=== PATIENT | male | born 1965 | race Caucasian/White ===

== ENCOUNTER 2020-03-08 17:56 | Outpatient (REF) | payer SELFPAY | END 2020-03-08 17:57 | disposition home or self-care (01) | LOC: HO.LAB 17:56 | PROVIDERS: Visit Provider Internal Medicine | DX: Z20.828 Contact with and (suspected) exposure to other viral communicable diseases (principal) | CPT/HCPCS: C9803; U0003 ==

== ENCOUNTER 2022-05-31 10:35 | Emergency (ER) | payer MEDICAID, SELFPAY ==
--- NOTE | ~2022-05-31 | US_ITS ---
EXAMINATION: US SCROTUM CLINICAL INFORMATION: Right testicular pain, urinary symptoms. COMPARISON: None TECHNIQUE: A sonogram of the scrotum was performed assessing hernández-scale appearance and color Doppler flow. Spectral Doppler analysis of the arterial and venous flow were performed in the testes bilaterally. FINDINGS: RIGHT: Right testicle measures 4.5 x 2.3 x 3.1 cm, volume 16.6 mL. No focal testicular parenchymal lesions are visualized. Spectral Doppler analysis of the arterial and venous flow is normal in the right testis. Right epididymal head is normal in size. There are small right hydrocele. Right epididymal Doppler flow is normal. LEFT: Left testicle measures 4.7 x 2.3 x 2.8 cm, volume 15.4 mL. No focal testicular parenchymal lesions are visualized. Spectral Doppler analysis of the arterial and venous flow is normal in the left testis. Left epididymal head is normal in size. No left hydrocele or varicocele is seen. Left epididymal Doppler flow is normal. US/US scrotum IMPRESSION: 1. No intratesticular abnormality bilaterally. 2. Very small right hydrocele.
--- NOTE | ~2022-05-31 | CT_ITS ---
EXAMINATION: CT ABDOMEN AND PELVIS WITHOUT CONTRAST CLINICAL INFORMATION: Right-sided flank pain COMPARISON: None TECHNIQUE: Multidetector volumetric imaging was performed from the superior aspect of the liver through the pubic symphysis. Sagittal and coronal reformatted images were obtained on the technologist's workstation. This CT examination was performed using dose optimization techniques as appropriate, variously including the following: *Automated exposure control *Adjustment of mA and/or kV according to patient size (this includes techniques or standardized protocols for targeted exams where dose is matched to indication/reason for exam; i.e. extremities or head) *Use of iterative reconstruction technique DLP: 273 mGy-cm FINDINGS: LUNG BASES: The visualized lung bases are unremarkable. LIVER, GALLBLADDER, AND BILIARY TREE: The liver is normal in size, shape, and attenuation. No focal hepatic lesion or biliary ductal dilatation is present. The gallbladder is unremarkable with no evidence of radiopaque gallstones, gallbladder wall thickening, or obvious pericholecystic inflammatory changes. PANCREAS: Unremarkable. SPLEEN: Unremarkable. ADRENAL GLANDS: Unremarkable. KIDNEYS AND URETERS: The kidneys are normal in size, shape, and attenuation. There are 2 calcifications seen in the left kidney in the region of the lolly that were not present at the time of the prior study, the largest measuring 3 mm with another tiny punctate 1 to 2 mm calcification. This may represent nonobstructing calculi but also created represent vascular calcifications. There is certainly no hydronephrosis, hydroureter, or left-sided or ureter calculi seen. No perinephric stranding. BLADDER: The bladder is quite distended. No calculi or masses GASTROINTESTINAL TRACT: The small and large bowel are unremarkable. The appendix is unremarkable. ABDOMINAL WALL: No significant hernia is appreciated. LYMPH NODES: No retroperitoneal lymphadenopathy. VASCULAR: Ossific changes are seen in the aorta and iliofemoral vessels without aneurysm. PELVIC VISCERA: Unremarkable. OSSEOUS STRUCTURES: Unremarkable. CT/CT abdomen pelvis wo IV con IMPRESSION: 1. A cause for the patient's right-sided flank pain has not been found. 2. Incidental note made of 2 possible small nonobstructing right renal calculi (versus vascular calcifications). Fleischner guidelines were followed.
--- NOTE | ~2022-05-31 | US_ITS ---
EXAMINATION: US SCROTUM CLINICAL INFORMATION: Right testicular pain, urinary symptoms. COMPARISON: None TECHNIQUE: A sonogram of the scrotum was performed assessing hernández-scale appearance and color Doppler flow. Spectral Doppler analysis of the arterial and venous flow were performed in the testes bilaterally. FINDINGS: RIGHT: Right testicle measures 4.5 x 2.3 x 3.1 cm, volume 16.6 mL. No focal testicular parenchymal lesions are visualized. Spectral Doppler analysis of the arterial and venous flow is normal in the right testis. Right epididymal head is normal in size. There are small right hydrocele. Right epididymal Doppler flow is normal. LEFT: Left testicle measures 4.7 x 2.3 x 2.8 cm, volume 15.4 mL. No focal testicular parenchymal lesions are visualized. Spectral Doppler analysis of the arterial and venous flow is normal in the left testis. Left epididymal head is normal in size. No left hydrocele or varicocele is seen. Left epididymal Doppler flow is normal. US/US scrotum doppler IMPRESSION: 1. No intratesticular abnormality bilaterally. 2. Very small right hydrocele.
[2022-05-31 10:52] VITALS: BP 144/95; PULSE 82; RESP 18; TEMP 36.4; O2SAT 99; BMI 23.4
[2022-05-31 11:09] LABS: MANUAL DIFF FLAG NO
[2022-05-31 11:14] LABS: Basophils Absolute Auto 0.1 X10*3/uL (0.0-0.2); Basophils Percent Auto 0.7 % (0-2); Eosinophils Percent Auto 0.3 % (0-4); Hematocrit 40.6 % (42.0-52.0); Hemoglobin 13.7 g/dl (14.0-18.0); Imm Gran Abs Auto 0.02 X10*3/uL (0.00-0.03); Imm Gran Pct Auto 0.3 % (0.0-0.4); Lymphocytes Absolute Auto 2.2 X10*3/uL (1.2-4.9); Lymphocytes Percent Auto 29.9 % (20-40); Mean Corpuscular HGB Conc 33.7 g/dl (31.0-36.0); Mean Corpuscular Hemoglobin 29.4 pg (27.0-33.0); Mean Corpuscular Volume 87.1 fL (80.0-98.0); Mean Platelet Volume 10.4 fL (9.4-12.4); Monocytes Absolute Auto 0.6 X10*3/uL (0.1-1.2); Monocytes Percent Auto 7.9 % (2-11); Neutrophils Absolute Auto 4.4 x10*3/uL (2.0-8.3); Neutrophils Percent Auto 60.9 % (45-73); Platelet Count 253 X10*3/uL (160-400); Red Blood Count 4.66 X10*6/uL (4.60-5.80); Red Cell Distribution Width 12.3 % (11.0-16.0); White Blood Count 7.3 X10*3/uL (4.8-10.8)
[2022-05-31 11:27] LABS: Alanine Aminotransferase 16 U/L (0-40); Albumin Level 3.9 g/dL (3.5-5.0); Alkaline Phosphatase 59 U/L (39-117); Anion Gap 9 (12-20); Aspartate Amino Transferase 21 U/L (5-37); Bilirubin Direct 0.2 mg/dL (0.0-0.5); Bilirubin Total 0.7 mg/dL (0.0-1.0); Blood Urea Nitrogen 18 mg/dL (9-16); Carbon Dioxide 23 mmol/L (22-29); Chloride 110 mmol/L (96-108); Creatinine Clr Calc Pharmacy 75.1; Estimated Glomerular Filt Rate > 60; Glucose Random 130 mg/dL (60-115); Lipase 41 U/L (8-78); Potassium 4.3 mmol/L (3.3-5.1); Sodium 138 mmol/L (135-145); Total Protein 6.5 g/dL (6.5-8.0)
--- NOTE | 2022-05-31 15:05 | ED.ABDPAIN ---
HPI - Abdominal Pain General Chief Complaint: Abdominal Pain Stated Complaint: LRQ pain rad to groin Time Seen by Provider: 05/31/22 14:40 Source: patient Mode of arrival: ambulatory Limitations: no limitations History of Present Illness HPI narrative: Pt is a 56 y/o male with a history or kidney stones on the right side, cc right side flank pain that started yesterday morning. Pt states he started having pain with urination of about 2 weeks ago. Yesterday morning he started with right lower back pain, as the day progressed it went around to the right lower abdomen and then down into the groin. It is a stabbing pain, 8/10. He is also experiencing nausea. No shortness of breath, fever, chest pain, vomiting, diarrhea, hematuria, swelling of the groin or testicles. NO new sexual partners MD elicited complaint: abdominal pain and flank pain Pertinent past history: kidney stones Onset (ago): day(s) (1) Pain Consistency: constant Location: RLQ, R flank and groin (right side) Severity: moderate Pain scale (0-10): 8 Quality: stabbing Exacerbating factors: nothing Relieving factors: nothing Context: history of similar episodes Associated symptoms: nausea Related Data Previous Rx's Medication Instructions Recorded cyclobenzaprine 10 mg tablet 10 mg PO TID PRN muscle spasm #10 05/31/22 tabs ibuprofen 600 mg tablet 600 mg PO Q8H PRN pain #20 tabs 05/31/22 Allergies Allergy/AdvReac Type Severity Reaction Status Date / Time No Known Allergies Allergy Unverified 12/10/19 15:38 Review of Systems Review of Systems Yes all other systems are reviewed and are negative Constitutional: Reports no additional constitutional complaints, Denies body ache(s), Denies chills, Denies fever(s), Denies headache(s) and Denies weakness Eyes: Reports no additional eye complaints and Denies change in vision Reports system reviewed and no additional complaints, except as documented, Denies dizziness, Denies headache(s), Denies nasal congestion, Denies nasal discharge and Denies neck pain Cardiovascular: Reports no additional cardiovascular complaints, Denies chest pain, Denies leg edema and Denies dyspnea Respiratory: Reports no additional respiratory complaints, Denies cough and Denies dyspnea Gastrointestinal: Reports no additional gastrointestinal complaints, Reports abdominal pain, Denies diarrhea, Reports nausea and Denies vomiting Genitourinary: Reports dysuria (2 weeks), Denies scrotal swelling and Denies urinary incontinence Musculoskeletal: Reports no additional musculoskeletal complaints, Reports back pain, Denies arthralgias, Denies joint swelling, Denies neck pain, Denies numbness and Denies tingling Skin/Breast: Reports system reviewed and no additional complaints, except as docu and Denies rash Reports system reviewed and no additional complaints, except as documented, Denies dizziness, Denies headache(s), Denies numbness, Denies tingling and Denies weakness [facility] Past Medical History Attestation statement: The following information was validated with the patient. Source: old records reviewed and nursing notes reviewed Social History Social History Advance Directives: Yes Advance Directives Information Provided: Yes Advance Directives on File: No Physical Exam ED Vital Signs: Vital Signs - 24 hr 05/31/22 10:52 Temperature 97.6 F Pulse Rate 82 Respiratory Rate 18 Blood Pressure 144/95 H Pulse Oximetry 99 Oxygen Delivery Method Room Air BMI result Body Mass Index 23.4 Const General: cooperative, alert and awake Orientation/consciousness: patient oriented x3 Limitations: no limitations HENSC Head: Yes normal to inspection Ears: hearing grossly normal bilaterally General nose exam: Normal external nose present Face and sinus: Yes normal facial exam Mouth: Normal oral and palatal mucosa present Neck Neck: Yes normal visual inspection and Yes no lymphadenopathy Chest Chest palpation & inspection: normal inspection of the chest Resp Effort & Inspection: normal respiratory effort and able to speak in complete sentences Auscultation: clear to auscultation bilaterally Cardio Rate: regular rate Rhythm: regular rhythm Peripheral pulses: Peripheral pulses 2+ throughout GI Inspection: Yes normal to inspection, No distended and No visible pulsation Palpation (GI): no hepatomegaly and No Rebound tenderness present Auscultation: normal bowel sounds Other: +right testicle tenderness to palp Done with [employer] student General: Yes CVA tenderness on the right Male General Exam: Yes normal external exam Penis: normal penis and uncircumcised Scrotum: scrotum normal Testes: Testes normal Back/Spine/Pelvis Back: CVA tenderness Cervical Spine: normal cervical lordosis Thoracic/Lumbar Spine: thoracic and lumbar spine normal to inspection Skin General skin exam: no rashes or lesions noted Neuro General: patient oriented x3 Extrem General: Yes normal to inspection and Yes full ROM Psych Appearance: grossly normal Mental Status: mental status grossly normal Speech and movement: Normal speech and movement present Affect: normal affect Attitude: cooperative Course Course Course Narrative: Labs, UA, CT are unremarkable. Will obtain testicular ultrasound Reevaluation(s) Reevaluation #1: Testicular ultrasound was very small right-sided hydrocele. No evidence of torsion or epididymitis. Patient pain is well controlled. Patient reports yesterday while pushing a cart at work he did feel some pain in his right lower back. This may be lumbar radiculopathy or strain. Patient will be discharged home with NSAID, muscle relaxants and recommendations follow-up with primary care for any continued symptoms. Reviewed worrisome signs and symptoms of when to return to the emergency room. Comfortable plan for discharge home Medical Decision Making Medical Decision Making [facility] Narrative: Patient presenting with right flank pain w/ radiation to right testicle , dysuria, and is afebrile. Differential included STI, UTI, pyelonephritis, diverticulitis, nephrolithiasis, appendicitis, or epididymitis. Also considered but less likely given history and physical exam included inguinal hernia, femoral hernia, constipation, bowel perforation, gastritis, pancreatitis, mesenteric ischemia, testicular torsion Plan: labs, UA/cx, CT NG, CT A/P, pain control, antiemetics, reassessment Differential Diagnosis Differential Diagnoses: The differential diagnosis associated with the presentation includes see above Lab Data MDM Lab Attestation statement: I reviewed the patient's lab results. 05/31/22 11:04 05/31/22 11:04 Labs: Lab Results 05/31/22 05/31/22 05/31/22 Range/Units 11:04 11:04 15:41 WBC 7.3 (4.8-10.8) X10*3/uL RBC 4.66 (4.60-5.80) X10*6/uL Hgb 13.7 L (14.0-18.0) g/dl Hct 40.6 L (42.0-52.0) % MCV 87.1 (80.0-98.0) fL MCH 29.4 (27.0-33.0) pg MCHC 33.7 (31.0-36.0) g/dl RDW 12.3 (11.0-16.0) % Plt Count 253 (160-400) X10*3/uL MPV 10.4 (9.4-12.4) fL Immature Gran % (Auto) 0.3 (0.0-0.4) % Neut % (Auto) 60.9 (45-73) % Lymph % (Auto) 29.9 (20-40) % [place] % (Auto) 7.9 (2-11) % Eos % (Auto) 0.3 (0-4) % Baso % (Auto) 0.7 (0-2) % Lymph # (Auto) 2.2 (1.2-4.9) X10*3/uL [place] # (Auto) 0.6 (0.1-1.2) X10*3/uL Eos # (Auto) 0.0 (0.0-0.4) X10*3/uL Baso # (Auto) 0.1 (0.0-0.2) X10*3/uL Abs Immat Gran (auto) 0.02 (0.00-0.03) X10*3/uL Absolute Neuts (auto) 4.4 (2.0-8.3) x10*3/uL Absolute Nucleated RBC 0.000 (0.0-0.012) X10*3/uL Nucleated RBC % (auto) 0.0 (0.0-0.2) /100WBC Sodium 138 (135-145) mmol/L Potassium 4.3 (3.3-5.1) mmol/L Chloride 110 H (96-108) mmol/L Carbon Dioxide 23 (22-29) mmol/L Anion Gap 9 L (12-20) BUN 18 H (9-16) mg/dL Creatinine 0.93 (0.5-1.4) mg/dL Estim Creat Clear Calc 75.1 Estimated GFR > 60 Random Glucose 130 H (60-115) mg/dL Calcium 9.0 (8.4-10.2) mg/dL Total Bilirubin 0.7 (0.0-1.0) mg/dL Direct Bilirubin 0.2 (0.0-0.5) mg/dL AST 21 (5-37) U/L ALT 16 (0-40) U/L Alkaline Phosphatase 59 (39-117) U/L Total Protein 6.5 (6.5-8.0) g/dL Albumin 3.9 (3.5-5.0) g/dL Lipase 41 (8-78) U/L Urine Color Yellow Urine Appearance Clear Urine pH 5.5 (5.0-9.0) Ur Specific [place] 1.020 (1.005-1.025) Urine Protein Negative (Neg-Trace) mg/dL Urine Glucose (UA) Negative (Negative) mg/dL Urine Ketones Negative (Negative) mg/dL Urine Blood Negative (Negative) Urine Nitrite Negative (Negative) Ur Leukocyte Esterase Negative (Negative) Independent Interpretation I performed an independent interpretation of an: Ultrasound and CT Scan Interpretation: I independently reviewed the CT scan and agree with radiologist's report I independently reviewed the ultrasound and agree with radiologist repot Radiology Impression Discussion of test interpretation with radiology: I have reviewed the radiologist's reading. Radiologist Impression: FINDINGS: LUNG BASES: The visualized lung bases are unremarkable.? LIVER, GALLBLADDER, AND BILIARY TREE: The liver is normal in size, shape, and attenuation. No focal hepatic lesion or biliary ductal dilatation is present. The gallbladder is unremarkable with no evidence of radiopaque gallstones, gallbladder wall thickening, or obvious pericholecystic inflammatory changes.? PANCREAS: Unremarkable.? SPLEEN: Unremarkable.? ADRENAL GLANDS: Unremarkable.? KIDNEYS AND URETERS: The kidneys are normal in size, shape, and attenuation. There are 2 calcifications seen in the left kidney in the region of the lolly that were not present at the time of the prior study, the largest measuring 3 mm with another tiny punctate 1 to 2 mm calcification. This may represent nonobstructing calculi but also created represent vascular calcifications. There is certainly no hydronephrosis, hydroureter, or left-sided or ureter calculi seen. No perinephric stranding. ? BLADDER: The bladder is quite distended. No calculi or masses? GASTROINTESTINAL TRACT: The small and large bowel are unremarkable. The appendix is unremarkable.? ABDOMINAL WALL: No significant hernia is appreciated.? LYMPH NODES: No retroperitoneal lymphadenopathy. VASCULAR: Ossific changes are seen in the aorta and iliofemoral vessels without aneurysm. PELVIC VISCERA: Unremarkable.? OSSEOUS STRUCTURES: Unremarkable.? CT/CT abdomen pelvis wo IV con IMPRESSION: 1.? A cause for the patient's right-sided flank pain has not been found. 2.? Incidental note made of 2 possible small nonobstructing right renal calculi (versus vascular calcifications). ? Fleischner guidelines were followed. FINDINGS: RIGHT: Right testicle measures 4.5 x 2.3 x 3.1 cm, volume 16.6 mL. No focal testicular parenchymal lesions are visualized. Spectral Doppler analysis of the arterial and venous flow is normal in the right testis. Right epididymal head is normal in size. There are small right hydrocele. Right epididymal Doppler flow is normal. LEFT: Left testicle measures 4.7 x 2.3 x 2.8 cm, volume 15.4 mL. No focal testicular parenchymal lesions are visualized. Spectral Doppler analysis of the arterial and venous flow is normal in the left testis. Left epididymal head is normal in size. No left hydrocele or varicocele is seen. Left epididymal Doppler flow is normal. US/US scrotum IMPRESSION: ? 1. No intratesticular abnormality bilaterally. 2. Very small right hydrocele. Medications Administered Discontinued Medications Generic Name Dose Route Start Last Admin Trade Name Freq PRN Reason Stop Dose Admin Sodium Chloride 1,000 mls @ 999 mls/hr 05/31/22 15:03 05/31/22 15:22 Ns IV 05/31/22 16:03 999 mls/hr .Q1H1M STA Administration Ketorolac Tromethamine 30 mg 05/31/22 15:03 05/31/22 15:21 Ketorolac Tromethamine 30 Mg/Ml Vial IVPUSH 05/31/22 15:04 30 mg ONCE ONE Administration Ondansetron HCl 4 mg 05/31/22 15:03 05/31/22 15:21 Ondansetron Hcl 4 Mg/2 Ml Vial IVPUSH 05/31/22 15:04 4 mg ONCE ONE Administration Discharge Plan Discharge Clinical Impression: Abdominal pain, Hydrocele Patient Disposition: Home, Self-Care Instructions: Hydrocele (ED), Abdominal Pain (ED) Additional Instructions: Your ct scan does not show any kidney stones causing your pain. Your lab work and urine sample are normal. Your ultrasound shows a small right hydrocele which is a nonspecific finding. This pain be muscular. No heavy lifting or bending Prescriptions: New ibuprofen 600 mg tablet 600 mg PO Q8H PRN (Reason: pain) Qty: 20 0RF cyclobenzaprine 10 mg tablet 10 mg PO TID PRN (Reason: muscle spasm) Qty: 10 0RF Referrals: Physician,None [Primary Care Provider] - Stand Alone Forms: Work/School Release
[2022-05-31] MEDS: Ketorolac Tromethamine 30 MG/ML VIAL IVPUSH (15:21)
[2022-05-31] MEDS: ondansetron HCL 4 MG/2 ML VIAL IVPUSH (15:21)
[2022-05-31] MEDS: 0.9 % Sodium Chloride 1,000 ML 999 ML IV (15:22)
[2022-05-31 16:25] LABS: Appearance Urine Clear; Color Urine Yellow; Glucose Urine UA Negative (Negative); Leukocyte Esterase Urine Negative (Negative); Nitrite Urine Negative (Negative); PH 5.5 (5.0-9.0); Urine Blood Negative (Negative); Urine Ketones Negative (Negative); Urine Protein Negative (Neg-Trace)
[2022-06-01 02:25] LABS: CT PCR NOT DETECTED (Not Detect.); NG PCR NOT DETECTED (Not Detect.)
== END 2022-05-31 18:12 | disposition home or self-care (01) ==
PROVIDERS: Nurse Practitioner Family; Emergency Provider Emergency Medicine Emergency Medical Services
DX: N43.3 Hydrocele, unspecified (principal); R10.31 Right lower quadrant pain; N50.82 Scrotal pain; R30.0 Dysuria; Z79.899 Other long term (current) drug therapy
CPT/HCPCS: 0353U; 36415; 74176; 76870; 80053; 81003; 82248; 83690; 85025; 93975; 96361; 96374; 96375; 99284; J1885; J2405

== ENCOUNTER 2023-02-22 14:54 | Emergency (ER) | payer MEDICAID, SELFPAY ==
--- NOTE | ~2023-02-22 | CT_ITS ---
EXAMINATION: CT ABDOMEN AND PELVIS WITH CONTRAST CLINICAL INFORMATION: Left lower quadrant pain. COMPARISON: 05/31/2022 TECHNIQUE: Multidetector volumetric images were obtained from the superior aspect of the liver through the pubic symphysis following administration 85 mL of Omnipaque 350 intravenous contrast. Sagittal and coronal reformatted images were obtained on the technologist's workstation. Oral contrast: No This CT examination was performed using dose optimization techniques as appropriate, variously including the following: *Automated exposure control *Adjustment of mA and/or kV according to patient size (this includes techniques or standardized protocols for targeted exams where dose is matched to indication/reason for exam; i.e. extremities or head) *Use of iterative reconstruction technique DLP: 421 mGy-cm FINDINGS: LUNG BASES: The visualized lung bases are unremarkable. LIVER, GALLBLADDER, AND BILIARY TREE: The liver is normal in size, shape, and attenuation. No focal hepatic lesion or biliary ductal dilatation is present. The gallbladder is unremarkable with no evidence of radiopaque gallstones, gallbladder wall thickening, or obvious pericholecystic inflammatory changes. PANCREAS: Unremarkable. SPLEEN: Unremarkable. ADRENAL GLANDS: Unremarkable. KIDNEYS AND URETERS: The kidneys are normal in size, shape, and attenuation. No hydronephrosis, hydroureter, or calculi seen. No perinephric stranding. BLADDER: Unremarkable. GASTROINTESTINAL TRACT: There is infiltrative change/fluid along the distal left colon with a possible small single diverticula. The appendix is visualized and is within normal limits ABDOMINAL WALL: No significant hernia is appreciated. LYMPH NODES: Normal. VASCULAR: There is atherosclerotic plaque of the abdominal aorta and proximal branches. PELVIC VISCERA: Unremarkable. OSSEOUS STRUCTURES: Unremarkable. CT/CT abdomen pelvis w IV con IMPRESSION: Infiltrative change along the distal descending colon with a possible single adjacent diverticula. Findings possibly diverticulitis versus epiploic appendagitis. No other significant abnormality identified. Fleischner guidelines were followed.
--- NOTE | 2023-02-22 14:59 | ED_ITS ---
HPI - General Adult General Chief complaint: Abdominal Pain Stated complaint: LLQ ABD PAIN Time Seen by Provider: 02/22/23 16:23 Source: patient Mode of arrival: ambulatory Limitations: no limitations History of Present Illness HPI narrative: 57-year-old male history of kidney stones, presents to the emergency department for evaluation of left lower quadrant pain, nausea, fatigue, malaise, headache ongoing for the past 3 days. Patient presented to the [facility] walk-in clinic where they advised him to come into the emergency department due to location of pain and severity of pain. He reports severe 10/10 pain. He tells me pain is not relieved by anything or worsened by anything. Denies chest pain, shortness of breath, vomiting, diarrhea, vision changes, dizziness, weakness. Related Data Previous Rx's Medication Instructions Recorded cyclobenzaprine 10 mg tablet 10 mg PO TID PRN muscle spasm #10 05/31/22 tabs ibuprofen 600 mg tablet 600 mg PO Q8H PRN pain #20 tabs 05/31/22 amoxicillin 875 mg-potassium 1 tab PO BID #14 tabs 02/22/23 clavulanate 125 mg tablet Allergies Allergy/AdvReac Type Severity Reaction Status Date / Time No Known Allergies Allergy Unverified 12/10/19 15:38 Review of Systems 2 Review of Systems: Constitutional : No Weight loss, No Fever, No Chills, + Fatigue, No Malaise ENT/Mouth : No sore throat, No Rhinorrhea Eyes: No Eye Pain, No Swelling, No Redness Cardiovascular : No Chest Pain, No SOB, No Dyspnea on Exertion, No Orthopnea, No Edema, No Palpitations Respiratory : No Cough, No Sputum, No Wheezing Gastrointestinal : + Nausea, No Vomiting, No Diarrhea, No Constipation, + abdominal Pain, No Hematochezia, No Melena Genitourinary : No Dysuria, No Urinary Frequency, No Hematuria, Musculoskeletal : No joint pain, No Myalgias, No Joint Swelling Skin : No Skin Lesions, No rash Neuro : No Weakness, No Numbness, No Dizziness, No Headache Psych : No Anxiety/Panic, No Depression All other systems reviewed and are negative Yes all other systems are reviewed and are negative PMFSH Past Medical History Attestation statement: The following information was validated with the patient. Source: old records reviewed and nursing notes reviewed Social History Social History Advance Directives: No Advance Directives Information Provided: No Physical Exam ED Vital Signs: Vital Signs - 24 hr 02/22/23 15:12 02/22/23 16:52 Temperature 98.2 F 97.7 F Pulse Rate 59 71 Respiratory Rate 16 18 Blood Pressure 191/111 H 186/126 H Pulse Oximetry 100 98 Oxygen Delivery Method Room Air Room Air BMI result Body Mass Index 25.7 vss Appearance: Alert.? Oriented X3.? No acute distress.? Head: Normocephalic, atraumatic, no step-offs or deformities Eyes: Pupils equal, round and reactive to light.? ENT: Pharynx normal.? Neck: Normal inspection.? Neck supple.? CVS: Normal heart rate and rhythm.? Pulses normal.? Respiratory: No respiratory distress.? Breath sounds normal.? Abdomen: Soft and diffuse abdominal discomfort, with rebound tenderness. Normoactive bowel sounds throughout.? Skin: Skin warm and dry.? Normal skin color.? Normal skin turgor.? Extremities: No lower extremity edema.? No calf ttp. 5/5 strength to bilateral upper and lower extremities Back: no CVA tenderness bilaterally Neuro: Oriented X 3.? No motor deficit.? No sensory deficit. CN 2-12 intact Course Reevaluation(s) Reevaluation #1: CBC unremarkable. Chemistry no acute findings. UA, CT pending. Sign out to [facility] PATEL pending reeval, dispo, ct, ua Time: 16:21 Reevaluation #2: Patient received in sign-out at change of shift pending imaging, disposition. Patient's CT scan shows mild diverticulitis versus epiploic appendagitis. The patient still complains of mild left lower abdominal pain. He has no allergies will treat with Augmentin., UA does not show any sign of infection. Will repeat blood pressure but the patient is stable for discharge at this time. Time: 19:18 Medications Administered Discontinued Medications Generic Name Dose Route Start Last Admin Trade Name Freq PRN Reason Stop Dose Admin Iohexol 100 ml 02/22/23 16:22 02/22/23 16:22 Iohexol 350 Mg/Ml 100 Ml Infus..Btl IV 02/22/23 16:23 85 ml ONCE ONE Administration Morphine Sulfate 4 mg 02/22/23 14:57 02/22/23 15:29 Morphine Sulfate 4 Mg/Ml Cartridge IVPUSH 02/22/23 14:58 4 mg ONCE ONE Administration Protocol Morphine Sulfate 4 mg 02/22/23 15:46 02/22/23 16:27 Morphine Sulfate 4 Mg/Ml Cartridge IVPUSH 02/22/23 15:47 Not Given ONCE ONE Protocol Medical Decision Making Medical Decision Making [facility] Narrative: 57-year-old male presents with 3 days of nausea, abdominal pain to left lower quadrant worsening. Comes in from walk-in center at [facility] Physical exam with diffuse abdominal discomfort with rebound tenderness worse in the left lower quadrant. Normoactive bowel sounds throughout. Concerns for diverticulitis versus perforated divertic versus kidney stone versus obstructing uropathy versus pyelonephritis. Unlikely metabolic derangements however will rule out. Will also rule out UTI. Unlikely mesenteric ischemia, dissection. Plan labs, imaging, urine Differential Diagnosis Differential Diagnoses: The differential diagnosis associated with the presentation includes Concerns for diverticulitis versus perforated divertic versus kidney stone versus obstructing uropathy versus pyelonephritis. Unlikely metabolic derangements however will rule out. Will also rule out UTI. Unlikely mesenteric ischemia, dissection. Admission/Observation Consideration of admission/observation: Escalation of care including admission/observation considered possible Lab Data [facility] Lab Attestation statement: I reviewed the patient's lab results. 02/22/23 15:26 02/22/23 15:26 Labs: Lab Results 02/22/23 02/22/23 Range/Units 15:26 16:58 WBC 9.7 (4.8-10.8) X10*3/uL RBC 4.90 (4.60-5.80) X10*6/uL Hgb 13.9 L (14.0-18.0) g/dl Hct 42.3 (42.0-52.0) % MCV 86.3 (80.0-98.0) fL MCH 28.4 (27.0-33.0) pg MCHC 32.9 (31.0-36.0) g/dl RDW 13.0 (11.0-16.0) % Plt Count 219 (160-400) X10*3/uL MPV 11.1 (9.4-12.4) fL Immature Gran % (Auto) 0.3 (0.0-0.4) % Neut % (Auto) 60.9 (45-73) % Lymph % (Auto) 29.0 (20-40) % [place] % (Auto) 8.9 (2-11) % Eos % (Auto) 0.5 (0-4) % Baso % (Auto) 0.4 (0-2) % Lymph # (Auto) 2.8 (1.2-4.9) X10*3/uL [place] # (Auto) 0.9 (0.1-1.2) X10*3/uL Eos # (Auto) 0.1 (0.0-0.4) X10*3/uL Baso # (Auto) 0.0 (0.0-0.2) X10*3/uL Abs Immat Gran (auto) 0.03 (0.00-0.03) X10*3/uL Absolute Neuts (auto) 5.9 (2.0-8.3) x10*3/uL Absolute Nucleated RBC 0.000 (0.0-0.012) X10*3/uL Nucleated RBC % (auto) 0.0 (0.0-0.2) /100WBC Sodium 139 (135-145) mmol/L Potassium 4.7 (3.3-5.1) mmol/L Chloride 109 H (96-108) mmol/L Carbon Dioxide 22 (22-29) mmol/L Anion Gap 13 (12-20) BUN 13 (9-16) mg/dL Creatinine 1.07 (0.5-1.4) mg/dL Estim Creat Clear Calc 64.5 Estimated GFR > 60 Random Glucose 88 (60-115) mg/dL Calcium 9.3 (8.4-10.2) mg/dL Magnesium 2.1 (1.6-2.6) mg/dL Total Bilirubin 0.7 (0.0-1.0) mg/dL AST 41 H (5-37) U/L ALT 38 (0-40) U/L Alkaline Phosphatase 62 (39-117) U/L Total Protein 7.7 (6.5-8.0) g/dL Albumin 3.9 (3.5-5.0) g/dL Lipase 34 (8-78) U/L Urine Color Yellow Urine Appearance Clear Urine pH 7.0 (5.0-9.0) Ur Specific [place] 1.010 (1.005-1.025) Urine Protein Negative (Neg-Trace) mg/dL Urine Glucose (UA) Negative (Negative) mg/dL Urine Ketones Negative (Negative) mg/dL Urine Blood Negative (Negative) Urine Nitrite Negative (Negative) Ur Leukocyte Esterase Negative (Negative) Independent Interpretation I performed an independent interpretation of an: CT Scan Radiology Impression Discussion of test interpretation with radiology: I have reviewed the radiologist's reading. Critical Care Time Critical Care Time Critical Care Time: No Discharge Plan Discharge Clinical Impression: Diverticulitis Patient Disposition: Home, Self-Care Instructions: Diverticulitis (ED) Additional Instructions: Your CT scan showed a mild infection called diverticulitis Take Augmentin twice daily for the next 7 days Take ibuprofen/Tylenol for pain Follow-up primary doctor regarding your blood pressure It was quite elevated today, but you should have a recheck within 1 week Return for new or worsening symptoms Prescriptions: New amoxicillin-pot clavulanate 875-125 mg tablet 1 tab PO BID Qty: 14 0RF No Action ibuprofen 600 mg tablet 600 mg PO Q8H PRN (Reason: pain) Qty: 20 0RF cyclobenzaprine 10 mg tablet 10 mg PO TID PRN (Reason: muscle spasm) Qty: 10 0RF
[2023-02-22 15:12] VITALS: BP 178/100; BP 191/111; PULSE 59; PULSE 71; RESP 16; TEMP 36.8; O2SAT 100; O2SAT 98; BMI 25.7
[2023-02-22] MEDS: Morphine Sulfate 4 MG/ML CARTRIDGE IVPUSH (15:29)
[2023-02-22 15:31] LABS: Basophils Percent Auto 0.4 % (0-2); Eosinophils Absolute Auto 0.1 X10*3/uL (0.0-0.4); Eosinophils Percent Auto 0.5 % (0-4); Hematocrit 42.3 % (42.0-52.0); Hemoglobin 13.9 g/dl (14.0-18.0); Imm Gran Abs Auto 0.03 X10*3/uL (0.00-0.03); Imm Gran Pct Auto 0.3 % (0.0-0.4); Lymphocytes Absolute Auto 2.8 X10*3/uL (1.2-4.9); MANUAL DIFF FLAG NO; Mean Corpuscular HGB Conc 32.9 g/dl (31.0-36.0); Mean Corpuscular Hemoglobin 28.4 pg (27.0-33.0); Mean Corpuscular Volume 86.3 fL (80.0-98.0); Mean Platelet Volume 11.1 fL (9.4-12.4); Monocytes Absolute Auto 0.9 X10*3/uL (0.1-1.2); Monocytes Percent Auto 8.9 % (2-11); Neutrophils Absolute Auto 5.9 x10*3/uL (2.0-8.3); Neutrophils Percent Auto 60.9 % (45-73); Platelet Count 219 X10*3/uL (160-400); White Blood Count 9.7 X10*3/uL (4.8-10.8)
[2023-02-22 15:51] LABS: Alanine Aminotransferase 38 U/L (0-40); Albumin Level 3.9 g/dL (3.5-5.0); Alkaline Phosphatase 62 U/L (39-117); Anion Gap 13 (12-20); Aspartate Amino Transferase 41 U/L (5-37); Bilirubin Total 0.7 mg/dL (0.0-1.0); Blood Urea Nitrogen 13 mg/dL (9-16); Calcium 9.3 mg/dL (8.4-10.2); Carbon Dioxide 22 mmol/L (22-29); Chloride 109 mmol/L (96-108); Creatinine Clr Calc Pharmacy 64.5; Estimated Glomerular Filt Rate > 60; Glucose Random 88 mg/dL (60-115); Lipase 34 U/L (8-78); Magnesium 2.1 mg/dL (1.6-2.6); Potassium 4.7 mmol/L (3.3-5.1); Sodium 139 mmol/L (135-145); Total Protein 7.7 g/dL (6.5-8.0)
[2023-02-22] MEDS: iohexoL 350 MG/ML 100 ML INFUS..BTL IV (16:22)
[2023-02-22 16:52] VITALS: BP 186/126; PULSE 71; RESP 18; TEMP 36.5; O2SAT 98
[2023-02-22 17:10] LABS: Appearance Urine Clear; Color Urine Yellow; Glucose Urine UA Negative (Negative); Leukocyte Esterase Urine Negative (Negative); Nitrite Urine Negative (Negative); Urine Blood Negative (Negative); Urine Ketones Negative (Negative); Urine Protein Negative (Neg-Trace)
[2023-02-22 19:25] VITALS: BP 182/110; PULSE 66; RESP 20; TEMP 36.8; O2SAT 97
[2023-02-22] MEDS: Amoxicillin/Potassium Clav 875 MG TABLET PO (19:37)
== END 2023-02-22 19:47 | disposition home or self-care (01) ==
PROVIDERS: Physician Assistant; Emergency Provider Emergency Medicine
DX: K57.32 Diverticulitis of large intestine without perforation or abscess without bleeding (principal); R10.32 Left lower quadrant pain; R11.2 Nausea with vomiting, unspecified; R51.9 Headache, unspecified; Z79.899 Other long term (current) drug therapy
CPT/HCPCS: 36415; 74177; 80053; 81003; 83690; 83735; 85025; 96374; 99284; J2270; Q9967

== ENCOUNTER 2023-06-17 07:43 | Emergency (ER) | payer MEDICAID, SELFPAY ==
--- NOTE | ~2023-06-17 | CT_ITS ---
EXAMINATION: CT ABDOMEN AND PELVIS WITH CONTRAST CLINICAL INFORMATION: Left lower quadrant pain, fever, nausea, vomiting and diarrhea COMPARISON: CT abdomen pelvis 02/22/2023 TECHNIQUE: Multidetector volumetric images were obtained from the superior aspect of the liver through the pubic symphysis following administration 85 mL of Omnipaque 350 intravenous contrast. Sagittal and coronal reformatted images were obtained on the technologist's workstation. Oral contrast: No This CT examination was performed using dose optimization techniques as appropriate, variously including the following: *Automated exposure control *Adjustment of mA and/or kV according to patient size (this includes techniques or standardized protocols for targeted exams where dose is matched to indication/reason for exam; i.e. extremities or head) *Use of iterative reconstruction technique DLP: 350 mGy-cm FINDINGS: LUNG BASES: The visualized lung bases are unremarkable. LIVER, GALLBLADDER, AND BILIARY TREE: The liver is normal in size, shape, and attenuation. No focal hepatic lesion or biliary ductal dilatation is present. The gallbladder is unremarkable with no evidence of radiopaque gallstones, gallbladder wall thickening, or obvious pericholecystic inflammatory changes. PANCREAS: Unremarkable. SPLEEN: Unremarkable. ADRENAL GLANDS: Unremarkable. KIDNEYS AND URETERS: The kidneys are normal in size, shape, and attenuation. No hydronephrosis, hydroureter, or calculi seen. No perinephric stranding. BLADDER: Unremarkable. GASTROINTESTINAL TRACT: Compared to the 02/22/2023 exam, there is increasing inflammatory change around the distal descending colon with now clearly evident ovoid fat areas on the antimesenteric border. A few scattered sigmoid diverticula are seen. No extraluminal air or drainable pericolonic fluid collections are seen. Small bowel is unremarkable. The appendix is unremarkable. ABDOMINAL WALL: No significant hernia is appreciated. LYMPH NODES: No retroperitoneal lymphadenopathy. VASCULAR: Calcific atherosclerotic changes are present in the aorta and iliofemoral vessels. There is no evidence of an abdominal aortic aneurysm. PELVIC VISCERA: The prostate and seminal vesicles are unremarkable. OSSEOUS STRUCTURES: Unremarkable. CT/CT abdomen pelvis w IV con IMPRESSION: Increasing inflammatory change around the distal descending colon with now clearly evident ovoid fat areas within. Findings are most consistent with epiploic appendagitis. Fleischner guidelines were followed.
[2023-06-17 07:51] VITALS: BP 157/103; PULSE 72; RESP 17; TEMP 36.3; O2SAT 98; BMI 31.5
[2023-06-17 08:08] LABS: MANUAL DIFF FLAG NO
[2023-06-17 08:16] LABS: Basophils Absolute Auto 0.1 X10*3/uL (0.0-0.2); Basophils Percent Auto 0.7 % (0-2); Eosinophils Absolute Auto 0.1 X10*3/uL (0.0-0.4); Eosinophils Percent Auto 0.8 % (0-4); Hematocrit 42.3 % (42.0-52.0); Hemoglobin 13.9 g/dl (14.0-18.0); Imm Gran Abs Auto 0.04 X10*3/uL (0.00-0.03); Imm Gran Pct Auto 0.5 % (0.0-0.4); Lymphocytes Absolute Auto 2.3 X10*3/uL (1.2-4.9); Lymphocytes Percent Auto 29.7 % (20-40); Mean Corpuscular HGB Conc 32.9 g/dl (31.0-36.0); Mean Corpuscular Hemoglobin 28.5 pg (27.0-33.0); Mean Corpuscular Volume 86.7 fL (80.0-98.0); Mean Platelet Volume 11.2 fL (9.4-12.4); Monocytes Absolute Auto 0.7 X10*3/uL (0.1-1.2); Monocytes Percent Auto 9.2 % (2-11); Neutrophils Absolute Auto 4.5 x10*3/uL (2.0-8.3); Neutrophils Percent Auto 59.1 % (45-73); Platelet Count 207 X10*3/uL (160-400); Red Blood Count 4.88 X10*6/uL (4.60-5.80); Red Cell Distribution Width 13.1 % (11.0-16.0); White Blood Count 7.7 X10*3/uL (4.8-10.8)
[2023-06-17 08:39] LABS: Alanine Aminotransferase 32 U/L (0-40); Albumin Level 3.9 g/dL (3.5-5.0); Alkaline Phosphatase 76 U/L (39-117); Anion Gap 12 (12-20); Aspartate Amino Transferase 21 U/L (5-37); Bilirubin Direct 0.2 mg/dL (0.0-0.5); Bilirubin Total 0.6 mg/dL (0.0-1.0); Blood Urea Nitrogen 12 mg/dL (9-16); C Reactive Protein 1.76 mg/dL (< or = 0.50); Calcium 8.9 mg/dL (8.4-10.2); Carbon Dioxide 19 mmol/L (22-29); Chloride 110 mmol/L (96-108); Creatinine Clr Calc Pharmacy 73.8; Estimated Glomerular Filt Rate > 60; Glucose Random 149 mg/dL (60-115); Lipase 39 U/L (8-78); Potassium 4.1 mmol/L (3.3-5.1); Sodium 137 mmol/L (135-145); Total Protein 7.1 g/dL (6.5-8.0)
[2023-06-17 08:59] LABS: Erythrocyte Sedimentation Rate 11 MM/HR (0-15)
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
[2023-06-17] MEDS: Morphine Sulfate 4 MG/ML CARTRIDGE IVPUSH (10:15)
[2023-06-17] MEDS: 0.9 % Sodium Chloride 1,000 ML 999 ML IV (10:15)
[2023-06-17] MEDS: ondansetron HCL 4 MG/2 ML VIAL IVPUSH (10:15)
[2023-06-17 10:19] VITALS: BP 159/99; PULSE 64; RESP 16; O2SAT 99
[2023-06-17] MEDS: iohexoL 350 MG/ML 100 ML INFUS..BTL IV (10:53)
[2023-06-17 12:28] VITALS: BP 169/102; PULSE 67; RESP 16; O2SAT 98
[2023-06-17 13:14] VITALS: BP 158/109; PULSE 62; RESP 12; O2SAT 96
[2023-06-17 13:17] VITALS: BP 158/109; PULSE 62; RESP 12; TEMP 36.5; O2SAT 96
== END 2023-06-17 13:18 | disposition home or self-care (01) ==
PROVIDERS: Emergency Provider Emergency Medicine
DX: K63.89 Other specified diseases of intestine (principal); I10 Essential (primary) hypertension; Z90.81 Acquired absence of spleen
CPT/HCPCS: 36415; 74177; 80048; 80076; 83690; 85025; 85652; 86140; 96361; 96374; 96375; 99284; J2270; J2405; Q9967

== ENCOUNTER 2023-10-05 08:20 | Emergency (ER) | payer OTHER, SELFPAY ==
--- NOTE | ~2023-10-05 | CT_ITS ---
EXAMINATION: CT ABDOMEN AND PELVIS WITHOUT CONTRAST CLINICAL INFORMATION: Abdominal pain COMPARISON: 06/17/2023 TECHNIQUE: Multidetector volumetric imaging was performed from the superior aspect of the liver through the pubic symphysis. Sagittal and coronal reformatted images were obtained on the technologist's workstation. This CT examination was performed using dose optimization techniques as appropriate, variously including the following: *Automated exposure control *Adjustment of mA and/or kV according to patient size (this includes techniques or standardized protocols for targeted exams where dose is matched to indication/reason for exam; i.e. extremities or head) *Use of iterative reconstruction technique DLP: 437 mGy-cm FINDINGS: LUNG BASES: The visualized lung bases are unremarkable. LIVER, GALLBLADDER, AND BILIARY TREE: Liver is of low attenuation due to hepatic steatosis without intrahepatic masses, ductal dilatation or perihepatic ascites. The gallbladder is unremarkable with no evidence of radiopaque gallstones, gallbladder wall thickening, or obvious pericholecystic inflammatory changes. PANCREAS: Unremarkable. SPLEEN: Unremarkable. ADRENAL GLANDS: Unremarkable. KIDNEYS AND URETERS: The kidneys are normal in size, shape, and attenuation. No hydronephrosis, hydroureter, or calculi seen. No perinephric stranding. Minimal vascular calcifications seen on the right BLADDER: Unremarkable. GASTROINTESTINAL TRACT: The small and large bowel are unremarkable. The appendix is unremarkable. Seen on the previous examination epiploic appendagitis has been resolved. ABDOMINAL WALL: No significant hernia is appreciated. LYMPH NODES: Normal. VASCULAR: Unremarkable. PELVIC VISCERA: Unremarkable. OSSEOUS STRUCTURES: Unremarkable. CT/CT abdomen pelvis wo IV con IMPRESSION: Hepatic steatosis. Fleischner guidelines were followed.
[2023-10-05 08:27] VITALS: BP 154/103; PULSE 75; RESP 16; TEMP 36.4; O2SAT 98; BMI 28.8
--- NOTE | 2023-10-05 09:19 | ED.MALEGU ---
HPI - Male Genitourinary General Chief complaint: Urogenital-Male Stated complaint: blood in urine Time Seen by Provider: 10/05/23 09:13 History of Present Illness HPI Narrative: Patient is a 58-year-old male presents today with having pain to the right flank area. Patient is from home. Been noticing blood in his urine on and off. There has no fever no chills. No history of bladder cancer. Positive history of kidney stones in the past. No cough no congestion or upper respiratory symptoms. No chest pain. Positive history of splenectomy and also exploratory laparotomy done in the past. Related Data Previous Rx's ?Medication ?Instructions ?Recorded cyclobenzaprine 10 mg tablet 10 mg PO TID PRN muscle spasm #10 05/31/22 tabs ibuprofen 600 mg tablet 600 mg PO Q8H PRN pain #20 tabs 05/31/22 amoxicillin 875 mg-potassium 1 tab PO BID #14 tabs 02/22/23 clavulanate 125 mg tablet cyclobenzaprine 10 mg tablet 10 mg PO TID PRN muscle spasm #20 06/17/23 tabs ibuprofen 600 mg tablet 600 mg PO Q6H PRN pain #30 tabs 06/17/23 ondansetron 4 mg disintegrating 4 mg PO Q8H PRN nausea and 06/17/23 tablet vomiting #20 tabs Allergies Allergy/AdvReac Type Severity Reaction Status Date / Time No Known Allergies Allergy Verified 10/05/23 08:29 Review of Systems Review of Systems: Positive right flank pain positive blood in the urine Yes all other systems are reviewed and are negative PMFSH Past Medical History Medical History Diverticulitis HTN (hypertension) Surgical History Hx of splenectomy H/O exploratory laparotomy Social History Social History Patient Tobacco Use Status: Never used Tobacco Advance Directives: No Advance Directives Information Provided: Yes Physical Exam Vital Signs: Vital Signs: Last Vital Signs Temp 97.7 F 10/05/23 09:57 Pulse 71 10/05/23 09:57 Resp 17 10/05/23 09:57 BP 141/79 H 10/05/23 09:57 Pulse Ox 98 07/13/24 09:57 O2 Del Method Room Air 10/05/23 09:57 BMI result Body Mass Index 28.8 Appearance: Alert. Oriented X3. No acute distress. Eyes: Pupils equal, round and reactive to light. ENT: Pharynx normal. Neck: Normal inspection. Neck supple. No lymph nodes noted. No crepitus CVS: Normal heart rate and rhythm. Pulses normal. Normal S1 and S2 Respiratory: No respiratory distress. Breath sounds normal. No Wheezing. No rales Abdomen: Soft and nontender. No rigidity. No distention. good BS x4 Skin: Skin warm and dry. Normal skin color. Normal skin turgor. Extremities: No lower extremity edema. Neurovascular intact to all extremities. No Lacerations. No Rash Neuro: Oriented X 3. No motor deficit. No sensory deficit. Moving all extermities. No slurred speech Medications Administered Discontinued Medications Generic Name Dose Route Start Last Admin Trade Name Freq PRN Reason Stop Dose Admin Sodium Chloride 1,000 mls @ 999 mls/hr 10/05/23 09:30 10/05/23 10:18 Ns IV 10/05/23 10:30 999 mls/hr .Q1H1M RONA Administration Medical Decision Making Medical Decision Making [facility] Narrative: Patient's UA showed no blood in the urine. Patient well-appearing. CT scan of the abdomen was interpreted by radiology as no gross kidney stone. Patient's kidney function is normal. No distress. In stable condition. Patient has no blood in the urine by dip. Also has 0-2 red cells. Unlikely to have rhabdo. Differential Diagnosis Differential Diagnoses: The differential diagnosis associated with the presentation includes Rhabdo, hematuria, kidney stone, malignancy related issues Admission/Observation Consideration of admission/observation: Escalation of care including admission/observation considered Lab Data [facility] Lab Attestation statement: I reviewed the patient's lab results. 10/05/23 10:19 10/05/23 10:18 Labs: Lab Results 10/05/23 10/05/23 10/05/23 Range/Units 10:18 10:19 11:12 WBC 7.3 (4.8-10.8) X10*3/uL RBC 4.97 (4.60-5.80) X10*6/uL Hgb 14.2 (14.0-18.0) g/dl Hct 42.4 (42.0-52.0) % MCV 85.3 (80.0-98.0) fL MCH 28.6 (27.0-33.0) pg MCHC 33.5 (31.0-36.0) g/dl RDW 13.2 (11.0-16.0) % Plt Count 197 (160-400) X10*3/uL MPV 11.1 (9.4-12.4) fL Immature Gran % (Auto) 0.4 (0.0-0.4) % Neut % (Auto) 52.6 (45-73) % Lymph % (Auto) 36.0 (20-40) % [place] % (Auto) 9.2 (2-11) % Eos % (Auto) 1.1 (0-4) % Baso % (Auto) 0.7 (0-2) % Lymph # (Auto) 2.6 (1.2-4.9) X10*3/uL [place] # (Auto) 0.7 (0.1-1.2) X10*3/uL Eos # (Auto) 0.1 (0.0-0.4) X10*3/uL Baso # (Auto) 0.1 (0.0-0.2) X10*3/uL Abs Immat Gran (auto) 0.03 (0.00-0.03) X10*3/uL Absolute Neuts (auto) 3.8 (2.0-8.3) x10*3/uL Absolute Nucleated RBC 0.000 (0.0-0.012) X10*3/uL Nucleated RBC % (auto) 0.0 (0.0-0.2) /100WBC Sodium 139 (135-145) mmol/L Potassium 4.0 (3.3-5.1) mmol/L Chloride 112 H (96-108) mmol/L Carbon Dioxide 21 L (22-29) mmol/L Anion Gap 10 L (12-20) BUN 13 (9-16) mg/dL Creatinine 0.96 (0.5-1.4) mg/dL Estim Creat Clear Calc 82.6 Estimated GFR > 60 Random Glucose 114 (60-115) mg/dL Calcium 8.9 (8.4-10.2) mg/dL Total Bilirubin 0.7 (0.0-1.0) mg/dL Direct Bilirubin 0.2 (0.0-0.5) mg/dL AST 22 (5-37) U/L ALT 33 (0-40) U/L Alkaline Phosphatase 71 (39-117) U/L Total Protein 6.6 (6.5-8.0) g/dL Albumin 3.9 (3.5-5.0) g/dL Lipase 44 (8-78) U/L Urine Color Yellow Urine Appearance Clear Urine pH 5.5 (5.0-9.0) Ur Specific [place] 1.010 (1.005-1.025) Urine Protein Negative (Neg-Trace) mg/dL Urine Glucose (UA) Negative (Negative) mg/dL Urine Ketones Negative (Negative) mg/dL Urine Blood Negative (Negative) Urine Nitrite Negative (Negative) Ur Leukocyte Esterase Negative (Negative) Urine RBC 0-2 (0-2) /HPF Urine WBC 0-5 (0-5) /HPF Ur Squamous Epith Cells 0-2 (0-2) /HPF Urine Bacteria None Seen (None Seen) Hyaline Casts 0-2 (0-2) /LPF Radiology Impression Discussion of test interpretation with radiology: I have reviewed the radiologist's reading. Discharge Plan Discharge Clinical Impression: Hematuria Patient Disposition: Home, Self-Care Instructions: Hematuria (ED) Prescriptions: No Action ibuprofen 600 mg tablet 600 mg PO Q8H PRN (Reason: pain) Qty: 20 0RF cyclobenzaprine 10 mg tablet 10 mg PO TID PRN (Reason: muscle spasm) Qty: 10 0RF cyclobenzaprine 10 mg tablet 10 mg PO TID PRN (Reason: muscle spasm) Qty: 20 0RF ibuprofen 600 mg tablet 600 mg PO Q6H PRN (Reason: pain) Qty: 30 0RF ondansetron 4 mg tablet,disintegrating 4 mg PO Q8H PRN (Reason: nausea and vomiting) Qty: 20 0RF amoxicillin-pot clavulanate 875-125 mg tablet 1 tab PO BID Qty: 14 0RF Referrals: Denisse Jimenez MD [Primary Care Provider] - (CT scan of the abdomen was negative for acute evidence of kidney stone. Because she complaining of blood in the urine please follow-up with your doctor.) Print Language: Tajik
[2023-10-05 09:57] VITALS: BP 141/79; PULSE 71; RESP 17; TEMP 36.5; O2SAT 98
[2023-10-05] MEDS: 0.9 % Sodium Chloride 1,000 ML 999 ML IV (10:18)
[2023-10-05 10:23] LABS: MANUAL DIFF FLAG NO
[2023-10-05 10:26] LABS: Basophils Absolute Auto 0.1 X10*3/uL (0.0-0.2); Basophils Percent Auto 0.7 % (0-2); Eosinophils Absolute Auto 0.1 X10*3/uL (0.0-0.4); Eosinophils Percent Auto 1.1 % (0-4); Hematocrit 42.4 % (42.0-52.0); Hemoglobin 14.2 g/dl (14.0-18.0); Imm Gran Abs Auto 0.03 X10*3/uL (0.00-0.03); Imm Gran Pct Auto 0.4 % (0.0-0.4); Lymphocytes Absolute Auto 2.6 X10*3/uL (1.2-4.9); Mean Corpuscular HGB Conc 33.5 g/dl (31.0-36.0); Mean Corpuscular Hemoglobin 28.6 pg (27.0-33.0); Mean Corpuscular Volume 85.3 fL (80.0-98.0); Mean Platelet Volume 11.1 fL (9.4-12.4); Monocytes Absolute Auto 0.7 X10*3/uL (0.1-1.2); Monocytes Percent Auto 9.2 % (2-11); Neutrophils Absolute Auto 3.8 x10*3/uL (2.0-8.3); Neutrophils Percent Auto 52.6 % (45-73); Platelet Count 197 X10*3/uL (160-400); Red Blood Count 4.97 X10*6/uL (4.60-5.80); Red Cell Distribution Width 13.2 % (11.0-16.0); White Blood Count 7.3 X10*3/uL (4.8-10.8)
[2023-10-05 10:38] LABS: Alanine Aminotransferase 33 U/L (0-40); Albumin Level 3.9 g/dL (3.5-5.0); Alkaline Phosphatase 71 U/L (39-117); Anion Gap 10 (12-20); Aspartate Amino Transferase 22 U/L (5-37); Bilirubin Direct 0.2 mg/dL (0.0-0.5); Bilirubin Total 0.7 mg/dL (0.0-1.0); Blood Urea Nitrogen 13 mg/dL (9-16); Calcium 8.9 mg/dL (8.4-10.2); Carbon Dioxide 21 mmol/L (22-29); Chloride 112 mmol/L (96-108); Creatinine Clr Calc Pharmacy 82.6; Estimated Glomerular Filt Rate > 60; Glucose Random 114 mg/dL (60-115); Lipase 44 U/L (8-78); Sodium 139 mmol/L (135-145); Total Protein 6.6 g/dL (6.5-8.0)
[2023-10-05 11:26] LABS: Appearance Urine Clear; Color Urine Yellow; Glucose Urine UA Negative (Negative); Leukocyte Esterase Urine Negative (Negative); Nitrite Urine Negative (Negative); PH 5.5 (5.0-9.0); Urine Blood Negative (Negative); Urine Ketones Negative (Negative); Urine Protein Negative (Neg-Trace)
[2023-10-05 11:28] LABS: Bacteria Urine None Seen (None Seen); Hyaline Casts Urine 0-2 /LPF (0-2); RBC Urine 0-2 /HPF (0-2); Squamous Epithelial Cell Urine 0-2 /HPF (0-2); WBC Urine 0-5 /HPF (0-5)
[2023-10-05 12:00] VITALS: BP 144/86; PULSE 77; RESP 18; TEMP 36.8; O2SAT 97
[2023-10-05 12:40] VITALS: BP 118/68; PULSE 72; RESP 18; TEMP 36.6; O2SAT 98
== END 2023-10-05 12:41 | disposition home or self-care (01) ==
PROVIDERS: Emergency Provider Emergency Medicine Emergency Medical Services; PCP Internal Medicine
DX: R31.9 Hematuria, unspecified (principal); R10.9 Unspecified abdominal pain; I10 Essential (primary) hypertension; Z79.899 Other long term (current) drug therapy
CPT/HCPCS: 36415; 74176; 80048; 80076; 81001; 83690; 85025; 96360; 96361; 99284

== ENCOUNTER 2023-10-18 10:16 | Outpatient (REF) | payer OTHER, SELFPAY ==
--- NOTE | ~2023-10-18 | XR_ITS ---
EXAMINATION: XR LEFT ANKLE XR LEFT KNEE CLINICAL INFORMATION: Left ankle pain. Left knee pain. COMPARISON: None available. TECHNIQUE: AP, lateral, and mortise views of the left ankle were obtained. AP, lateral and bilateral oblique views of the left knee were obtained. FINDINGS: Left ankle: Alignment is anatomic. Ankle mortise is maintained. Talar dome is intact. No displaced fracture. There is medial soft tissue swelling. Left knee: Alignment is anatomic. Joint spaces are maintained. No significant joint effusion. XR/XR ankle LT min 3V IMPRESSION: No acute abnormality.
--- NOTE | ~2023-10-18 | XR_ITS ---
EXAMINATION: XR LEFT ANKLE XR LEFT KNEE CLINICAL INFORMATION: Left ankle pain. Left knee pain. COMPARISON: None available. TECHNIQUE: AP, lateral, and mortise views of the left ankle were obtained. AP, lateral and bilateral oblique views of the left knee were obtained. FINDINGS: Left ankle: Alignment is anatomic. Ankle mortise is maintained. Talar dome is intact. No displaced fracture. There is medial soft tissue swelling. Left knee: Alignment is anatomic. Joint spaces are maintained. No significant joint effusion. XR/XR knee LT 4V IMPRESSION: No acute abnormality.
== END 2023-10-18 10:17 | disposition home or self-care (01) ==
LOC: HO.HHCX 10:16
PROVIDERS: Visit Provider Nurse Practitioner Family
DX: S89.92XA Unspecified injury of left lower leg, initial encounter (principal); S93.492A Sprain of other ligament of left ankle, initial encounter
CPT/HCPCS: 73564; 73610

== ENCOUNTER 2023-10-21 08:16 | Outpatient (REF) | payer OTHER, SELFPAY ==
[2023-10-21 11:15] LABS: MANUAL DIFF FLAG NO
[2023-10-21 11:18] LABS: Basophils Absolute Auto 0.1 X10*3/uL (0.0-0.2); Basophils Percent Auto 0.6 % (0-2); Eosinophils Absolute Auto 0.1 X10*3/uL (0.0-0.4); Eosinophils Percent Auto 0.6 % (0-4); Hematocrit 44.6 % (42.0-52.0); Hemoglobin 14.5 g/dl (14.0-18.0); Imm Gran Abs Auto 0.04 X10*3/uL (0.00-0.03); Imm Gran Pct Auto 0.5 % (0.0-0.4); Lymphocytes Absolute Auto 2.5 X10*3/uL (1.2-4.9); Lymphocytes Percent Auto 30.9 % (20-40); Mean Corpuscular HGB Conc 32.5 g/dl (31.0-36.0); Mean Corpuscular Volume 86.3 fL (80.0-98.0); Mean Platelet Volume 11.7 fL (9.4-12.4); Monocytes Absolute Auto 0.7 X10*3/uL (0.1-1.2); Monocytes Percent Auto 8.4 % (2-11); Neutrophils Absolute Auto 4.7 x10*3/uL (2.0-8.3); Platelet Count 278 X10*3/uL (160-400); Red Blood Count 5.17 X10*6/uL (4.60-5.80)
[2023-10-21 12:11] LABS: Anion Gap 12 (12-20); Blood Urea Nitrogen 14 mg/dL (9-16); Calcium 9.6 mg/dL (8.4-10.2); Carbon Dioxide 22 mmol/L (22-29); Chloride 109 mmol/L (96-108); Cholesterol 199 mg/dL (<200); Estimated Glomerular Filt Rate > 60; Glucose Random 114 mg/dL (60-115); HDL Cholesterol 41 mg/dL (>40); LDL Cholesterol Calculated 135 mg/dL (<100); Potassium 4.2 mmol/L (3.3-5.1); Sodium 139 mmol/L (135-145); Triglycerides 117 mg/dL (<150)
== END 2023-10-21 08:17 | disposition home or self-care (01) ==
LOC: HO.HHCL 08:16
PROVIDERS: Visit Provider Nurse Practitioner Family
DX: R31.0 Gross hematuria (principal); M25.572 Pain in left ankle and joints of left foot; I10 Essential (primary) hypertension
CPT/HCPCS: 36415; 80048; 80061; 85025

== ENCOUNTER 2023-12-18 14:00 | Outpatient (AMB) | payer OTHER, SELFPAY ==
--- NOTE | 2023-12-18 14:07 | A.OFFVIS_ITS ---
Intake Visit Reasons: history of hematuria and kidney stones Intake Note: New Patient presents for initial visit for hematuria and kidney stones Urology Medications: none Blood Thinner: none Table Attendant Required: No Accompanied by: Self / Same As Patient Allergies No Known Allergies Allergy (Verified 12/18/23 14:41) Medication List - Last Reconciled 12/18/23 by NEGAR Rabago acetaminophen 500 mg PO Q6H PRN amlodipine 10 mg PO DAILY HPI Comments Details: Niels is a very pleasant 58-year-old male patient of Dr. French. He has a past medical history of diverticulitis and hypertension. He presents to the office today as a new patient for gross hematuria. In discussion with the patient today he reports approximately 2 months ago having experienced episodes of gross hematuria at which time he seeked emergency room care at which time a CT of the abdomen was ordered and performed and urology referral was made for further assessment evaluation. CT urogram results reviewed with the patient today. Bilateral kidneys are normal in size, shape, and attenuation. No hydronephrosis, hydroureter, or calculi seen. The bladder is unremarkable. He does report a previous history of nephrolithiasis however never requiring surgical intervention. When asked he does report noting episodes of urinary frequency however does not feel they are bothersome. He otherwise denies urinary urgency, incontinence, nocturia, dysuria, foul smelling urine, changes to urinary stream, flank pain, fever, and or chills. In office urinalysis results reviewed with the patient today. No microscopic hematuria noted. When asked he does report a previous history of nicotine dependence over 10 years ago. He reports having smoked approximately 1 pack of cigarettes for 15 years however has since quit. He denies any previous known workplace chemical exposure. We discussed further workup to include urine cytology as well as in office cystoscopy for further assessment evaluation. He otherwise offers no other issues or concerns at this time. [facility] Medical History Diverticulitis HTN (hypertension) Surgical History Hx of splenectomy H/O exploratory laparotomy Social History Patient Tobacco Use Status: Never used Tobacco Review of Systems Const All systems reviewed & are unremarkable except as noted in HPI and below Physical Exam Const General: cooperative, healthy appearing, comfortable, no acute distress, well developed, alert and awake Orientation/consciousness: patient oriented x3 Limitations: no limitations HEENT Head: Yes normal to inspection, Yes normocephalic and Yes atraumatic Ears: hearing grossly normal bilaterally Eyes General: appearance normal, both eyes and all related structures Neck Neck: Yes normal visual inspection and Yes trachea midline Chest Chest palpation & inspection: normal inspection of the chest Resp Effort & Inspection: normal respiratory effort and able to speak in complete sentences Cardio Rate: regular rate GI Inspection: Yes normal to inspection General: Yes no CVA tenderness Back/Spine/Pelvis Back: no CVA tenderness Skin General skin exam: no rashes or lesions noted Neuro General: patient oriented x3 Extrem General: Yes normal to inspection Psych Appearance: grossly normal and well kempt Mental Status: mental status grossly normal Speech and movement: Normal speech and movement present and Clear speech present Affect: normal affect Attitude: cooperative Thought process: Normal thought process present Thought content: Normal thought content present Insight: Fair insight present (Psych) Judgement: Fair judgement present (Psych) Results AMB Urinalysis, Automated UA Leukoctes 0 Noemi/uL Last Edit by Carolina Giraldo on 12/18/23 14:48 UA Nitrite Last Edit by Carolina Giraldo on 12/18/23 14:48 UA Urobilinogen 0.2 mg/dL Last Edit by Carolina Giraldo on 12/18/23 14:48 UA Protein 0 mg/dL Last Edit by Carolina Giraldo on 12/18/23 14:48 UA pH 6.0 Last Edit by Carolina Giraldo on 12/18/23 14:48 UA Blood 0 Adrian/uL Last Edit by Carolina Giraldo on 12/18/23 14:48 UA Specific [place] 1.030 Last Edit by Carolina Giraldo on 09/25/24 14:48 UA Ketone Last Edit by Carolina Giraldo on 12/18/23 14:48 UA Bilirubin 0 mg/dL Last Edit by Carolina Giraldo on 12/18/23 14:48 UA Glucose 0 mg/dL Last Edit by Carolina Giraldo on 12/18/23 14:48 Results Reviewed Results Reviewed: Date of Service: 10/05/23 EXAMINATION: CT ABDOMEN AND PELVIS WITHOUT CONTRAST FINDINGS: LUNG BASES: The visualized lung bases are unremarkable. LIVER, GALLBLADDER, AND BILIARY TREE: Liver is of low attenuation due to hepatic steatosis without intrahepatic masses, ductal dilatation or perihepatic ascites. The gallbladder is unremarkable with no evidence of radiopaque gallstones, gallbladder wall thickening, or obvious pericholecystic inflammatory changes. PANCREAS: Unremarkable. SPLEEN: Unremarkable. ADRENAL GLANDS: Unremarkable. KIDNEYS AND URETERS: The kidneys are normal in size, shape, and attenuation. No hydronephrosis, hydroureter, or calculi seen. No perinephric stranding. Minimal vascular calcifications seen on the right BLADDER: Unremarkable. GASTROINTESTINAL TRACT: The small and large bowel are unremarkable. The appendix is unremarkable. Seen on the previous examination epiploic appendagitis has been resolved. ABDOMINAL WALL: No significant hernia is appreciated. LYMPH NODES: Normal. VASCULAR: Unremarkable. PELVIC VISCERA: Unremarkable. OSSEOUS STRUCTURES: Unremarkable. IMPRESSION: Hepatic steatosis. Assessment & Plan Assessment & Plan (1) Gross hematuria: Code(s): R31.0 - Gross hematuria Category: Medical (2) Urinary frequency: Code(s): R35.0 - Frequency of micturition Category: Medical Plan In office urinalysis results reviewed with the patient today; will send for urine cytology. Discussed at length potential causes of gross hematuria. We discussed in office cystoscopy for further assessment evaluation. Recent CT urogram results reviewed with the patient today; as noted above. Discussed obtaining PSA for further assessment evaluation as patient reports episodes of urinary frequency. He reports be happy with current voiding parameters. Follow-up in office cystoscopy or sooner with any issues, concerns, and or questions. Orders: Orders AMB Urinalysis Automated Today Z13.9 - Encounter for screening, unspecified Prostate Specific Antigen Today N40.0 - Benign prostatic hyperplasia without lower urinary tract symptoms Medications: Discontinued cyclobenzaprine Discontinued Reason: Patient no longer taking 10 mg PO TID PRN 10 tabs 0RF muscle spasm ibuprofen Discontinued Reason: Patient no longer taking 600 mg PO Q8H PRN 20 tabs 0RF pain amoxicillin-pot clavulanate 875-125 mg Discontinued Reason: Patient no longer taking 1 tab PO BID 14 tabs 0RF cyclobenzaprine Discontinued Reason: Patient no longer taking 10 mg PO TID PRN 20 tabs 0RF muscle spasm ibuprofen Discontinued Reason: Patient no longer taking 600 mg PO Q6H PRN 30 tabs 0RF pain ondansetron Discontinued Reason: Patient no longer taking 4 mg PO Q8H PRN 20 tabs 0RF nausea and vomiting Patient Instructions: The patient had an opportunity to ask questions regarding the treatment plan. All questions were answered. Physical exam, labs, and imaging were discussed and reviewed in detail. As well as risks, benefits, and discussion of treatment choices. No major barriers to understanding were identified. The patient expressed understanding and agreement with the above treatment plan. The patient was made aware they should contact our office by phone for worsening of their current condition, the appearance of new symptoms, or with any questions or concerns. Compliance is encouraged with any medications and follow up testing that is ordered. It is a privilege to be allowed the opportunity to participate in? your urological care.? Again, if you have any questions or concerns If you have any questions or concerns please do not hesitate to contact me. The office is [phone]. This note is constructed using voice recognition software. While every effort has been made to ensure accuracy director of student life errors may have been included. Yours sincerely, NEGAR Rabago Coding Level of Care Code New Pt Level 3 (33337) Diagnoses Gross hematuria R31.0 Urinary frequency R35.0
== END 2023-12-18 14:50 | disposition home or self-care (01) ==
PROVIDERS: PCP Nurse Practitioner Family; Visit Provider Nurse Practitioner Family
DX: R31.0 Gross hematuria (principal); R35.0 Frequency of micturition; Z13.9 Encounter for screening, unspecified
CPT/HCPCS: 99203

== ENCOUNTER 2023-12-18 14:00 | Outpatient (REF) | payer OTHER, SELFPAY ==
[2023-12-18 17:58] LABS: Urine Cytology See Pathology rpt
== END 2023-12-18 14:01 | disposition home or self-care (01) ==
LOC: HO.LNP 14:00
PROVIDERS: PCP Nurse Practitioner Family; Visit Provider Nurse Practitioner Family
DX: R31.0 Gross hematuria (principal); R35.0 Frequency of micturition
CPT/HCPCS: 81003; 88112; 99202

== ENCOUNTER 2024-01-02 12:45 | Outpatient (REF) | payer OTHER, SELFPAY | END 2024-01-02 12:46 | disposition home or self-care (01) | LOC: HO.HOSX 12:45 | PROVIDERS: Visit Provider Physician Assistant | DX: M25.562 Pain in left knee (principal); M25.561 Pain in right knee; M17.11 Unilateral primary osteoarthritis, right knee | CPT/HCPCS: 73560; 99202 ==

== ENCOUNTER 2024-01-02 14:41 | Outpatient (AMB) | payer OTHER, SELFPAY ==
--- NOTE | 2024-01-02 15:04 | A.OFFVIS_ITS ---
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 Patient reports pain and swelling in both of his knees with his left knee being the worse. His pain increases with getting up from a sitting or kneeling position as well as prolong walking/standing. His pain is mostly at the posterior aspect of knee. He has muscle spasms in his calf area as well as some numbness and tingling. Finds little relief with Tylenol. Hx of a neck injury 25 years ago. No previous tx. 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 He states he has swelling and pain at the posterior aspect of his bilateral knees that is worse on his left knee. His pain is aggravated with getting up from a sitting position, kneeling and prolonged walking or ambulation. He also reports he has muscle spasm in his calf area as well as some numbness and tingling. He finds mild relief with Tylenol. He has not had any treatment in the past. He has a history of neck injury about 25 years ago. 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 Review of Systems Const All systems reviewed & are unremarkable except as noted in HPI and below Physical Exam Vital Signs: BMI result Body Mass Index 28.7 Const General: cooperative, healthy appearing, comfortable, no acute distress, well developed and alert Orientation/consciousness: patient oriented x3 HEENT Head: Yes normal to inspection, Yes normocephalic and Yes atraumatic Eyes General: appearance normal, both eyes and all related structures Resp Effort & Inspection: normal respiratory effort and able to speak in complete sentences Cardio Rate: regular rate Peripheral pulses: Peripheral pulses 2+ throughout GI Palpation (GI): Soft to palpation Skin Lesions: no lesions Rashes: no rashes Neuro General: patient oriented x3 Extrem Other: Left knee: Skin intact, no erythema or joint effusion. Tenderness along the medial and lateral joint line. Full ROM with crepitus. Negative Santino?s. No ligamentous laxity. NVI. ? Results Reviewed Results Reviewed: Xrays were obtained in the office today and personally reviewed by me of the left knee show mild oa Assessment & Plan Assessment & Plan (1) Osteoarthritis of right knee: Code(s): M17.11 - Unilateral primary osteoarthritis, right knee Category: Medical Plan We discussed options which include PT, NSAIDs and injections. The patient will defer on the injection today and proceed with PT and NSAIDs. If symptoms persist, she will contact me for an injection, otherwise, PRN. Orders: Orders PT Evaluation and Treatment 01/02/24 M17.11 - Unilateral primary osteoarthritis, right knee XR knee LT 2V 01/02/24 M25.562 - Pain in left knee XR knee RT 1V 01/02/24 M25.561 - Pain in right knee Patient Instructions: Scribed for Aminta Garcia PA-C, by Asaf Crockett medical social consultant, on 01/02/2024 at 2:45 PM EST.? I, Aminta Garcia PA-C, have personally reviewed and agree with the information entered by the scribe. Coding Level of Care Code New Pt Level 3 (36504) Complex EM visit Add On G2211 Diagnoses Osteoarthritis of right knee M17.11
[2024-01-02 15:08] VITALS: BMI 28.7
== END 2024-01-02 16:47 | disposition home or self-care (01) ==
LOC: HO.HOS 14:41
PROVIDERS: PCP Nurse Practitioner Family; Visit Provider Physician Assistant
DX: M17.11 Unilateral primary osteoarthritis, right knee (principal)
CPT/HCPCS: 99203; G2211

== ENCOUNTER 2024-01-14 08:16 | Outpatient (REF) | payer OTHER, SELFPAY ==
[2024-01-14 09:15] LABS: Estimated Average Glucose 131 mg/dL; Hemoglobin A1C 158.6728 umol/L; Hemoglobin A1c % 6.2 % (<6.0); Total Hemoglobin (HGBA1C) 3606.1084 umol/L
[2024-01-14 09:43] LABS: Cholesterol 224 mg/dL (<200); HDL Cholesterol 43 mg/dL (>40); LDL Cholesterol Calculated 153 mg/dL (<100); Triglycerides 141 mg/dL (<150)
[2024-01-14 09:55] LABS: Syphilis Screen Nonreactive (Nonreactive)
[2024-01-14 09:59] LABS: Prostate Specific Antigen 0.47 ng/mL (<0.05-4.0)
[2024-01-14 10:03] LABS: HBc Num1 0.25 S/CO (0.00-0.79); HBsAGNum1 0.26 S/CO (0.00-0.99); HIV Num 1 3.91 S/CO (0.00-0.99); Hepatitis A Antibody IgM 0.22 Index (0-0.79); Hepatitis B Core Antibody Nonreactive (Nonreactive); Hepatitis B Surface Antigen Negative (Negative); ~Hepatitis A Antibody IgM Nonreactive (Nonreactive); ~Hepatitis C Antibody Nonreactive (Nonreactive)
[2024-01-14 10:04] LABS: Vitamin D 25-OH Total 17.4 ng/mL (>30)
[2024-01-14 11:56] LABS: HIV AB/AG Nonreactive (Nonreactive); HIV Num 2 0.05 S/CO; HIV Num 3 0.05 S/CO
[2024-01-14 11:57] LABS: HBS Num1 > 1000.00 mIU/mL (0-7.99); ~Hepatitis B Surface Antibody REACTIVE (Nonreactive)
[2024-01-14 12:24] LABS: Reflex LDLD? No
== END 2024-01-14 08:17 | disposition home or self-care (01) ==
LOC: HO.LAB 08:16
PROVIDERS: PCP Internal Medicine; Visit Provider Urology
DX: N40.0 Benign prostatic hyperplasia without lower urinary tract symptoms (principal); K76.0 Fatty (change of) liver, not elsewhere classified; I10 Essential (primary) hypertension; S89.92XD Unspecified injury of left lower leg, subsequent encounter
CPT/HCPCS: 36415; 80061; 82306; 83036; 84153; 86704; 86706; 86709; 86780; 86803; 87340; 87389

== ENCOUNTER 2024-01-21 10:54 | Outpatient (AMB) | payer OTHER, SELFPAY ==
--- NOTE | 2024-01-21 11:20 | A.OFFVIS_ITS ---
Intake Visit Reasons: 1M Cysto/PSA(Gross Hematuria)PSA? Intake Note: Patient is Present for Cystoscopy/PSA Follow Up Urology Med: None Antibiotic Allergy:None Blood Thinner: None Recent PSA: 01/14/2024 PSA 0.47 URO- G Disposable Cystoscope lot: [id number] exp:04/25/2026 Allergies No Known Allergies Allergy (Verified 01/21/24 11:22) HPI Comments Details: Niels is a pleasant male. He is a patient of Dr. French. 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 Review of Systems Const Denies chills and Denies fever(s) Card Reports no additional complaints and Denies syncope Resp Denies cough GI Denies abdominal pain and Denies heartburn Reports as per HPI and Denies change in libido Neuro Denies syncope Psych Denies change in libido Endo Denies change in libido Physical Exam Const General: cooperative, healthy appearing, comfortable and no acute distress Orientation/consciousness: patient oriented x3 HEENT Face and sinus: Yes normal facial exam Mouth: moist mucous membranes Neck Neck: Yes normal visual inspection, Yes full ROM and Yes trachea midline Chest Chest palpation & inspection: normal inspection of the chest Resp Effort & Inspection: normal respiratory effort, able to speak in complete sentences and no respiratory distress GI Inspection: Yes normal to inspection Back/Spine/Pelvis Cervical Spine: normal cervical lordosis Thoracic/Lumbar Spine: thoracic and lumbar spine normal to inspection Skin General skin exam: no rashes or lesions noted Neuro General: patient oriented x3, gait normal, tone normal and moves all extremities Extrem General: Yes normal to inspection and Yes capillary refill normal Office Procedures Cystoscopy Consent Discussed risk and benefit or proposed procedure with the patient. Information consent for procedure given to the patient. Discussed technical aspects, risks, benefits and alternatives in full. Addressed all of the patient's questions and concerns regarding the procedure. The patient demonstrated knowledge and understanding. They wish to proceed with this procedure. Preparation The patient was prepped in the usual manner. A license issuer was present and in the room. Genitalia was prepped with betadine solution in a sterile manner. Lidocaine Jelly 2% was placed into the urethra and 16Fr flexible Olympus cystoscope was inserted into the meatus after adequate lubrication. Procedure Cystoscopy performed using a disposable Urovue digital 16 Lithuanian cystoscope. Meatus normal position Urethra anterior and posterior urethra normal Prostatic Urethra unremarkable Bladder examination with retroflexion of cystoscope Bladder Orifices normal shape and position Bladder Capacity median Trabeculations grade 1 Cellule Formation - Diverticulum Formation - Mucosal Erythema - Bladder Tumor - [id number] DISPOSABLE SCOPE URO-G FLEXIBLE SCOPE Procedure code (CPT) selection complete Office Meds lidocaine HCl 2 % mucosal jelly in applicator Performing Provider: Danny Parra MD Performing Location: [facility] Administered by: Prince Hernandez RN on 01/21/24 11:48 Dose Route Admin Location Dispensed Lot Number Expiration Date NDC Department Assistant 10 mL intra-urethral 10 mL nitrofurantoin monohydrate/macrocrystals 100 mg capsule Performing Provider: Danny Parra MD Performing Location: [facility] Administered by: Prince Hernandez RN on 01/21/24 11:48 Dose Route Admin Location Dispensed Lot Number Expiration Date NDC Department Assistant 100 mg PO 1 cap naproxen 500 mg tablet Performing Provider: Danny Parra MD Performing Location: [facility] Administered by: Prince Hernandez RN on 01/21/24 11:48 Dose Route Admin Location Dispensed Lot Number Expiration Date NDC Department Assistant 500 mg PO 1 tab Results AMB Urinalysis, Automated UA Leukoctes 0 Noemi/uL Last Edit by ANA ROSA Pastor on 01/21/24 11:40 UA Nitrite Negative Last Edit by ANA ROSA Pastor on 01/21/24 11:40 UA Urobilinogen 0.2 mg/dL Last Edit by ANA ROSA Pastor on 01/21/24 11:4 0 UA Protein 15 mg/dL Last Edit by DENNISE PastorA on 01/21/24 11:40 UA pH 5.5 Last Edit by Chrissie Winston RMA on 01/21/24 11:40 UA Blood 10 Adrian/uL Last Edit by Chrissie Winston, RMA on 01/21/24 11:40 UA Specific [place] 1.030 Last Edit by Chrissie Winston RMA on 01/21/24 11: 40 UA Ketone Negative Last Edit by Chrissie Winston RMA on 01/21/24 11:40 UA Bilirubin 0 mg/dL Last Edit by Chrissie Winston RMA on 01/21/24 11:40 UA Glucose 0 mg/dL Last Edit by Chrissie Winston A on 01/21/24 11:40 Results Reviewed Results Reviewed: Laboratory Last Values Urine pH (Auto) 5.5 01/21/24 11:24 Specific [place] (Auto) 1.030 01/21/24 11:24 Urine Protein (Auto) 15 mg/dL 01/21/24 11:24 Glucose (UA)(Auto) 0 mg/dL 01/21/24 11:24 Urine Ketones (Auto) Negative 01/21/24 11:24 Urine Blood (Auto) 10 Adrian/uL 01/21/24 11:24 Urine Nitrite (Auto) Negative 01/21/24 11:24 Urine Bilirubin (Auto) 0 mg/dL 01/21/24 11:24 Urine Urobilinogen (Auto) 0.2 mg/dL 01/21/24 11:24 Leukocyte Esterase (Auto) 0 Noemi/uL 01/21/24 11:24 Assessment & Plan Assessment & Plan (1) Gross hematuria: Code(s): R31.0 - Gross hematuria Category: Medical (2) Urinary frequency: Code(s): R35.0 - Frequency of micturition Category: Medical Plan Reassurance provided Follow-up UA office Orders: Orders Prostate Specific Antigen 01/14/24 N40.0 - Benign prostatic hyperplasia without lower urinary tract symptoms AMB Urinalysis Automated 01/21/24 Z13.9 - Encounter for screening, unspecified AMB Cystoscopy 01/21/24 R31.0 - Gross hematuria Patient Instructions: Imaging studies, laboratory and physical exam results were discussed and reviewed in detail. No major barriers to patient understanding were identified. An opportunity to ask questions regarding the treatment plan was provided. All questions were answered. The patient expressed understanding and agreement with the above treatment plan. The patient is aware they should contact our office by phone for worsening of their current condition or the appearance of new urologic symptoms. Compliance is encouraged with any medications and followup testing that is ordered. It is a privilege to participate in the urologic care of your patient. If you have any questions or concerns regarding treatment for the above conditions, or other urologic issues, please do not hesitate to contact me. The office telephone contact is [phone]. This note is constructed using voice recognition software. While every effort has been made to ensure accuracy metalizing supervisor errors may have been included. Yours sincerely, Dr Danny Parra MD, [facility] - Urology Providers of Expert, Compassionate Care for the Genitourinary System Coding Level of Care Code Est Pt Level 3 (90765) Diagnoses Gross hematuria R31.0 Urinary frequency R35.0 CPT Codes Cystoscopy - CPT: 27424-[id number] ([id number])
== END 2024-01-21 12:18 | disposition home or self-care (01) ==
LOC: HO.HUSH 10:55
PROVIDERS: PCP Nurse Practitioner Family; Visit Provider Urology
DX: R31.0 Gross hematuria (principal); Z13.9 Encounter for screening, unspecified
CPT/HCPCS: 52000

== ENCOUNTER → 2024-01-21 10:54 | Outpatient (BNVA) | payer OTHER, SELFPAY | PROVIDERS: PCP Nurse Practitioner Family; Visit Provider Urology | DX: R31.0 Gross hematuria (principal); N40.1 Benign prostatic hyperplasia with lower urinary tract symptoms; R35.0 Frequency of micturition; Z87.891 Personal history of nicotine dependence | CPT/HCPCS: 52000; 81003 ==

== ENCOUNTER → 2024-04-15 09:22 | Outpatient (REF) | payer OTHER, SELFPAY | LOC: HO.SL 09:22 | PROVIDERS: PCP Nurse Practitioner Family; Visit Provider Internal Medicine | DX: Z13.89 Encounter for screening for other disorder (principal) ==

== ENCOUNTER → 2024-04-23 14:56 | Outpatient (REF) | payer OTHER, SELFPAY ==
--- OUTSIDE RECORDS SUMMARY | 2024-04-23 18:51 | XMS_ITS | Encounter Summary ---
Author Organization [employer] Address [address] [place] [address] Care Team Providers Care Expense Analyst Name Role Phone Denisse Jimenez MD Primary Care Provider + Encounter Details Date Type Department Care Team (Latest Contact Info) Description 04/16/2024 Travel Social History Tobacco Use Types Packs/Day Years Used Date Smoking Tobacco: Former Cigarettes 2 12 2008 Passive Smoke Exposure: Past Smokeless Tobacco: Never Comments:Quit [id number] Alcohol Use Standard Drinks/Week Comments Yes 12 (1 standard drink = 0.6 oz pu re alcohol) on weekends Depression Answer Date Recorded Patient Health Questionnaire-9 Score 0 12/09/2023 Patient Health Questionnaire-9 Score 0 12/09/2023 Last PHQ-9: Questionnaire Data Not on file 0 12/09/2023 Housing Stability Answer Date Recorded What is your housing situation today? I have victoria cast 11/19/[address] you li ve. Do you have problems with any of the following? None of the above 11/19/2023 Food Insecurity Answer Date Recorded Within the past 12 months, y ou worried that your food would run out before you got money to buy more: Never True 11/19/2023 Within the past 12 months,th e food you bought just didn't last and you didn't have enough money to get more: Never True Transportation Answer Date Recorded In the past 12 months, has l ack of transportation kept you from medical appts, meetings, work or from getting things needed for daily living? No 11/19/2023 Utilities Answer Date Recorded In the past 12 months, has t he electric, gas, oil or water company threatened to shut off services in your home? No 11/19/2023 Depression Answer Date Recorded Patient Health Questionnaire-2 Score 0 12/09/2023 Internet Access Answer Date Recorded Internet Access Q1 Yes 11/25/2023 Internet Access Q2 Not on file 11/25/2023 Sex and Gender Information Value Date Recorded Sex Assigned at Male 01/22/2022 10:18 AM EDT Legal Sex Male 10:18 AM EDT Gender Identity Male 03/30/2022 11:36 AM EST Sexual Orientation Straight 01/22/2022 10 :18 AM EDT documented as of this encounter Plan of Treatment Upcoming Encounters Date Type Department Care Team (Late st Contact Info) Description 06/03/2024 9:[address] EDT [address] [facility] [address] [place] [address] Denisse Jimenez MD [address] [place] [address] documented as of this encounter Visit Diagnoses Not on filedocumented in this encounter Additional Health Concerns Assessment Noted Time PHQ-9 Depression Total Score: 0 12/09/19 24 10:49 AM EDT documented as of this encounter Care Teams Expense Analyst Relationship Specialty Start Date End Date Denisse Jimenez MD [address] [place] [phone] PCP - General Internal Medicine 10/18/23 documented as of this encounter
--- OUTSIDE RECORDS SUMMARY | 2024-04-23 18:51 | XMS_ITS | Encounter Summary ---
Author Organization [employer] Address [address] [facility] [address] [place] [address] Care Team Providers Care Supervisor Pipeline Maintenance Name Role Phone Denisse Jimenez MD Primary Care Provider + Reason for Visit * Reason Comments Blood Pressure Check Encounter Details Date Type Department Care Team (Latest Contact Info) Description 04/16/2024 1:30 PM EST Clinical Support [facility] [address] [place], [place] [phone] Karolyn Ricketts, RN [address] [place], [place] [phone] Primary hypertension [I10] Social History Tobacco Use Types Packs/Day Years Used Date Smoking Tobacco: Former Cigarettes 2 12 - 2008 Passive Smoke Exposure: Past Smokeless Tobacco: Never Comments:Quit [id number] Alcohol Use Standard Drinks/Week Comments Yes 12 [...] AM EDT documented as of this encounter Last Filed Vital Signs Vital Sign Reading Time Taken Comments Blood Pressure 135/91 04/16/2024 1:57 PM EST Pulse 74 04/16/2024 1:57 PM EST Temperature - - Respiratory Rate 18 04/16/2024 1:57 PM EST Oxygen Saturation 99% 04/16/2024 1:57 PM EST Inhaled Oxygen Concentration - - Weight - - Height - - Body Mass Index - - documented in this encounter Progress Notes * Karolyn Ricketts RN - 04/16/2024 1:30 PM EST S: Pt here for BP check nurse visit. At last appointment in [facility], pt's BP noted to be 170/96 and 160/92 on repeat and at last PCP appointment on 02/03/24 it was 152/95. Recommendations in the [facility] wereto continue current medication and RTC in 2 weeks for RN BP check. Pt is currently taking amLODIPine-benazepril (Lotrel) 5-10 MG capsule daily. Today, pt denies any blurred vision, shortness of breath, chest pain, dizziness, or headaches. Pt reports compliance with BP medication regimen, confirms that BP medications were taken today around 7am. Patient denies smoking. O: Left Arm BP 135/91, Pulse 74, RR 18/min and SpO2 99%. Heart tones regular, lungs clear bilaterally, no edema noted, skin warm pink and dry. A: Compliance with BP medication regimen BP at goal of <140/90 Reinforcement of Lifestyle modification including low sodium diet and exercise. P: Consulted with provider regarding BP findings. Orders at this time are to continue current medication regimen and start checking BP at home at least three times a week for monitoring. Pt advised to continue taking meds as directed and follow a low fat/sodium diet and exercise as tolerated. Pt tof/u with PCP as needed. Pt agrees with plan and verbalized understanding. Karolyn Ricketts RN documented in this encounter Plan of Treatment Upcoming Encounters Date Type Department Care Team (Late st Contact Info) Description 06/03/2024 9:15 AM EDT Office Visit [facility] [address] [place], [place] [phone] Denisse Jimenez MD [address] [place] [address] documented as of this encounter Visit Diagnoses Diagnosis Primary hypertension [I10] Unspecified essential hypertension documented in this encounter Additional Health Concerns Assessment Noted Time PHQ-9 Depression Total Score: 0 12/09/19 24 10:49 AM EDT documented as of this encounter Care Teams Supervisor Pipeline Maintenance Relationship Specialty Start Date End Date Denisse Jimenez MD [address] [place] [address] PCP - General Internal Medicine 10/18/23 documented as of this encounter
--- OUTSIDE RECORDS SUMMARY | 2024-04-23 18:51 | XMS_ITS | Encounter Summary ---
Author Organization [employer] Address [address] [place] [address] Care Team Providers Care Custodian Supervisor Name Role Phone Denisse Jimenez MD Primary Care Provider + Reason for Visit * Reason Comments Sinusitis Encounter Details Date Type Department Care Team ([facility] st Contact Info) Description 04/02/2024 8:40 AM EST Office Visit [facility] [address] [place], [place] [phone] Chrissie Abrams DO [address] [place], [place] [phone] Acute non-recurrent maxillary sinusitis (Primary Dx); Essential hypertension Social History Tobacco Use Types Packs/Day Years Used Date Smoking Tobacco: Former Cigarettes 2 12 - 2008 Passive Smoke Exposure: Past Smokeless Tobacco: Never Comments:Quit [id number] Alcohol Use Standard Drinks/Week Comments Yes 12 (1 standard drink = 0.6 oz pu re alcohol) on weekends Depression Answer Date Recorded Patient Health Questionnaire-9 Score 0 12/09/2023 Patient Health Questionnaire-9 Score 0 12/09/2023 Last PHQ-9: Questionnaire Data Not on file 0 12/09/2023 Housing Stability Answer Date Recorded What is your housing situation today? I have victoriamary cast 11/19/[address] you [...] Sign Reading Time Taken Comments Blood Pressure 160/92 04/02/2024 9:18 AM EST reported to cherrie toure has 01/01 rt ear pain Pulse 66 04/02/2024 8:43 AM EST Temperature 36.4 ??C (97.5 ??F) 04/02/2024 8 :43 AM EST Respiratory Rate 17 04/02/2024 8:43 AM EST Oxygen Saturation 99% 04/02/2024 8:4 3 AM EST Inhaled Oxygen Concentration - - Weight 77.9 kg (171 lb 12.8 oz) 04/02/2024 8:43 AM EST Height - - Body Mass Index 26.12 02/03/2024 3:33 PM EST documented in this encounter Progress Notes * Chrissie Abrams, DO - 04/02/2024 8:40 AM EST SUBJECTIVE iNels Villavicencio is a 58 y.o. male who presents for Sick Visit. He comes to [place] c/o sinus infection. He says he is very congested and feels a lot of sinus pressure/pain, mostly on the R side. He says that the pain radiates to the R ear. He says his sx are worse atnight. He says that he started with a cold and had fevers and chills with congestion/rhinorrhea but for the last 3 days he's had worsening sinus pain and congestion. He tried dayquil and nyquil with no relief. He says he took his BP meds this morning. 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 Negative for activity change, appetite change and unexpected weight change. HENT: Positive for congestion, ear pain, postnasal drip, sinus pressure and sinus pain. Negative for rhinorrhea and sneezing. Respiratory: Negative for cough, chest tightness and shortness of breath. Cardiovascular: Negative for chest pain and palpitations. Gastrointestinal: Negative for abdominal pain, diarrhea, nausea and vomiting. Neurological: Negative for dizziness, weakness and headaches. Patient Active Problem List Diagnosis Gross hematuria Injury of left knee Sprain of anterior talofibular ligament of left ankle Primary hypertension Diverticulitis Hydrocele Fatty liver Hyperlipidemia LDL goal <100 IFG (impaired fasting glucose) Apnea No Known Allergies OBJECTIVE Vitals: 04/02/24 0843 04/02/24 0917 04/02/24 0918 BP: (!) 152/95 (!) 170/96 (!) 160/92 BP Location: Right arm Left arm Right arm Patient Position: Sitting Sitting Sitting BP Cuff Size: Adult Adult Adult Pulse: 66 Resp: 17 Temp: 97.5 ??F (36.4 ??C) TempSrc: Oral SpO2: 99% Weight: 171 lb 12.8 oz (77.9 kg) Physical Exam Constitutional: General: He is not in acute distress. Appearance: Normal appearance. HENT: Right Ear: Tympanic membrane, ear canal and external ear normal. Left Ear: Tympanic membrane, ear canal and external ear normal. Nose: Congestion present. No rhinorrhea. Right Turbinates: Not swollen. Left Turbinates: Not swollen. Right Sinus: Maxillary sinus tenderness and frontal sinus tenderness present. Left Sinus: No maxillary sinus tenderness or frontal sinus tenderness. Mouth/Throat: Pharynx: Posterior oropharyngeal erythema present. No oropharyngeal exudate. Eyes: Extraocular Movements: Extraocular movements intact. Conjunctiva/sclera: Conjunctivae normal. Pupils: Pupils are equal, round, and reactive to light. Cardiovascular: Rate and Rhythm: Normal rate and regular rhythm. Heart sounds: Normal heart sounds. No murmur heard. Pulmonary: Effort: Pulmonary effort is normal. Breath sounds: Normal breath sounds. No wheezing or rhonchi. Musculoskeletal: Cervical back: Neck supple. No tenderness. Lymphadenopathy: Cervical: No cervical adenopathy. Neurological: General: No focal deficit present. Mental Status: He is alert and oriented to person, place, and time. Cranial Nerves: No cranial nerve deficit. Motor: No weakness. Gait: Gait normal. Psychiatric: Mood and Affect: Mood normal. Assessment/Plan Diagnoses and all orders for this visit: Acute non-recurrent maxillary sinusitis -treat with augmentin BID x 7 days -trial claritin and flonase daily -encouraged frequent nasal saline -encouraged tylenol/motrin prn -advised contact [facility] if sx do not resolve Essential hypertension BP elevated likely 2/2 pain, aymptomatic -cont current med regimen -BP check with team RN in 2 weeks -advised go to ED if severe VALLEJO, CP or vision changes, he agrees with plans --Follow-up with PCP as scheduled or sooner prn-- Current Outpatient Medications: amLODIPine (Norvasc) 10 MG tablet, Take 1 tablet (10 mg) by mouth Once per day., Disp: 30 tablet, Rfl: 3 amLODIPine-benazepril (Lotrel) 5-10 MG capsule, Take 1 capsule by mouth Once per day., Disp: 30 capsule, Rfl: 11 amoxicillin-clavulanate (Augmentin) 875-125 MG tablet, Take 1 tablet by mouth 2 times daily for 7 days., Disp: 14 tablet, Rfl: 0 atorvastatin (Lipitor) 40 MG tablet, Take 1 tablet (40 mg) by mouth at bedtime., Disp: 30 tablet, Rfl: 11 Blood Pressure Monitoring (Blood Pressure Cuff) [facility], Use daily as prescribed, Disp: 1 each, Rfl: 0 fluticasone (Flonase) 50 MCG/ACT nasal spray, Administer 2 sprays into each nostril Once per day. Shake gently. Before first use, prime pump. After use, clean tip and replace cap., Disp: 16 g, Rfl: 3 loratadine (Claritin) 10 MG tablet, Take 1 tablet (10 mg) by mouth Once per day., Disp: 30 tablet, Rfl: 3 sodium chloride (Tira Nasal [place]) 0.65 % nasal spray, Administer 2 sprays into each nostril if needed for congestion., Disp: 30 mL, Rfl: 11 Scribe Attestation: Frankie Fernandez, am serving as a scribe to document services personally performed by Chrissie Rojas, based on the patient's response to questions by provider and provider's statements to me. 04/02/24 10:50 AM Physicians Attestation: Chrissie Fernandez DO, have reviewed the information by the scribe, Frankie Messer, for accuracy and agree with its content. documented in this encounter Plan of Treatment Upcoming Encounters Date Type Department Care Team (Late st Contact Info) Description 06/03/2024 9:15 AM EDT Office Visit [facility] [address] [place] [phone] Denises Jimenez MD [address] [place] [address] documented as of this encounter Procedures Procedure Name Priority Date/Time Associated Diagnosis Comments POCT INFLUENZA B (ID NOW RAPID MOLECULAR) Routine 04/02/2024 8:56 AM EST Acute non-recurrent maxillary sinusitis POCT INFLUENZA A (ID NOW RAPID MOLECULAR) Routine 04/02/2024 8:56 AM EST Acute non-recurrent maxillary sinusitis POCT RAPID COVID ANTIGEN Routine 04/02/2024 8:56 AM EST Acute non-recurrent maxillary sinusitis documented in this encounter Results * Influenza B (ID NOW Rapid Molecular) (04/02/2024 8:56 AM EST) Influenza B Negative Negative, Indeterminate [facility] Swab 04/02/2024 8:56 AM EST us Chrissie Jose Alberto DO POINT OF CARE TEST ENTER/JOSE LUIS T ORDERABLES Final Result Performing Organization Address [facility] Co de Phone Number [facility] [address] [place] [phone] * Influenza A (ID NOW Rapid Molecular) (04/02/2024 8:56 AM EST) Influenza A Negative Negative, Indeterminate [facility] Swab 04/02/2024 8:56 AM EST Chrissie Abrams DO POINT OF CARE TEST ENTER/JOSE LUIS T ORDERABLES Final Result Performing Organization Address [facility] Co de Phone Number [facility] [address] [place] [phone] * POCT Rapid COVID Ag (04/02/2024 8:56 AM EST) Rapid COVID Ag Negative [facility] Swab 04/02/2024 8:56 AM EST Chrissie Jose Alberto DO POINT OF CARE TEST ENTER/JOSE LUIS T ORDERABLES Final Result Performing Organization Address [facility] de Phone Number [facility] [address] [place] [phone] documented in this encounter Visit Diagnoses Diagnosis Acute non-recurrent maxillary sinusitis- Primary Essential hypertension Unspecified essential hypertension documented in this encounter Additional Health Concerns Assessment Noted Time PHQ-9 Depression Total Score: 0 12/09/19 24 10:49 AM EDT documented as of this encounter Care Teams Custodian Supervisor Relationship Specialty Start Date End Date Denisse Jimenez MD [address] [place] [phone] PCP - General Internal Medicine 10/18/23 documented as of this encounter
--- OUTSIDE RECORDS SUMMARY | 2024-04-23 18:51 | XMS_ITS | Encounter Summary ---
Author Organization [employer] Address [address] [facility] [address] [place] [address] Care Team Providers Care Costumed Character Name Role Phone Denisse Jimenez MD Primary Care Provider + Reason for Visit * Reason Onset Date Comments May recall 03/27/2024 Encounter Details Date Type Department Care Team ([facility] st Contact Info) Description 03/27/2024 Telephone [facility] [address] [place], [place] [phone] Denisse Jimenez MD [address] [place], [place] [phone] May recall Social History Tobacco Use Types Packs/Day Years Used Date Smoking Tobacco: Former Cigarettes 2 12 - 2008 Passive Smoke Exposure: Past Smokeless Tobacco: Never Comments:Quit [id number] Alcohol Use Standard Drinks/Week Comments Yes 12 [...] AM EDT documented as of this encounter Miscellaneous Notes * Telephone Encounter - Myrna Grier MA - 03/27/2024 10:36 AM EST Tc to pt to schedule fu IFG/bp/susan recall appt. Appt has been scheduled for 06/03/24 at 9:15 am. documented in this encounter Plan of Treatment Upcoming Encounters Date Type Department Care Team (Late st Contact Info) Description 06/03/2024 9:15 AM EDT Office Visit [facility] [address] [place] [address] Denisse Jimenez MD [address] [place] [phone] documented as of this encounter Visit Diagnoses Not on filedocumented in this encounter Additional Health Concerns Assessment Noted Time PHQ-9 Depression Total Score: 0 12/09/19 10:49 AM EDT documented as of this encounter Care Teams Costumed Character Relationship Specialty Start Date End Date Denisse Jimenez MD [address] [place] [phone] PCP - General Internal Medicine 10/18/23 documented as of this encounter
--- OUTSIDE RECORDS SUMMARY | 2024-04-23 18:51 | XMS_ITS | Clinical Summary ---
Author Organization [employer] Address [address] [facility] 7[address] [place] [address] Care Team Providers Care Certified Neurodiagnostic Technologist Name Role Phone Denisse Jimenez MD Primary Care Provider + Allergies No known active allergies Medications Blood Pressure Monitoring (Blood Pressure Cuff) misc Use daily as prescribed 1 each 4 Active amLODIPine (Norvasc) 10 MG tabletIndication s:Primary hypertension Take 1 tablet (10 mg) by mouth Once per day. 30 tablet 3 4 12/09/19 25 Active atorvastatin (Lipitor) 40 MG tablet Take 1 tablet (40 mg) by mouth at bedtime. 30 tablet 11 4 01/14/20 25 Active amLODIPine-benaz epril (Lotrel) 5-10 MG capsule Take 1 capsule by mouth Once per day. 30 capsule 11 4 02/03/20 25 Active loratadine (Claritin) 10 MG tablet Take 1 tablet (10 mg) by mouth Once per day. 30 tablet 3 5 04/02/19 26 Active fluticasone (Flonase) 50 MCG/ACT nasal spray Administer 2 sprays into each nostril Once per day. Shake gently. Before first use, prime pump. After use, clean tip and replace cap. 16 g 3 5 04/02/19 26 Active sodium chloride ([place] Nasal [place]) 0.65 % nasal spray Administer 2 sprays into each nostril if needed for congestion. 30 mL 11 5 04/02/19 26 Active amoxicillin-clav ulanate (Augmentin) 875-125 MG tablet Take 1 tablet by mouth 2 times daily for 7 days. 14 tablet 5 04/09/19 25 Active Problems Problem Noted Date Diagnosed Date IFG (impaired fasting glucose) 02/03/2024 Assessment & Plan (02/03/2024 4:20 PM EST): New onset I have discussed with patient regarding increasing physicial activity and decrease calorie intake, hand out with dietary/life style modifications given today. No need to check fgstk at home yet FU with me in 6m Agreed to influenza IZ Apnea 02/03/2024 Assessment & Plan (02/03/2024 4:17 PM EST): Witnessed episodes by partner during sleep, ro NANDINI Order sleep study and will do titration if needed. FU w me in 4m Hydrocele 12/09/2023 Fatty liver 12/09/2023 Assessment & Plan (12/09/2023 11:48 AM EDT): - counseled to cut down on alcohol intake, discussed about AUD program - gave pt information about diet modifications, decreased weight and increased exercise - check hepatitis profile and f/u LFTs in 2-3 months Hyperlipidemia LDL goal <100 12/09/2023 Assessment & Plan (02/03/2024 4:20 PM EST): Uncontrolled, tolerates Lipitor well Check LFTs in 3m Continue low fat diet and increase physical activity. Assessment & Plan (12/09/2023 11:49 AM EDT): We discussed re rx options. Recommended moderate amount of exercise and increase consumption of fruit, vegetables, fish and high fiber foods. Should decrease consumption of highly saturated fats or trans fats. Gave pt informaton about low fat diet, f/u lipids in 2-3 months Diverticulitis 12/06/2023 Gross hematuria 10/18/2023 Assessment & Plan (02/03/2024 3:38 PM EST): CT Urogram on 09/2023 was Normal. Seen [place] [facility] [place] Assessment & Plan (12/09/2023 11:40 AM EDT): - resolved, pt has upcoming urology appointment next month Assessment & Plan (10/18/2023 5:13 PM EDT): Possible MANDI , referral to urology Injury of left knee 10/18/2023 Assessment & Plan (12/09/2023 11:41 AM EDT): - take Tylenol PRN - information about orthopedics appointment provided to the pt Assessment & Plan (10/18/2023 5:13 PM EDT): Referral to ortho suspect meniscal injury Sprain of anterior talofibular ligament of left ankle 10/18/2023 Assessment & Plan (10/18/2023 5:13 PM EDT): Dispensed aircast from [facility]. X-ray ordered, Note given for work, activity as tolerated Primary hypertension 10/18/2023 Assessment & Plan (02/03/2024 4:18 PM EST): Uncontrolled, will switch to amlodipine/benazepril 5/10 and fu with me in Counseled re low salt diet/increase moderate physical activity. Check home BP BIW and prn CP/VALLEJO/MERCADO Non smoking patient. Assessment & Plan (12/09/2023 11:46 AM EDT): Uncontrolled Increase Amlodipine to 10 mg and f/u with me in 6-8 weeks Counseled re low salt diet/increase moderate physical activity. Check home BP BIW and prn CP/VALLEJO/MERCADO Non smoking patient. Assessment & Plan (10/18/2023 5:13 PM EDT): Start amlodipine 5 mg, call for any side effects Encounters Date Type Department Care Team Description 04/16/2024 1:30 PM EST Clinical Support [facility] [address] [place] [phone] Karolyn Ricketts, STACEY Primary hypertension [I10] 04/16/2024 Travel 04/02/2024 8:40 AM EST Office Visit [facility] [address] [place] [address] Chrissie Abrams DO Acute non-recurrent maxillary sinusitis (Primary Dx); Essential hypertension 03/27/2024 Telephone [facility] [address] [place] [phone] Denisse Jimenez MD May recall 02/25/2024 Telephone [facility] [address] [place] [address] [phone] Denisse Jimenez MD 02/18/[address] [phone] Denisse Jimenez MD Nurse Triage 02/03/2024 3:30 PM EST Office Visit [address] [phone] Denisse Jimenez MD Primary hypertension (Primary Dx); Hyperlipidemia LDL goal <100; IFG (impaired fasting glucose); Apnea; Encounter for immunization 02/03/2024 Travel 01/24/2024 Patient Outreach [facility] [address] [place] [phone] Denisse Jimenez MD Pre-visit Planning (SDOH screening completed on 11/19/2023) from Last 3 Months Immunizations Name Administration Dates Next Due Influenza, IIV3, injectable 12/09/2013 Influenza, Split (incl. purified surface antigen ) 11/19/2011 Influenza, seasonal, injectable, preservative fr ee 02/03/2024,12/09/2023 Pneumococcal Polysaccharide PPSV23 11/29/2013 Social History Tobacco Use Types Packs/Day Years Used Date Smoking Tobacco: Former Cigarettes 2 12 1 997 - 2009 Passive Smoke Exposure: Past Smokeless Tobacco: Never Tobacco Cessation:Counseling Given: Yes Comments:Quit [id number] Alcohol Use Standard Drinks/Week Comments Yes 12 [...] Orientation Straight 01/22/2022 10 :18 AM EDT Last Filed Vital Signs Vital Sign Reading Time Taken Comments Blood Pressure 135/91 04/16/2024 1:57 PM EST Pulse 74 04/16/2024 1:57 PM EST Temperature 36.4 ??C (97.5 ??F) 04/02/2024 8:43 AM ES T Respiratory Rate 18 04/16/2024 1:57 PM EST Oxygen Saturation 99% 04/16/2024 1:57 PM EST Inhaled Oxygen Concentration - - Weight 77.9 kg (171 lb 12.8 oz) 04/02/2024 8:43 AM EST Height 172.7 cm (5' 8 ) 02/03/2024 3:33 PM EST Body Mass Index 26.12 02/03/2024 3:33 PM EST Plan of Treatment Upcoming Encounters Date Type Department Care Team (Late st Contact Info) Description 06/03/2024 9:15 AM EDT Office Visit [facility] [address] [place] [phone] Denisse Jimenez MD [address] [place] [address] Health Maintenance Due Date Last Done Comments CT Colonography 1966 Colonoscopy 1966 Colorectal Cancer Screening 1966 FIT DNA/Cologuard 1966 FIT 1966 FOBT 1966 Sigmoidoscopy 1966 Alcohol/Substance Use Screening 1978 DTaP/Tdap/Td Vaccines (1 - Tdap) 1985 Hepatitis A Vaccines (1 of 2 - Risk 2-dose series) 1985 Hepatitis B Vaccines (1 of 3 - 19+ 3-dose series) 1985 Pneumococcal Vaccine: 50+ Years (2 of 2 - PCV) 2016 11/29/2013 Zoster Vaccines (1 of 2) 2016 Dental Oral Exam 09/28/2022 03/30/2022 Dental Prophylaxis 09/28/2022 03/30/2022 Dental X-Ray: Bitewings 03/31/2023 03/30/2022 COVID-19 Vaccine ( season) 2023 05/29/2021, 08/16/2020, 07/19/2020 SDOH Screening 11/18/2024 11/19/2023 Depression Screening 12/08/2024 12/09/2023, 12/09/19 24 Diabetes: Hemoglobin A1C 01/13/2025 01/14/2024 Dental X-Ray: Full Mouth 03/31/2025 03/30/2022 Tobacco Screening 04/02/2025 04/02/2024 Lipid Panel 01/13/2029 01/14/2024, 10/21/2023 RSV Patients and Patients Aged 60 years or older (1 - 1-dose 75+ series) 2041 Pneumococcal Vaccine: Pediatrics (0 to 5 Years) and At-Risk Patients (6 to 49) Years) Aged Out 11/29/2013 No longer eligible based on patient's age to complete this topic HIV Screening Completed 01/14/2024 Hepatitis C Screening Completed 01/14/2024 Influenza Vaccine Completed 02/03/2024, , 12/09/2013, Additional history exists HIB Vaccines Aged Out No longer eligi ble based on patient's age to complete this topic HPV Vaccines Aged Out No longer eligi ble based on patient's age to complete this topic IPV Vaccines Aged Out No longer eligi ble based on patient's age to complete this topic Meningococcal Vaccine Aged Out No katya yue eligible based on patient's age to complete this topic RSV under 20 months Aged Out No longe r eligible based on patient's age to complete this topic Rotavirus Vaccines Aged Out No longer eligible based on patient's age to complete this topic Procedures Procedure Name Priority Date/Time Associated Diagnosis Comments POCT INFLUENZA B (ID NOW RAPID MOLECULAR) Routine 04/02/2024 8:56 AM EST Acute non-recurrent maxillary sinusitis POCT INFLUENZA A (ID NOW RAPID MOLECULAR) Routine 04/02/2024 8:56 AM EST Acute non-recurrent maxillary sinusitis POCT RAPID COVID ANTIGEN Routine 04/02/2024 8:56 AM EST Acute non-recurrent maxillary sinusitis POCT GLUCOSE Routine 02/03/2024 3:54 PM EST IFG (impaired fasting glucose) HEPATITIS PANEL, GENERAL Routine 01/14/2024 8:36 AM EDT Fatty liver HIV 1/2 ANTIGEN/ANTIBODY, FOURTH GENERATION W/RFL Routine 01/14/2024 8:36 AM EDT Fatty liver HEMOGLOBIN A1C Routine 01/14/2024 8:36 AM EDT Primary hypertension LIPID PANEL WITH REFLEX TO DIRECT LDL Routine 01/14/2024 8:36 AM EDT Primary hypertension PROPHYLAXIS - ADULT Routine 03/30/2022 2 :00 PM EST Periodontal disease DIAGNOSTIC - DIAGNOSTIC IMAGING - INTRAORAL - COMPREHENSIVE SERIES OF RADIOGRAPHIC IMAGES Routine 03/30/2022 2:00 PM EST Periodontal disease COMPREHENSIVE ORAL EVALUATION - NEW OR ESTABLISHED PATIENT Routine 03/30/2022 2:00 PM EST Periodontal disease from Last 3 Months or Most Recently Relevant to Health Maintenance Results * Influenza B (ID NOW Rapid Molecular) (04/02/2024 8:56 AM EST) Pathologist [facility] Influenza B Negative Negative, Indeterminate [facility] Swab 04/02/2024 8:56 AM EST Chrissie Abrams DO POINT OF CARE TEST ENTER/JOSE LUIS T ORDERABLES Final Result Performing Organization Address [facility] Co de Phone Number [facility] [address] [place] [phone] * Influenza A (ID NOW Rapid Molecular) (04/02/2024 8:56 AM EST) [facility] Influenza A Negative Negative, Indeterminate [facility] Swab 04/02/2024 8:56 AM EST Chrissie Abrams DO POINT OF CARE TEST ENTER/JOSE LUIS T ORDERABLES Final Result Performing Organization Address [facility] Co de Phone Number [facility] [address] [place] [phone] * POCT Rapid COVID Ag (04/02/2024 8:56 AM EST) Pathologist [facility] Rapid COVID Ag Negative [facility] Swab 04/02/2024 8:56 AM EST Chrissie Abrams DO POINT OF CARE TEST ENTER/JOSE LUIS T ORDERABLES Final Result Performing Organization Address [facility] Co de Phone Number [facility] [address] [place] [phone] * POCT Glucose (02/03/2024 3:54 PM EST) [facility] Glucose Blood, POC 177 60 - 200 mg/dL QC Media Lot # [id number] Lot# Expiration Date Blood Capillary blood specimen / Unknown 02/03/2024 3:54 PM EST us Denisse Jimenez MD POINT OF CARE TEST ENTER /EDIT ORDERABLES Final Result * (ABNORMAL) Lipid Panel with Reflex to Direct LDL (01/14/2024 8:36 AM EDT) Triglycerides 141 <150 mg/dL [facility] Comment:Desirable Triglyceri de: less than 150 mg/dLBorderline High Triglyceride 150-199 mg/dLHigh Triglyceride: 200-499 mg/dLVery High Triglyceride: greater than or equal to 5OO mg/dL Cholesterol 224(H) <200 mg/dL [facility] Comment:Desirable Cholestero l: less than 200 mg/dLBorderline High Cholesterol: 200-239 mg/dLHigh Cholesterol: greater than 239 mg/dL LDL Cholesterol Calculated 153(H) <100 mg/dL [facility] Comment:Desirable LDL: less than 100 mg/dLNear Optimal/Above Optimal LDL: 110- 129 mg/dLBorderline High LDL: 130-159 mg/dLHigh LDL: 160-189 mg/dLVery High LDL: greater than or equal to 190 mg/dL HDL Cholesterol 43 >40 mg/dL [facility] Comment:Desirable HDL: great er than 40 mg/dL Note: This HDL assay may give artificially low results in patients with liver disease. Blood 01/14/2024 8:36 AM EDT 01/14/2024 8:37 AM EDT us Denisse Jimenez MD LAB BLOOD ORDERABLES Fin al Result [facility] [address] [place] [phone] * Hepatitis Panel, General (01/14/2024 8:36 AM EDT) Hepatitis A IgM Nonreactive Nonreactive [facility] Comment:IgM antibodies to VALLEJO V not detected; does not exclude earlyacute or recovered HAV infection. ~Hepatitis B Surface Antibody REACTIVE Nonreactive [facility] Comment:REACTIVE: > 11.99 mI U/mL Hepatitis B Core Antibody Nonreactive Nonreactive [facility] Hepatitis C Antibody Nonreactive Nonreactive [facility] Comment:Antibodies to HCV no t detected; does not exclude early acuteHCV infection. Hepatitis B Surface Ag Negative Negative [facility] Blood 01/14/2024 8:36 AM EDT 01/14/2024 8:37 AM EDT us Denisse Jimenez MD LAB BLOOD ORDERABLES Fin al Result Performing Organization Address City/[facility]/ZIP Co de Phone Number [facility] [address] [place] [address] [phone] * HIV-1/2 Antigen and Antibodies, Fourth Generation, with Reflexes (01/14/2024 8:36 AM EDT) [facility] HIV AB/AG Nonreactive Nonreactive [facility] Comment:HIV-1 p24 Ag and/or HIV-1/HIV-2 Ab not detected.A test result that is nonreactive does not exclude thepossibility of exposure to or infection with HIV-1 and/orHIV-2. Nonreactive results in this assay for individualswith prior exposure to HIV-1 and/or HIV-2 may be due toantigen and antibody levels that are below the limit ofdetection of this assay.The [employer] HIV Ag/Ab Combo assay result andsupplemental assay results should be interpreted inconjunction with the patient's clinical presentation,history and other laboratory results. If the results areinconsistent with clinical evidence, additional testing issuggested to confirm the result. Blood Venous blood specimen / Unknown 01/14/2024 8:36 AM EDT 01/14/2024 8:37 AM EDT us Denisse Jimenez MD LAB BLOOD ORDERABLES Fin al Result Performing Organization Address City/[facility]/ZIP Co de Phone Number [facility] [address] [place] [address] [phone] * (ABNORMAL) Hemoglobin A1c (01/14/2024 8:36 AM EDT) Hemoglobin A1c 6.2(H) <6.0 % [facility] Comment:Hemoglobin A1C Refer ence Range Adults: 4.8 - 6.0 % Non diabetic: < 6.0 % Goal: < 7.0 %Additional Action Suggested: > 8.0 %Note: Hemoglobin A1c results are invalid for patients with abnormal amounts of HbF. Blood transfusions may impact the HbA1c concentration in the patient sample. Estimated Average Glucose 131 mg/dL [facility] Comment:eAG = Estimated ave rage glucose which is %A1C expressed asaverage glucose, using the formula of the [id number] Glucose study (ADAG), Diabetes Care, Vol.31,#8,2007 Blood Venous blood specimen / Unknown 01/14/2024 8:36 AM EDT 01/14/2024 8:37 AM EDT Denisse Jimenez MD LAB BLOOD ORDERABLES Fin al Result [facility] [address] [place] [address] [phone] from Last 3 Months or Most Recently Relevant to Health Maintenance Insurance [address] [address] [place] Care Teams Certified Neurodiagnostic Technologist Relationship Specialty Start Date End Date Denisse Jimenez MD [address] [place] [phone] PCP - General Internal Medicine 10/18/23
== END ==
LOC: HO.SL 14:56
PROVIDERS: PCP Nurse Practitioner Family; Visit Provider Internal Medicine
DX: Z13.89 Encounter for screening for other disorder (principal)

== ENCOUNTER 2024-05-27 08:02 | Outpatient (REF) | payer OTHER, SELFPAY ==
--- OUTSIDE RECORDS SUMMARY | 2024-05-27 08:13 | XMS_ITS | Clinical Summary ---
Author Organization [employer] Address [address] [facility] [address] [place] [address] Care Team Providers Care Warehouse Production Worker Name Role Phone Denisse Jimenez MD Primary Care Provider + Allergies No known active allergies Medications Blood Pressure Monitoring (Blood Pressure Cuff) misc Use daily as prescribed 1 each 4 Active amLODIPine (Norvasc) 10 MG tabletIndications :Primary hypertension Take 1 tablet (10 mg) by mouth Once per day. 30 tablet 3 4 12/09/19 25 Active atorvastatin (Lipitor) 40 MG tablet Take 1 tablet (40 mg) by mouth at bedtime. 30 tablet 11 4 01/14/20 25 Active amLODIPine-benaze pril (Lotrel) 5-10 MG capsule Take 1 capsule [...] 3 5 04/02/19 26 Active sodium chloride ([place] Nasal [place]) 0.65 % nasal spray Administer 2 sprays into each nostril if needed for congestion. 30 mL 11 5 04/02/19 26 Active Active Problems Problem Noted Date Diagnosed Date [...] Urogram on 09/2023 was Normal. Seen by [facility] Assessment & Plan (12/09/2023 11:40 AM [...] (10/18/2023 5:13 PM EDT): Dispensed aircast from [employer]. X-ray ordered, Note given for work, activity [...] Description 04/16/2024 1:30 PM EST Clinical Support [facility] [address] [place] [phone] Karolyn Ricketts RN Primary hypertension [I10] 04/16/2024 Travel 04/02/2024 8:40 AM EST Office Visit [facility] [address] [place] [phone] Chrissie Abrams DO Acute non-recurrent maxillary sinusitis (Primary Dx); Essential hypertension 03/27/2024 Telephone [facility] [address] [place] [phone] Denisse Jimenez MD May recall from Last 3 Months Immunizations Name Administration Dates Next Due Influenza, IIV3, injectable 12/09/2013 Influenza, Split (incl. purified surface antigen ) 11/19/2011 Influenza, seasonal, injectable, preservative fr ee 02/03/2024,12/09/2023 Pneumococcal Polysaccharide PPSV23 11/29/2013 Social History Tobacco Use Types Packs/Day Years Used Date Smoking Tobacco: Former Cigarettes 2 12 1 7 - 2008 Passive Smoke Exposure: Past Smokeless Tobacco: Never Tobacco Cessation:Counseling Given: Yes Comments:Quit [id number] Alcohol Use Standard Drinks/Week Comments Yes 12 [...] Description 06/03/2024 9:15 AM EDT Office Visit [facility] [address] [place] [address] Denisse Jimenez MD [address] [place] [address] Health Maintenance Due Date Last Done Comments [...] older (1 - 1-dose 75+ series) 2041 HIV Screening Completed 01/14/2024 Hepatitis C Screening [...] 8:56 AM EST Acute non-recurrent maxillary sinusitis HEPATITIS PANEL, GENERAL Routine 01/14/2024 8:36 AM EDT Fatty liver HIV 1/2 ANTIGEN/ANTIBODY, FOURTH GENERATION W/RFL Routine 01/14/2024 8:36 AM EDT Fatty liver HEMOGLOBIN A1C Routine 01/14/2024 8:36 AM EDT Primary hypertension LIPID PANEL WITH REFLEX TO DIRECT LDL Routine 01/14/2024 8:36 AM EDT Primary hypertension PROPHYLAXIS - ADULT Routine 03/30/2022 2 :00 PM EST Periodontal disease INTRAORAL - COMPLETE SERIES OF RADIOGRAPHIC IMAGES Routine 03/30/2022 2:00 PM EST Periodontal disease COMPREHENSIVE ORAL EVALUATION - NEW OR ESTABLISHED PATIENT Routine 03/30/2022 2:00 PM EST Periodontal disease from Last 3 Months or Most Recently Relevant to Health Maintenance Results * Influenza B (ID NOW Rapid Molecular) (04/02/2024 8:56 AM EST) [facility] Influenza B Negative Negative, Indeterminate [facility] Swab 04/02/2024 8:56 AM EST Chrissie Abrams DO POINT OF CARE TEST ENTER/JOSE LUIS T ORDERABLES Final Result Performing Organization Address [facility]/ZIP Co de Phone Number [facility] [address] [place] [phone] * Influenza A (ID NOW Rapid Molecular) (04/02/2024 8:56 AM EST) [facility] Influenza A Negative Negative, Indeterminate [facility] Swab 04/02/2024 8:56 AM EST Chrissie Promocoeduardo DO POINT OF CARE TEST ENTER/JOSE LUIS T ORDERABLES Final Result Performing Organization Address [facility] Co de Phone Number [facility] [address] [place] [phone] * POCT Rapid COVID Ag (04/02/2024 8:56 AM EST) Pathologist [facility] Rapid COVID Ag Negative [facility] Swab 04/02/2024 8:56 AM EST us Chrissie Abrams DO POINT OF CARE TEST ENTER/JOSE LUIS T ORDERABLES Final Result Performing Organization Address [facility] Co de Phone Number [facility] [address] [place] [address] [phone] * (ABNORMAL) Lipid Panel with Reflex to Direct LDL (01/14/2024 8:36 AM EDT) Triglycerides 141 <150 mg/dL [facility] Comment:Desirable Triglyceri de: less than 150 mg/dLBorderline High Triglyceride 150-199 mg/dLHigh Triglyceride: 200-499 mg/dLVery High Triglyceride: greater than or equal to 5OO mg/dL Cholesterol 224(H) <200 mg/dL [facility] Comment:Desirable Cholestero l: less than 200 mg/dLBorderline High Cholesterol: 200-239 mg/dLHigh Cholesterol: greater than 239 mg/dL LDL Cholesterol Calculated 153(H) <100 mg/dL [facility] Comment:Desirable LDL: less than 100 mg/dLNear Optimal/Above Optimal LDL: 110- 129 mg/dLBorderline High LDL: 130-159 mg/dLHigh LDL: 160-189 mg/dLVery High LDL: greater than or equal to 190 mg/dL HDL Cholesterol 43 >40 mg/dL [facility] Comment:Desirable HDL: great er than 40 mg/dL Note: This HDL assay may give artificially low results in patients with liver disease. Blood 01/14/2024 8:36 AM EDT 01/14/2024 8:37 AM EDT us Denisse Jimenez MD LAB BLOOD ORDERABLES Fin al Result Performing Organization Address [facility] Co de Phone Number [facility] [address] [place] [phone] * Hepatitis Panel, General (01/14/2024 8:36 AM EDT) Hepatitis A IgM Nonreactive Nonreactive [facility] Comment:IgM antibodies to VALLEJO V not detected; does not exclude earlyacute or recovered HAV infection. ~Hepatitis B Surface Antibody REACTIVE Nonreactive [facility] Comment:REACTIVE: > 11.99 mI U/mL Hepatitis B Core Antibody Nonreactive Nonreactive [facility] Hepatitis C Antibody Nonreactive Nonreactive [facility] Comment:Antibodies to HCV no t detected; does not exclude early acuteHCV infection. Hepatitis B Surface Ag Negative Negative [facility] Blood 01/14/2024 8:36 AM EDT 01/14/2024 8:37 AM EDT us Denisse Jimenez MD LAB BLOOD ORDERABLES Fin al Result Performing Organization Address [facility] Co de Phone Number [facility] [address] [place] [phone] * HIV-1/2 Antigen and Antibodies, Fourth Generation, with Reflexes (01/14/2024 8:36 AM EDT) [facility] HIV AB/AG Nonreactive Nonreactive [facility] Comment:HIV-1 p24 Ag and/or HIV-1/HIV-2 Ab not detected.A test result that is nonreactive does not exclude thepossibility of exposure to or infection with HIV-1 and/orHIV-2. Nonreactive results in this assay for individualswith prior exposure to HIV-1 and/or HIV-2 may be due toantigen and antibody levels that are below the limit ofdetection of this assay.The [employer] HIV Ag/Ab Combo assay result andsupplemental assay results should be interpreted inconjunction with the patient's clinical presentation,history and other laboratory results. If the results areinconsistent with clinical evidence, additional testing issuggested to confirm the result. Blood Venous blood specimen / Unknown 01/14/2024 8:36 AM EDT 01/14/2024 8:37 AM EDT us Denisse Jimenez MD LAB BLOOD ORDERABLES Fin al Result [facility] [address] [place] [phone] * (ABNORMAL) Hemoglobin A1c (01/14/2024 8:36 AM EDT) Hemoglobin A1c 6.2(H) <6.0 % [facility] Comment:Hemoglobin A1C Refer ence Range Adults: 4.8 - 6.0 % Non diabetic: < 6.0 % Goal: < 7.0 %Additional Action Suggested: > 8.0 %Note: Hemoglobin A1c results are invalid for patients with abnormal amounts of HbF. Blood transfusions may impact the HbA1c concentration in the patient sample. Estimated Average Glucose 131 mg/dL [facility] Comment:eAG = Estimated ave rage glucose which is %A1C expressed asaverage glucose, using the formula of the [id number] Glucose study (ADAG), Diabetes Care, Vol.31,#8,2007 Blood Venous blood specimen / Unknown 01/14/2024 8:36 AM EDT 01/14/2024 8:37 AM EDT us Denisse Jimenez MD LAB BLOOD ORDERABLES Fin al Result [facility] [address] [place] [phone] from Last 3 Months or Most Recently Relevant to Health Maintenance Insurance [facility] [place] [facility] [facility] [place] AD[place] Care Teams Warehouse Production Worker Relationship Specialty Start Date End Date Denisse Jimenez MD [address] [place] [phone] PCP - General Internal Medicine 10/18/23
[2024-05-27 12:12] LABS: Gamma Glutamyl Transpeptidase 39 U/L (11-51)
[2024-05-27 13:16] LABS: HBS Num1 > 1000.00 mIU/mL (0-7.99); HBsAGNum1 0.36 S/CO (0.00-0.99); Hepatitis A Antibody IgM 0.15 Index (0-0.79); Hepatitis B Core Antibody Nonreactive (Nonreactive); Hepatitis B Surface Antigen Negative (Negative); ~HepC Num1 0.12 S/CO (0.00-0.79); ~Hepatitis A Antibody IgM Nonreactive (Nonreactive); ~Hepatitis B Surface Antibody REACTIVE (Nonreactive); ~Hepatitis C Antibody Nonreactive (Nonreactive)
== END 2024-05-27 08:03 | disposition home or self-care (01) ==
LOC: HO.HHCL 08:02
PROVIDERS: Visit Provider Internal Medicine
DX: E78.5 Hyperlipidemia, unspecified (principal)
CPT/HCPCS: 36415; 82977; 86704; 86706; 86709; 86803; 87340

== ENCOUNTER 2024-06-03 09:58 | Outpatient (REF) | payer OTHER, SELFPAY ==
--- OUTSIDE RECORDS SUMMARY | 2024-06-03 11:19 | XMS_ITS | Encounter Summary ---
Author Organization [employer] Address [address] [facility] [address] [place] [address] Care Team Providers Care Clamp Truck Driver Name Role Phone Denisse Jimenez MD Primary Care Provider + Reason for Visit * Reason Comments Pre-visit Planning SDOH negative, Tobac co screening negative. Encounter Details Date Type Department Care Team ([facility] st Contact Info) Description 05/27/2024 Patient Outreach [facility] [address] [place], [place] [phone] Denisse Jimenez MD [address] [place] [phone] Pre-visit Planning (SDOH negative, Tobacco screening negative. ) Social History Tobacco Use Types Packs/Day Years Used Date Smoking Tobacco: Former Cigarettes 2 12 - 2008 Passive Smoke Exposure: Past Smokeless Tobacco: Never Comments:Quit [id number] Alcohol Use Standard Drinks/Week Comments Yes 12 [...] AM EDT documented as of this encounter Progress Notes * Iris Yo - 05/27/2024 1:48 PM EST RANDELL Russo placed successful outbound call to patient for pre-visit planning. Patient name and confirmed. Patient confirms appt date and time, and has transportation arrangements. Biggest concern for appointment at this time is patient constantly feels dizzy. Patient states after having the catheters it has affected his sexual activity and when urinating. Appropriate screenings completed in anticipation of appointment. documented in this encounter Plan of Treatment Upcoming Encounters Date Type Department Care Team (Late st Contact Info) Description 08/31/2024 4:00 PM EDT Office Visit [facility] [address] [place] [address] Denisse Jimenez MD [address] [place] [address] documented as of this encounter Visit Diagnoses Not on filedocumented in this encounter Additional Health Concerns Assessment Noted Time PHQ-9 Depression Total Score: 0 12/09/19 24 10:49 AM EDT documented as of this encounter Care Teams Clamp Truck Driver Relationship Specialty Start Date End Date Denisse Jimenez MD [address] [place] [phone] PCP - General Internal Medicine 10/18/23 documented as of this encounter
--- OUTSIDE RECORDS SUMMARY | 2024-06-03 11:19 | XMS_ITS | Clinical Summary ---
Author Organization [employer] Address [address] [facility] 7t [place] [address] Care Team Providers Care Public Health Staff Nurse Name Role Phone Denisse Jimenez MD Primary Care Provider + Allergies No known active allergies Medications Blood Pressure Monitoring (Blood Pressure Cuff) misc Use daily as prescribed 1 each 4 Active atorvastatin (Lipitor) 40 MG tablet Take 1 tablet (40 mg) by mouth at bedtime. 30 tablet 11 4 025 Active amLODIPine-benaz epril (Lotrel) 5-10 MG capsule Take 1 capsule by mouth Once per day. 30 capsule 11 4 025 Active loratadine (Claritin) 10 MG tablet Take 1 tablet (10 mg) by mouth Once per day. 30 tablet 3 5 026 Active fluticasone (Flonase) 50 MCG/ACT nasal spray Administer 2 sprays into each nostril Once per day. Shake gently. Before first use, prime pump. After use, clean tip and replace cap. 16 g 5 026 Active sodium chloride ([place] Nasal [place]) 0.65 % nasal spray Administer 2 sprays into each nostril if needed for congestion. 30 mL 5 026 Active amLODIPine (Norvasc) 10 MG tabletIndication s:Primary hypertension Take 1 tablet (10 mg) by mouth Once per day. 30 tablet 3 4 025 Discontin ued(Dose adjustmen t) norelgestromin-e thinyl estradiol (Xulane) 150-35 MCG/24HR Apply 1 patch each week for 3 weeks, then remove for 1 week. 3 patch 6 5 025 Discontin ued(Enter ed in error) Active Problems Problem Noted Date Diagnosed Date Lower urinary tract symptoms (LUTS) 06/03/2024 Assessment & Plan (06/03/2024 10:54 AM EDT): Post micturition dribbling could be related either to UTI versus BPH. Order labs and treat accordingly, otherwise follow-up in 6 weeks Erectile dysfunction 06/03/2024 Assessment & Plan (06/03/2024 10:53 AM EDT): It could be related to new onset IFG versus prostate or testosterone issues. Check labs including UA and rule out STIs Advise to completely quit alcohol use. Follow-up in 6 weeks IFG (impaired fasting glucose) 02/03/2024 Assessment & Plan (06/03/2024 10:53 AM EDT): Last A1c was at goal I have discussed with patient regarding increasing physicial activity and decrease calorie intake Check A1c q6-12m FU in 6m Assessment & Plan (02/03/2024 4:20 PM EST): [...] 12/09/2023 Fatty liver 12/09/2023 Assessment & Plan (06/03/2024 10:25 AM EDT): - GGT is within normal limits. - Counseled to avoid alcohol intake, he is cut down significantly, he is not interested on AUD program - gave pt information about diet modifications, decreased weight and increased exercise - check hepatitis profile and f/u LFTs in 2-3 months Assessment & Plan (12/09/2023 11:48 AM EDT): [...] on 09/2023 was Normal. [place] [facility] [place] Assessment & Plan (12/09/2023 11:40 AM [...] (10/18/2023 5:13 PM EDT): Dispensed aircast from [employer]. X-ray ordered, Note given for work, activity [...] Encounters Date Type Department Care Team Description 06/03/2024 9:15 AM EDT Office Visit [facility] MEDICINE [address] [place] [phone] Denisse Jimenez MD Fatty liver (Primary Dx); Lower urinary tract symptoms (LUTS); IFG (impaired fasting glucose); Erectile dysfunction, unspecified erectile dysfunction type 06/03/2024 Telephone [facility] MEDICINE [address] [place] [phone] Denisse Jimenez MD Results 06/03/2024 Travel 06/01/2024 Telephone [facility] MEDICINE [address] [place] [phone] Denisse Jimenez MD Chart prep 05/27/2024 Patient Outreach [facility] MED & PEDS [address] [place], [place] [phone] Denisse Jimenez MD Pre-visit Planning (SDOH negative, Tobacco screening negative. ) 04/16/2024 1:30 PM EST Clinical Support [address] [address] Karolyn Ricketts RN Primary hypertension [I10] 04/16/2024 Travel 04/02/2024 8:40 AM EST Office Visit [facility] WALK-[facility] [address] [place] [address] Chrissie Abrams DO Acute non-recurrent maxillary sinusitis (Primary Dx); Essential hypertension 03/27/2024 Telephone [facility] MEDICINE [address] [place] [address] Denisse Jimenez MD May recall from Last [...] Past Smokeless Tobacco: Never Tobacco Cessation:Counseling Given: Not Answered Comments:Quit [id number] Alcohol Use Standard Drinks/Week Comments Yes 12 [...] Sign Reading Time Taken Comments Blood Pressure 114/73 06/03/2024 9:25 AM EDT Pulse 87 06/03/2024 9:25 AM EDT Temperature 35.7 ??C (96.2 ??F) 06/03/2024 9:25 AM ED T Respiratory Rate 24 06/03/2024 9:25 AM EDT Oxygen Saturation 100% 06/03/2024 9:25 AM EDT Inhaled Oxygen Concentration - - Weight 79.8 kg (176 lb) 06/03/2024 9:25 AM EDT Height 172.7 cm (5' 8 ) 06/03/2024 9:25 AM EDT Body Mass Index 26.76 06/03/2024 9:25 AM EDT Plan of Treatment Upcoming Encounters Date Type Department Care Team (Late st Contact Info) Description 08/31/2024 4:00 PM EDT Office Visit [facility] MEDICINE [address] [place] [address] Denisse Jimenez MD [address] [place] [address] Health Maintenance Due Date Last Done Comments [...] Vaccine ( season) 2023 05/29/2021, 08/16/2020, 07/19/2020 Depression Screening 12/08/2024 12/09/2023, 12/09/19 24 Diabetes: Hemoglobin A1C 01/13/2025 01/14/2024 Dental X-Ray: Full Mouth 03/31/2025 03/30/2022 SDOH Screening 05/27/2025 05/27/2024 Tobacco Screening 06/03/2025 06/03/2024 Lipid Panel 01/13/2029 01/14/2024, 10/21/2023 RSV Patients and Patients Aged 60 years or older (1 - 1-dose 75+ series) 2041 HIV Screening Completed 01/14/2024 Influenza Vaccine Completed 02/03/2024, , 12/09/2013, Additional history exists Hepatitis C Screening Completed 05/27/2024, 024 HIB Vaccines Aged Out No longer eligi [...] Procedure Name Priority Date/Time Associated Diagnosis Comments GGT Routine 05/27/2024 8:04 AM EST Hyperlipidemia LDL goal <100 HEPATITIS PANEL, GENERAL Routine 05/27/2024 8:04 AM EST Hyperlipidemia LDL goal <100 POCT INFLUENZA B (ID NOW RAPID MOLECULAR) Routine 04/02/2024 8:56 AM EST Acute non-recurrent maxillary sinusitis POCT INFLUENZA A (ID NOW RAPID MOLECULAR) Routine 04/02/2024 8:56 AM EST Acute non-recurrent maxillary sinusitis POCT RAPID COVID ANTIGEN Routine 04/02/2024 8:56 AM EST Acute non-recurrent maxillary sinusitis HIV 1/2 ANTIGEN/ANTIBODY, FOURTH GENERATION W/RFL Routine [...] Recently Relevant to Health Maintenance Results * Hepatitis Panel, General (05/27/2024 8:04 AM EST) Hepatitis A IgM Nonreactive Nonreactive [facility] Comment:IgM antibodies to VALLEJO V not detected; does not exclude earlyacute or recovered HAV infection. ~Hepatitis B Surface Antibody REACTIVE Nonreactive [facility] Comment:REACTIVE: > 11.99 mI U/mL Hepatitis B Core Antibody Nonreactive Nonreactive [facility] Hepatitis C Antibody Nonreactive Nonreactive [facility] Comment:Antibodies to HCV no t detected; does not exclude early acuteHCV infection. Hepatitis B Surface Ag Negative Negative [facility] Blood 05/27/2024 8:04 AM EST 05/27/2024 11:43 AM EST us Denisse Jimenez MD LAB BLOOD ORDERABLES Fin al Result [facility] [address] [place] [phone] * Gamma Glutamyl Transferase (GGT) (05/27/2024 8:04 AM EST) [facility] Gamma Glutamyl Transpeptidase 39 11 - 51 U/L [facility] Blood Venous blood specimen / Unknown 05/27/2024 8:04 AM EST 05/27/2024 11:30 AM EST us Denisse Jimenez MD LAB BLOOD ORDERABLES Fin al Result Performing Organization Address [facility]/ZIP Co de Phone Number [facility] [address] [place] [phone] * Influenza B (ID NOW Rapid Molecular) (04/02/2024 8:56 AM EST) [facility] Influenza B Negative Negative, Indeterminate [facility] Swab 04/02/2024 8:56 AM EST us Chrissie Abrams DO POINT OF CARE TEST ENTER/JOSE LUIS T ORDERABLES Final Result Performing Organization Address [facility] Co de Phone Number [facility] [address] [place] [phone] * Influenza A (ID NOW Rapid Molecular) (04/02/2024 8:56 AM EST) [facility] Influenza A Negative Negative, Indeterminate [facility] Swab 04/02/2024 8:56 AM EST us Chrissie Abrams DO POINT OF CARE TEST ENTER/JOSE LUIS T ORDERABLES Final Result Performing Organization Address [facility] Co de Phone Number [facility] [address] [place] [phone] * POCT Rapid COVID Ag (04/02/2024 8:56 AM EST) Rapid COVID Ag Negative [facility] Swab 04/02/2024 8:56 AM EST us Chrissie Abrams DO POINT OF CARE TEST ENTER/JOSE LUIS T ORDERABLES Final Result Performing Organization Address [facility] Co de Phone Number [facility] [address] [place] [phone] * (ABNORMAL) Lipid Panel with Reflex to Direct LDL (01/14/2024 8:36 AM EDT) Triglycerides 141 <150 mg/dL [facility] Comment:Desirable Triglyceri de: less than 150 mg/dLBorderline High Triglyceride 150-199 mg/dLHigh Triglyceride: 200-499 mg/dLVery High Triglyceride: greater than or equal to 5OO mg/dL Cholesterol 224(H) <200 mg/dL [facility] Comment:Desirable Cholestero l: less than 200 mg/dLBorderline High Cholesterol: 200-239 mg/dLHigh Cholesterol: greater than 239 mg/dL LDL Cholesterol Calculated 153(H) <100 mg/dL [facility] Comment:Desirable LDL: less than 100 mg/dLNear Optimal/Above Optimal LDL: 110- 129 mg/dLBorderline High LDL: 130-159 mg/dLHigh LDL: 160-189 mg/dLVery High LDL: greater than or equal to 190 mg/dL HDL Cholesterol 43 >40 mg/dL [facility] Comment:Desirable HDL: great er than 40 mg/dL Note: This HDL assay may give artificially low results in patients with liver disease. Blood 01/14/2024 8:36 AM EDT 01/14/2024 8:37 AM EDT us Denisse Jimenez MD LAB BLOOD ORDERABLES Fin al Result Performing Organization Address [facility]/ZIP Co de Phone Number [facility] [address] [place] [phone] * HIV-1/2 Antigen and Antibodies, Fourth Generation, with Reflexes (01/14/2024 8:36 AM EDT) HIV AB/AG Nonreactive Nonreactive [facility] Comment:HIV-1 p24 Ag and/or HIV-1/HIV-2 Ab not detected.A test result that is nonreactive does not exclude thepossibility of exposure to or infection with HIV-1 and/orHIV-2. Nonreactive results in this assay for individualswith prior exposure to HIV-1 and/or HIV-2 may be due toantigen and antibody levels that are below the limit ofdetection of this assay.The [employer] HIV Ag/Ab Combo assay result andsupplemental assay results should be interpreted inconjunction with the patient's clinical presentation,history and other laboratory results. If the results areinconsistent with clinical evidence, additional testing issuggested to confirm the result. Blood Venous blood specimen / Unknown 01/14/2024 8:36 AM EDT 01/14/2024 8:37 AM EDT Denisse Jimenez MD LAB BLOOD ORDERABLES Fin al Result [facility] [address] [place] [phone] * (ABNORMAL) Hemoglobin A1c (01/14/2024 8:36 AM EDT) Hemoglobin A1c 6.2(H) <6.0 % [facility] Comment:Hemoglobin A1C Refer ence Range Adults: 4.8 - 6.0 % Non diabetic: < 6.0 % Goal: < 7.0 %Additional Action Suggested: > 8.0 %Note: Hemoglobin A1c results are invalid for patients with abnormal amounts of HbF. Blood transfusions may impact the HbA1c concentration in the patient sample. Estimated Average Glucose 131 mg/dL [facility] Comment:eAG = Estimated ave rage glucose which is %A1C expressed asaverage glucose, using the formula of the [id number] Glucose study (ADAG), Diabetes Care, Vol.31,#8,Oct. 2007 Blood Venous blood specimen / Unknown 01/14/2024 8:36 AM EDT 01/14/2024 8:37 AM EDT Denisse Jimenez MD LAB BLOOD ORDERABLES Fin al Result [facility] [address] [place] [phone] from Last 3 Months or Most Recently Relevant to Health Maintenance Insurance [facility] MEDICAID STAND ADULT Care Teams Public Health Staff Nurse Relationship Specialty Start Date End Date Denisse Jimenez MD [address] [place] [phone] PCP - General Internal Medicine 10/18/23
--- OUTSIDE RECORDS SUMMARY | 2024-06-03 11:19 | XMS_ITS | Encounter Summary ---
Author Organization [employer] Address [address] [facility] [address] [place] [address] Care Team Providers Care Steam Generating Powerplant Mechanic Name Role Phone Denisse Jimenez MD Primary Care Provider + Encounter Details Date Type Department Care Team (Latest Contact Info) Description 06/03/2024 Travel Social History Tobacco Use Types Packs/Day Years Used Date Smoking Tobacco: Former Cigarettes 2 12 - 2008 Passive Smoke Exposure: Past Smokeless Tobacco: Never Comments:Quit [id number] Alcohol Use Standard Drinks/Week Comments Yes 12 [...] Description 08/31/2024 4:00 PM EDT Office Visit [facility] MEDICINE [address] [place] [address] Denisse Jimenez MD [address] [place] [address] documented as of this encounter Visit Diagnoses Not on filedocumented in this encounter Additional Health Concerns Assessment Noted Time PHQ-9 Depression Total Score: 0 12/09/19 24 10:49 AM EDT documented as of this encounter Care Teams Steam Generating Powerplant Mechanic Relationship Specialty Start Date End Date Denisse Jimenez MD [address] [place] [phone] PCP - General Internal Medicine 10/18/23 documented as of this encounter
--- OUTSIDE RECORDS SUMMARY | 2024-06-03 11:19 | XMS_ITS | Encounter Summary ---
Author Organization [employer] Address [address] [facility] 7t [place] [address] Care Team Providers Care Surface Ship Usw Supervisor Name Role Phone Denisse Jimenez MD Primary Care Provider + Reason for Visit * Reason Comments Follow-up Encounter Details Date Type Department Care Team ([facility] st Contact Info) Description 06/03/2024 9:15 AM EDT Office Visit [facility] MEDIC[facility] [address] [place], [place] [phone] Denisse Jimenez MD [address] [place], [place] [phone] Fatty liver (Primary Dx); Lower urinary tract symptoms (LUTS); IFG (impaired fasting glucose); Erectile dysfunction, unspecified erectile dysfunction type Social History Tobacco Use Types Packs/Day Years Used Date Smoking Tobacco: Former Cigarettes 2 12 - 2008 Passive Smoke Exposure: Past Smokeless Tobacco: Never Tobacco Cessation:Counseling Given: Not Answered Comments:Quit [id number] Alcohol Use Standard Drinks/Week Comments Yes 12 [...] Mass Index 26.76 06/03/2024 9:25 AM EDT documented in this encounter Miscellaneous Notes * Assessment & Plan Note - Denisse Jimenez MD - 06/03/2024 10:54 AM EDT Associated Problem(s): Lower urinary tract symptoms (LUTS) Post micturition dribbling could be related either to UTI versus BPH. Order labs and treat accordingly, otherwise follow-up in 6 weeks * Assessment & Plan Note - Denisse Jimenez MD - 06/03/2024 10:53 AM EDT Associated Problem(s): Erectile dysfunction It could be related to new onset IFG versus prostate or testosterone issues. Check labs including UA and rule out STIs Advise to completely quit alcohol use. Follow-up in 6 weeks * Assessment & Plan Note - Denisse Jimenez MD - 06/03/2024 10:53 AM EDT Associated Problem(s): IFG (impaired fasting glucose) Last A1c was at goal I have discussed with patient regarding increasing physicial activity and decrease calorie intake Check A1c q6-12m FU in 6m * Assessment & Plan Note - Denisse Jimenez MD - 06/03/2024 10:25 AM EDT Associated Problem(s): Fatty liver - GGT is within normal limits. - Counseled to avoid alcohol intake, he is cut down significantly, he is not interested on AUD program - gave pt information about diet modifications, decreased weight and increased exercise - check hepatitis profile and f/u LFTs in 2-3 months documented in this encounter Plan of Treatment Upcoming Encounters Date Type Department Care Team (Late st Contact Info) Description 08/31/2024 4:00 PM EDT Office Visit [facility] MEDICINE [address] [place] [address] Denisse Jimenez MD [address] [place] [address] Scheduled Orders Name Type Priority Associated Diagnoses Orde r Schedule Testosterone, Free (Dialysis) And Total, MS Lab Routine Erectile dysfunction, unspecified erectile dysfunction type Expected: 06/03/2024 (Approximate), Expires: 06/03/2025 PSA, Total With Reflex to PSA, Free Lab Routine Erectile dysfunction, unspecified erectile dysfunction type Expected: 06/03/2024 (Approximate), Expires: 06/03/2025 TSH with Reflex to Free T4 Lab Routine Erectile dysfunction, unspecified erectile dysfunction type Expected: 06/03/2024 (Approximate), Expires: 06/03/2025 Basic Metabolic Panel Lab Routine Erectile dysfunction, unspecified erectile dysfunction type Expected: 06/03/2024 (Approximate), Expires: 06/03/2025 Hemoglobin A1c Lab Routine Erectile dysfunction, unspecified erectile dysfunction type Expected: 06/03/2024 (Approximate), Expires: 06/03/2025 Chlamydia/N. Gonorrhoeae RNA, TMA, Urogenitial Microbiology Routine Erectile dysfunction, unspecified erectile dysfunction type Ordered: 06/03/2024 Urinalysis, Complete, with Reflex to Culture Lab Routine Erectile dysfunction, unspecified erectile dysfunction type Expected: 06/03/2024 (Approximate), Expires: 06/03/2025 Trichomonas RNA (Urine/Vaginal) Lab Routine Erectile dysfunction, unspecified erectile dysfunction type Ordered: 06/03/2024 documented as of this encounter Visit Diagnoses Diagnosis Fatty liver- Primary Other chronic nonalcoholic liver disease Lower urinary tract symptoms (LUTS) IFG (impaired fasting glucose) Erectile dysfunction, unspecified erectile dysfunction type documented in this encounter Additional Health Concerns Assessment Noted Time PHQ-9 Depression Total Score: 0 12/09/19 24 10:49 AM EDT documented as of this encounter Care Teams Surface Ship Usw Supervisor Relationship Specialty Start Date End Date Denisse Jimenez MD [address] [place] [phone] PCP - General Internal Medicine 10/18/23 documented as of this encounter
--- OUTSIDE RECORDS SUMMARY | 2024-06-03 11:19 | XMS_ITS | Encounter Summary ---
Author Organization [employer] Address [address] [facility] 7t [place] [address] Care Team Providers Care Hospice Bereavement Coordinator Name Role Phone Denisse Jimenez MD Primary Care Provider + Reason for Visit * Reason Onset Date Comments Results 06/03/2024 Encounter Details Date Type Department Care Team ([facility] Contact Info) Description 06/03/2024 Telephone [facility] MEDICINE [address] [place], [place] [phone] Denisse Jimenez MD [address] [place], [place] [phone] Results Social History Tobacco Use Types Packs/Day Years Used Date Smoking Tobacco: Former Cigarettes 2 12 - 2008 Passive Smoke Exposure: Past Smokeless Tobacco: Never Comments:Quit [id number] Alcohol Use Standard Drinks/Week Comments Yes 12 [...] Telephone Encounter - Myrna Grier MA - 06/03/2024 9:35 AM EDT Tc to [facility] to request sleep study results. Office didn't answer, LVM with callback number. documented in this encounter Plan of Treatment Upcoming Encounters Date Type Department Care Team (Late st Contact Info) Description 08/31/2024 4:00 PM EDT Office Visit [facility] MEDICINE [address] [place] [phone] Denisse Jimenez MD [address] [place] [phone] documented as of this encounter Visit Diagnoses Not on filedocumented in this encounter Additional Health Concerns Assessment Noted Time PHQ-9 Depression Total Score: 0 12/09/19 10:49 AM EDT documented as of this encounter Care Teams Hospice Bereavement Coordinator Relationship Specialty Start Date End Date Denisse Jimenez MD [address] [place] [phone] PCP - General Internal Medicine 10/18/23 documented as of this encounter
--- OUTSIDE RECORDS SUMMARY | 2024-06-03 11:19 | XMS_ITS | Encounter Summary ---
Author Organization [employer] Address [address] [facility] 7t [place] [address] Care Team Providers Care Bilingual Customer Service Specialist Name Role Phone Denisse Jimenez MD Primary Care Provider + Reason for Visit * Reason Onset Date Comments Chart prep 06/01/2024 Encounter Details Date Type Department Care Team ([facility] st Contact Info) Description 06/01/2024 Telephone [facility] MEDICINE [address] [place], [place] [phone] Denisse Jimenez MD [address] [place], [place] [phone] Chart prep Social History Tobacco Use Types Packs/Day Years Used Date Smoking Tobacco: Former Cigarettes 2 12 - 2008 Passive Smoke Exposure: Past Smokeless Tobacco: Never Comments:Quit [id number] Alcohol Use Standard Drinks/Week Comments Yes 12 [...] Telephone Encounter - Myrna Grier MA - 06/01/2024 12:55 PM EDT Chart Prep Labs: done Images: done Vaccines due: yes Referrals: complete Screenings: colonoscopy Overdue care gaps: Up to date documented in this encounter Plan of Treatment Upcoming Encounters Date Type Department Care Team (Late st Contact Info) Description 08/31/2024 4:00 PM EDT Office Visit [facility] MEDICINE [address] [place] [phone] Denisse Jimenez MD [address] [place] [phone] documented as of this encounter Visit Diagnoses Not on filedocumented in this encounter Additional Health Concerns Assessment Noted Time PHQ-9 Depression Total Score: 0 12/09/19 10:49 AM EDT documented as of this encounter Care Teams Bilingual Customer Service Specialist Relationship Specialty Start Date End Date Denisse Jimenez MD [address] [place] [phone] PCP - General Internal Medicine 10/18/23 documented as of this encounter
[2024-06-03 11:32] LABS: Appearance Urine Turbid; Color Urine Dark Yellow; Glucose Urine UA Negative (Negative); Leukocyte Esterase Urine Negative (Negative); Nitrite Urine Negative (Negative); PH 5.5 (5.0-9.0); Specific Gravity - Urine 1.025 (1.005-1.025); UMIC TRIGGER UACC YES; Urine Blood Negative (Negative); Urine Ketones Trace mg/dL (Negative); Urine Protein 30 (1+) mg/dL (Neg-Trace)
[2024-06-03 11:35] LABS: Bacteria Urine None Seen (None Seen); RBC Urine 0-2 /HPF (0-2); WBC Urine 0-5 /HPF (0-5)
[2024-06-03 12:05] LABS: Estimated Average Glucose 128 mg/dL; Hemoglobin A1c % 6.1 % (<6.0)
[2024-06-03 12:41] LABS: Anion Gap 11 (12-20); Blood Urea Nitrogen 12 mg/dL (9-16); Calcium 9.1 mg/dL (8.4-10.2); Carbon Dioxide 21 mmol/L (22-29); Chloride 112 mmol/L (96-108); Estimated Glomerular Filt Rate > 60; Glucose Random 102 mg/dL (60-115); PSA,Total (Free>4and<10) 0.37 ng/mL (0.00-4.00); Potassium 4.4 mmol/L (3.3-5.1); Sodium 140 mmol/L (135-145); TSH reflex Free T4 1.48 uIU/mL (0.32-4.0)
[2024-06-04 21:39] LABS: Trichomonas vaginalis RNA NOT DETECTED (NOT DETECTED)
[2024-06-12 16:39] LABS: Testosterone, Free 46.7 pg/mL (35.0-155.0); Testosterone, Total 396 ng/dL (250-1100)
== END 2024-06-03 09:59 | disposition home or self-care (01) ==
LOC: HO.HHCL 09:58
PROVIDERS: Visit Provider Internal Medicine
DX: N52.9 Male erectile dysfunction, unspecified (principal)
CPT/HCPCS: 80048; 81001; 83036; 84153; 84402; 84403; 84443; 87661

== ENCOUNTER 2024-07-21 15:59 | Outpatient (AMB) | payer OTHER, SELFPAY ==
--- NOTE | 2024-07-21 15:59 | A.OFFVIS_ITS ---
Intake Visit Reasons: 6m/UA Intake Note: Patient presents today for follow up on: hematuria and lab results PSA:0.37 Testosterone: 396; Free Testosterone:46.7 Urology Medications: none Blood Thinner: none Chief Creative Officer Required: No Accompanied by: Self / Same As Patient Allergies No Known Allergies Allergy (Verified 07/21/24 20:53) Medication List - Last Reconciled 07/21/24 by NEGAR Rabago acetaminophen 500 mg PO Q6H PRN amlodipine 10 mg PO DAILY tadalafil (Cialis) 5 mg PO DAILY 90 days HPI Comments Details: Niels is a very pleasant 58-year-old male patient of Dr. French who was accompanied by his significant other at today's office visit. He has a past medical history of diverticulitis and hypertension. He presents to the office today for follow-up of his gross hematuria. Of note, patient was seen approximately six months ago at which time he underwent an office cystoscopy with Dr. Parra for reports of gross hematuria. In office cystoscopy 01/15 was noted to be normal. Previous CT urogram 10/15 noted bilateral kidneys are normal in size, shape, and attenuation. No hydronephrosis, hydroureter, or calculi seen. The bladder is unremarkable. Cytology 12/16 negative for high-grade urothelial carcinoma. He reports no further episodes of gross hematuria. He does have a previous history of nicotine dependence. He discusses having recently followed up with his PCP for in discussing issues with erectile d ysfunction. In review of patient's chart it appears testosterone levels were ordered and performed. These results were reviewed with the patient today. Testosterone: 06/16 396 Free testosterone: 06/16 46.7 PSA: 06/16 0.4 A1c: 06/16 6.1 We discussed at length potential causes of erectile dysfunction as well as further treatment options and risks and benefits of these treatment options. We also discussed correlation of diabetes in erectile dysfunction. He does report noting intermittent episodes of right-sided flank pain however describes these episodes as infrequent. We discussed obtaining imaging as patient does have a history of nephrolithiasis. He otherwise denies urinary urgency, urinary frequency, incontinence, nocturia, hematuria, dysuria, foul smelling urine, changes to urinary stream, fever, and or chills. He is happy with his current voiding parameters. In office urinalysis results reviewed with the patient today no microscopic hematuria noted. He otherwise offers no other issues or concerns at this time. 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 Review of Systems Const All systems reviewed & are unremarkable except as noted in HPI and below Physical Exam Const General: cooperative, healthy appearing, comfortable, no acute distress, well developed, alert and awake Orientation/consciousness: patient oriented x3 Limitations: no limitations HEENT Head: Yes normal to inspection, Yes normocephalic and Yes atraumatic Ears: hearing grossly normal bilaterally Eyes General: appearance normal, both eyes and all related structures Neck Neck: Yes normal visual inspection and Yes trachea midline Chest Chest palpation & inspection: normal inspection of the chest Resp Effort & Inspection: normal respiratory effort and able to speak in complete sentences Cardio Rate: regular rate GI Inspection: Yes normal to inspection General: Yes no CVA tenderness Back/Spine/Pelvis Back: no CVA tenderness Skin General skin exam: no rashes or lesions noted Neuro General: patient oriented x3 Extrem General: Yes normal to inspection Psych Appearance: grossly normal and well kempt Mental Status: mental status grossly normal Speech and movement: Normal speech and movement present and Clear speech present Affect: normal affect Attitude: cooperative Thought process: Normal thought process present Thought content: Normal thought content present Insight: Fair insight present (Psych) Judgement: Fair judgement present (Psych) Results AMB Urinalysis, Automated UA Leukoctes 0 Noemi/uL Last Edit by Carolina Giraldo on 07/21/24 16:13 UA Nitrite Last Edit by Carolina Giraldo on 07/21/24 16:13 UA Urobilinogen 0.2 mg/dL Last Edit by Carolina Giraldo on 07/21/24 16:13 UA Protein 15 mg/dL Last Edit by Carolina Giraldo on 07/21/24 16:13 UA pH 6.0 Last Edit by Carolina Giraldo on 07/21/24 16:13 UA Blood 0 Adrian/uL Last Edit by Carolina Giraldo on 07/21/24 16:13 UA Specific [place] 1.025 Last Edit by Carolina Giraldo on 07/21/24 16:13 UA Ketone Last Edit by Carolina Giraldo on 07/21/24 16:13 UA Bilirubin 0 mg/dL Last Edit by Carolina Giraldo on 07/21/24 16:13 UA Glucose 0 mg/dL Last Edit by Carolina Giraldo on 07/21/24 16:13 Results Reviewed Results Reviewed: Laboratory Last Values Urine pH (Auto) 6.0 07/21/24 16:05 Specific [place] (Auto) 1.025 07/21/24 16:05 Urine Protein (Auto) 15 mg/dL 07/21/24 16:05 Glucose (UA)(Auto) 0 mg/dL 07/21/24 16:05 Urine Blood (Auto) 0 Adrian/uL 07/21/24 16:05 Urine Bilirubin (Auto) 0 mg/dL 07/21/24 16:05 Urine Urobilinogen (Auto) 0.2 mg/dL 07/21/24 16:05 Leukocyte Esterase (Auto) 0 Noemi/uL 07/21/24 16:05 Assessment & Plan Assessment & Plan (1) Flank pain: Code(s): R10.9 - Unspecified abdominal pain Category: Medical (2) Erectile dysfunction: Code(s): N52.9 - Male erectile dysfunction, unspecified Category: Medical Plan In office urinalysis results reviewed with the patient today; as noted above. Will obtain renal ultrasound for further assessment evaluation. Start Cialis as discussed and prescribed. We discussed at length potential causes of ED as well as further treatment options and risks and benefits of these treatment options. Recent testosterone and PSA results reviewed with the patient today; as noted above. We discussed lifestyle modifications to assist with ED as well as overall health and well-being. He denies any bothersome urinary issues. He reports be happy with current voiding parameters. Follow-up in 1-3 months with imaging to be completed prior; or sooner with any issues, concerns, and or questions. Orders: Orders US renal BI Today N20.0 - Calculus of kidney AMB Urinalysis Automated Today Z13.9 - Encounter for screening, unspecified Medications: New tadalafil (Cialis) [id number] [facility] [id number] Member [id number] 5 mg PO DAILY 90 days 90 tabs 0RF Patient Instructions: The patient had an opportunity to ask questions regarding the treatment plan. All questions were answered. Physical exam, labs, and imaging were discussed and reviewed in detail. As well as risks, benefits, and discussion of treatment choices. No major barriers to understanding were identified. The patient expressed understanding and agreement with the above treatment plan. The patient was made aware they should contact our office by phone for worsening of their current condition, the appearance of new symptoms, or with any questions or concerns. Compliance is encouraged with any medications and follow up testing that is ordered. It is a privilege to be allowed the opportunity to participate in? your urological care.? Again, if you have any questions or concerns If you have any questions or concerns please do not hesitate to contact me. The office is [phone]. This note is constructed using voice recognition software. While every effort has been made to ensure accuracy medical transcription radiology errors may have been included. Yours sincerely, NEGAR Rabago Coding Level of Care Code Est Pt Level 4 (08569) Diagnoses Flank pain R10.9 Erectile dysfunction N52.9
== END 2024-07-21 16:29 | disposition home or self-care (01) ==
LOC: HO.HUSH 16:00
PROVIDERS: PCP Nurse Practitioner Family; Visit Provider Nurse Practitioner Family
DX: R10.9 Unspecified abdominal pain (principal); N52.9 Male erectile dysfunction, unspecified; Z13.9 Encounter for screening, unspecified
CPT/HCPCS: 99214

== ENCOUNTER → 2024-07-21 15:59 | Outpatient (BNVA) | payer OTHER, SELFPAY | PROVIDERS: PCP Nurse Practitioner Family; Visit Provider Nurse Practitioner Family | DX: N52.9 Male erectile dysfunction, unspecified (principal); R10.9 Unspecified abdominal pain; N20.0 Calculus of kidney | CPT/HCPCS: 81003; 99212 ==

== ENCOUNTER 2024-09-01 08:03 | Outpatient (REF) | payer OTHER, SELFPAY ==
--- OUTSIDE RECORDS SUMMARY | 2024-09-01 08:10 | XMS_ITS | Encounter Summary ---
Author Organization [facility] Address [address] 7t [place] [address] Care Team Providers Care Manager Enterprise Name Role Phone Denisse Jimenez MD Primary Care Provider + Encounter Details Date Type Department Care Team (Latest Contact Info) Description 08/31/2024 Travel Social History Tobacco Use Types Packs/Day Years Used Date Smoking Tobacco: Former Cigarettes 2 12 2008 Passive Smoke Exposure: Past Smokeless Tobacco: Never Comments:Quit [phone] Alcohol Use Standard Drinks/Week Comments Yes 12 [...] Care Team (Late st Contact Info) Description 09/03/2024 12:15 PM EDT Office Visit [facility] [address] [place] [address] Denisse Jimenez MD [address] [place] [address] documented as of this encounter Visit Diagnoses Not on filedocumented in this encounter Additional Health Concerns Assessment Noted Time PHQ-9 Depression Total Score: 0 12/09/19 24 10:49 AM EDT documented as of this encounter Care Teams Manager Enterprise Relationship Specialty Start Date End Date Denisse Jimenez MD [address] [place] [id number] PCP - General Internal Medicine 10/18/23 documented as of this encounter
[2024-09-01 11:50] LABS: Alanine Aminotransferase 22 U/L (0-40); Albumin Level 4.2 g/dL (3.5-5.0); Alkaline Phosphatase 70 U/L (39-117); Anion Gap 7 (12-20); Aspartate Amino Transferase 27 U/L (5-37); Bilirubin Total 0.7 mg/dL (0.0-1.0); Blood Urea Nitrogen 16 mg/dL (9-16); Carbon Dioxide 23 mmol/L (22-29); Chloride 114 mmol/L (96-108); Cholesterol 150 mg/dL (<200); Estimated Glomerular Filt Rate > 60; Glucose Random 117 mg/dL (60-115); HDL Cholesterol 39 mg/dL (>40); LDL Cholesterol Calculated 88 mg/dL (<100); Potassium 4.1 mmol/L (3.3-5.1); Sodium 140 mmol/L (135-145); Total Protein 6.9 g/dL (6.5-8.0); Triglycerides 117 mg/dL (<150)
[2024-09-01 13:15] LABS: Reflex LDLD? No
== END 2024-09-01 08:04 | disposition home or self-care (01) ==
LOC: HO.HHCL 08:03
PROVIDERS: Visit Provider Internal Medicine
DX: I10 Essential (primary) hypertension (principal)
CPT/HCPCS: 36415; 80053; 80061

== ENCOUNTER 2024-09-28 14:55 | Outpatient (REF) | payer OTHER, SELFPAY ==
--- NOTE | ~2024-09-28 | US_ITS ---
EXAMINATION: US KIDNEY BILATERAL HISTORY: N20.0 - Calculus of kidney TECHNIQUE: Real-time grayscale ultrasound imaging of the kidneys was performed and images were reviewed. COMPARISON: Correlation is made with a CT of the abdomen without contrast dated 10/05/2023. FINDINGS: Right kidney: The right kidney measures 10.0 x 5.8 x 5.3 cm. Renal parenchymal echotexture and thickness are normal. There are no masses. There is no hydronephrosis or renal calculi. Left Kidney: The left kidney measures 10.0 x 6.7 x 5.8 cm. Renal parenchymal echotexture and thickness are normal. There are no masses. There is no hydronephrosis or renal calculi. US/US renal BI IMPRESSION: Unremarkable renal ultrasound. Electronically signed by: Elias Muller MD 09/28/2024 03:23 PM EDT
--- OUTSIDE RECORDS SUMMARY | 2024-09-28 15:26 | XMS_ITS | Encounter Summary ---
Author Organization [facility] Address [address] [facility] [address] [place] [address] Care Team Providers Care Chief Meter Reader Name Role Phone Denisse Jimenez MD Primary Care Provider + Reason for Visit * Reason Onset Date Comments November09/24/2024 Encounter Details Date Type Department Care Team ([facility] st Contact Info) Description 09/24/2024 Telephone [facility] MEDICINE [address] [place], [place] [phone] Denisse Jimenez MD [address] [place], [place] [phone] November Social History Tobacco Use Types Packs/Day Years Used Date Smoking Tobacco: Former Cigarettes 2 12 - 2008 Passive Smoke Exposure: Past Smokeless Tobacco: Never Comments:Quit [phone] Alcohol Use Standard Drinks/Week Comments Yes 12 [...] Telephone Encounter - Myrna Grier MA - 09/24/2024 3:30 PM EDT Telephone call to patient to schedule the following recall: Visit type: Follow up Appointment notes: htn Patient agree to appointment on 12/16/24 at 10:15 AM with Barbara. documented in this encounter Plan of Treatment Upcoming Encounters Date Type Department Care Team (Late st Contact Info) Description 12/16/2024 10:15 AM EDT Office Visit [facility] MEDICINE [address] [place] [address] Denisse Jimenez MD [address] [place] [address] documented as of this encounter Visit Diagnoses Not on filedocumented in this encounter Additional Health Concerns Assessment Noted Time PHQ-9 Depression Total Score: 0 12/09/19 10:49 AM EDT documented as of this encounter Care Teams Chief Meter Reader Relationship Specialty Start Date End Date Denisse Jimenez MD [address] [place] [id number] PCP - General Internal Medicine 10/18/23 documented as of this encounter
== END 2024-09-28 14:56 | disposition home or self-care (01) ==
LOC: HO.US 14:55
PROVIDERS: PCP Internal Medicine; Visit Provider Nurse Practitioner Family
DX: N20.0 Calculus of kidney (principal)
CPT/HCPCS: 76775

== ENCOUNTER → 2024-09-28 14:59 | Outpatient (BNV) | payer OTHER, SELFPAY | PROVIDERS: PCP Internal Medicine; Visit Provider Radiology Diagnostic Radiology | DX: N20.0 Calculus of kidney (principal) | CPT/HCPCS: 76775 ==

== ENCOUNTER 2024-10-12 09:53 | Outpatient (REF) | payer OTHER, SELFPAY ==
--- OUTSIDE RECORDS SUMMARY | 2024-10-12 10:38 | XMS_ITS | Encounter Summary ---
Author Organization [employer] Address [address] [facility] [address] [place] [address] Care Team Providers Care Sports Broadcasting Internship Name Role Phone Denisse Jimenez MD Primary Care Provider + Encounter Details Date Type Department Care Team (Latest Contact Info) Description 10/12/2024 Travel Social History Tobacco Use Types Packs/Day Years Used Date Smoking Tobacco: Former Cigarettes 2 12 - 2008 Passive Smoke Exposure: Past Smokeless Tobacco: Never Comments:Quit [phone] Alcohol Use Standard Drinks/Week Comments Yes 12 [...] Description 12/16/2024 10:15 AM EDT Office Visit [facility]ICINE [address] [place] [address] Denisse Jimenez MD [address] [place] [address] documented as of this encounter Visit Diagnoses Not on filedocumented in this encounter Additional Health Concerns Assessment Noted Time PHQ-9 Depression Total Score: 0 12/09/19 10:49 AM EDT documented as of this encounter Care Teams Sports Broadcasting Internship Relationship Specialty Start Date End Date Denisse Jimenez MD [address] [place] [id number] PCP - General Internal Medicine 10/18/23 documented as of this encounter
[2024-10-12 11:16] LABS: MANUAL DIFF FLAG NO
[2024-10-12 11:27] LABS: Hematocrit 45.0 % (42.0-52.0); Hemoglobin 14.7 g/dl (14.0-18.0); Imm Gran Abs Auto 0.05 X10*3/uL (0.00-0.03); Imm Gran Pct Auto 0.4 % (0.0-0.4); Lymphocytes Absolute Auto 1.4 X10*3/uL (1.2-4.9); Mean Corpuscular HGB Conc 32.7 g/dl (31.0-36.0); Mean Corpuscular Hemoglobin 28.4 pg (27.0-33.0); Mean Corpuscular Volume 86.9 fL (80.0-98.0); NRBC Abs Auto 0.000 X10*3/uL (0.0-0.012); NRBC Pct Auto 0.0 /100WBC (0.0-0.2); Platelet Count 130 X10*3/uL (160-400); Red Blood Count 5.18 X10*6/uL (4.60-5.80); White Blood Count 11.2 X10*3/uL (4.8-10.8)
[2024-10-12 11:49] LABS: Alanine Aminotransferase 30 U/L (0-40); Albumin Level 4.7 g/dL (3.5-5.0); Alkaline Phosphatase 66 U/L (39-117); Aspartate Amino Transferase 38 U/L (5-37); Gamma Glutamyl Transpeptidase 70 U/L (11-51); Total Protein 8.3 g/dL (6.5-8.0)
== END 2024-10-12 09:54 | disposition home or self-care (01) ==
LOC: HO.HHCL 09:53
PROVIDERS: PCP Internal Medicine; Visit Provider Internal Medicine
DX: K21.9 Gastro-esophageal reflux disease without esophagitis (principal); K76.0 Fatty (change of) liver, not elsewhere classified
CPT/HCPCS: 36415; 80076; 82977; 85025

== ENCOUNTER 2024-10-20 15:55 | Outpatient (AMB) | payer OTHER, SELFPAY ==
--- NOTE | 2024-10-20 15:57 | MHC.OFFVIS ---
Intake Visit Reasons: [facility] Follow up(set) Intake Note: Patient is present for / Urology Medication:TADALAFIL Antibiotic Allergy:NONE Blood Thinner:NONE Php Lamp Developer Required: No Allergies No Known Allergies Allergy (Verified 10/20/24 16:23) Medication List - Last Reconciled 10/20/24 by NEGAR Rabago acetaminophen 500 mg PO Q6H PRN amlodipine 10 mg PO DAILY tadalafil (Cialis) 5 mg PO DAILY 90 days HPI Comments Details: Niels is a very pleasant 58-year-old male patient of Dr. French who was accompanied by his significant other at today's office visit. He has a past medical history of diverticulitis and hypertension. He presents to the office today for follow-up of his gross hematuria, erectile dysfunction, nephrolithiasis, and right-sided flank pain. Recent renal imaging results were reviewed with the patient today 10/16 bilateral kidneys with no renal masses, hydronephrosis, or renal calculi per radiology report. In discussion with the patient today reports flank pain he had been experiencing has since subsided. He denies having had any other episodes of gross hematuria since last year. Of note, patient underwent in office cystoscopy 01/[address] Parra that was noted to be normal. Previous CT urogram 10/15 noted bilateral kidneys are normal in size, shape, and attenuation. No hydronephrosis, hydroureter, or calculi seen. The bladder is unremarkable. Cytology 12/16 negative for high-grade urothelial carcinoma. In office urinalysis results reviewed with the patient today. No microscopic hematuria noted. He does feel low-dose Cialis 5 mg daily has been helpful in maintaining his erections. He currently denies any bothersome urinary issues or concerns. Previous workup has included labs as noted and trended below: Testosterone: 06/16 396 Free testosterone: 06/16 46.7 PSA: 06/16 0.4 A1c: 06/16 6.1 We discussed at length potential causes of erectile dysfunction as well as further treatment options and risks and benefits of these treatment options. We also discussed correlation of diabetes and erectile dysfunction. He otherwise denies urinary urgency, urinary frequency, incontinence, nocturia, hematuria, dysuria, foul smelling urine, changes to urinary stream, fever, and or chills. He is happy with his current voiding parameters. He otherwise offers no other issues or concerns at this time. 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 Review of Systems Const All systems reviewed & are unremarkable except as noted in HPI and below Physical Exam Const General: cooperative, healthy appearing, comfortable, no acute distress, well developed, alert and awake Orientation/consciousness: patient oriented x3 Limitations: no limitations HEENT Head: Yes normal to inspection, Yes normocephalic and Yes atraumatic Ears: hearing grossly normal bilaterally Eyes General: appearance normal, both eyes and all related structures Neck Neck: Yes normal visual inspection and Yes trachea midline Chest Chest palpation & inspection: normal inspection of the chest Resp Effort & Inspection: normal respiratory effort and able to speak in complete sentences Cardio Rate: regular rate GI Inspection: Yes normal to inspection General: Yes no CVA tenderness Back/Spine/Pelvis Back: no CVA tenderness Skin General skin exam: no rashes or lesions noted Neuro General: patient oriented x3 Extrem General: Yes normal to inspection Psych Appearance: grossly normal and well kempt Mental Status: mental status grossly normal Speech and movement: Normal speech and movement present and Clear speech present Affect: normal affect Attitude: cooperative Thought process: Normal thought process present Thought content: Normal thought content present Insight: Fair insight present (Psych) Judgement: Fair judgement present (Psych) Results AMB Urinalysis, Automated UA Leukoctes 0 Noemi/uL Last Edit by CASS Gong on 10/20/24 16:10 UA Nitrite Negative Last Edit by CASS Gong on 10/20/24 16:10 UA Urobilinogen 0.2 mg/dL Last Edit by CASS Gong on 10/20/24 16:10 UA Protein 15 mg/dL Last Edit by CASS Gong on 10/20/24 16:10 UA pH 6.0 Last Edit by CASS Gong on 10/20/24 16:10 UA Blood 0 Adrian/uL Last Edit by Iman Feliciano CCM on 10/20/24 16:10 UA Specific [place] 1.025 Last Edit by Iman Feliciano CCM on 10/20/24 16:10 UA Ketone Negative Last Edit by Iman Feliciano [facility] on 10/20/24 16:10 UA Bilirubin 1 mg/dL Last Edit by Iman Feliciano [facility] on 10/20/24 16:10 UA Glucose 0 mg/dL Last Edit by Iman Feliciano [facility] on 10/20/24 16:10 Results Reviewed Results Reviewed: Laboratory Last Values Urine pH (Auto) 6.0 10/20/24 16:08 Specific [place] (Auto) 1.025 10/20/24 16:08 Urine Protein (Auto) 15 mg/dL 10/20/24 16:08 Glucose (UA)(Auto) 0 mg/dL 10/20/24 16:08 Urine Ketones (Auto) Negative 10/20/24 16:08 Urine Blood (Auto) 0 Adrian/uL 10/20/24 16:08 Urine Nitrite (Auto) Negative 10/20/24 16:08 Urine Bilirubin (Auto) 1 mg/dL 10/20/24 16:08 Urine Urobilinogen (Auto) 0.2 mg/dL 10/20/24 16:08 Leukocyte Esterase (Auto) 0 Noemi/uL 10/20/24 16:08 Date of Service: 09/28/24 Procedure(s): US renal BI FINDINGS: Right kidney: The right kidney measures 10.0 x 5.8 x 5.3 cm. Renal parenchymal echotexture and thickness are normal. There are no masses. There is no hydronephrosis or renal calculi. Left Kidney: The left kidney measures 10.0 x 6.7 x 5.8 cm. Renal parenchymal echotexture and thickness are normal. There are no masses. There is no hydronephrosis or renal calculi. IMPRESSION: Unremarkable renal ultrasound. Assessment & Plan Assessment & Plan (1) Erectile dysfunction: Code(s): N52.9 - Male erectile dysfunction, unspecified Category: Medical (2) Gross hematuria: Code(s): R31.0 - Gross hematuria Category: Medical (3) Nephrolithiasis: Code(s): N20.0 - Calculus of kidney Category: Medical Plan In office urinalysis results reviewed with the patient today; as noted above. Recent renal imaging results reviewed with the patient today; as noted above. Continue Cialis daily as discussed and prescribed; refill provided We discussed at length potential causes of ED as well as further treatment options and risks and benefits of these treatment options. Will continue with surveillance monitoring. We discussed lifestyle modifications to assist with ED as well as overall health and well-being. He denies any bothersome urinary issues. He reports be happy with current voiding parameters. Will obtain PSA, testosterone, and hemoglobin A1c in 6 months Follow-up in 6-9 months labs be completed prior; or sooner with any issues, concerns, and or questions. Orders: Orders AMB Urinalysis Automated Today Z13.9 - Encounter for screening, unspecified Prostate Specific Antigen 6 Months N52.9 - Male erectile dysfunction, unspecified Testosterone, Free/Total 6 Months E11.69 - Type 2 diabetes mellitus with other specified complication, N52.1 - Erectile dysfunction due to diseases classified elsewhere Hemoglobin A1c 6 Months E11.9 - Type 2 diabetes mellitus without complications Medications: Refilled tadalafil (Cialis) [id number] [facility] [id number] Member [id number] 5 mg PO DAILY 90 tabs 0RF 90 days Patient Instructions: The patient had an opportunity to ask questions regarding the treatment plan. All questions were answered. Physical exam, labs, and imaging were discussed and reviewed in detail. As well as risks, benefits, and discussion of treatment choices. No major barriers to understanding were identified. The patient expressed understanding and agreement with the above treatment plan. The patient was made aware they should contact our office by phone for worsening of their current condition, the appearance of new symptoms, or with any questions or concerns. Compliance is encouraged with any medications and follow up testing that is ordered. It is a privilege to be allowed the opportunity to participate in? your urological care.? Again, if you have any questions or concerns If you have any questions or concerns please do not hesitate to contact me. The office is [phone]. This note is constructed using voice recognition software. While every effort has been made to ensure accuracy brake drum molder errors may have been included. Yours sincerely, Lavinia Cleveland, BOILER SERVICE TECHNICIAN-BC Coding Level of Care Code Est Pt Level 3 (89757) Complex EM visit Add On G2211 Diagnoses Erectile dysfunction N52.9 Gross hematuria R31.0 Nephrolithiasis N20.0
--- OUTSIDE RECORDS SUMMARY | 2024-10-20 16:36 | XMS_ITS | Encounter Summary ---
Author Organization [employer] Address [address] [facility] [address] [place] [address] Care Team Providers Care Corrosion Engineer Name Role Phone Denisse Jimenez MD Primary Care Provider + Encounter Details Date Type Department Care Team (Late st Contact Info) Description 10/12/2024 Results Follow-Up [facility] MEDICINE [address] [place], [place] [phone] Denisse Jimenez MD [address] [place], [place] [phone] POCT COVID-19 Ag [place] ID NOW, Hepatic Function Panel, CBC auto differential, Gamma Glutamyl Transferase (GGT) Social History Tobacco Use Types Packs/Day Years Used Date Smoking Tobacco: Former Cigarettes 2 12 - 2008 Passive Smoke Exposure: Past Smokeless Tobacco: Never Comments:Quit [id number] Alcohol Use Standard Drinks/Week Comments Yes 12 [...] as of this encounter Miscellaneous Notes * Result Encounter Note - Denisse Jimenez MD - 10/12/2024 12:55 PM EDT This lab has shown mild leukocytosis consistent with viral gastroenteritis, mildly elevated LFTs and GGT consistent with fatty liver and alcohol use which was all discussed with patient at today's visit and he has been referred to GI for further evaluation of these conditions. No additional treatment or medications at this time. documented in this encounter Plan of Treatment Upcoming Encounters Date Type Department Care Team (Late st Contact Info) Description 12/16/2024 10:15 AM EDT Office Visit [facility] MEDICINE [address] [place] [address] Denisse Jimenez MD [address] [place] [address] documented as of this encounter Visit Diagnoses Not on filedocumented in this encounter Additional Health Concerns Assessment Noted Time PHQ-9 Depression Total Score: 0 12/09/19 10:49 AM EDT documented as of this encounter Care Teams Corrosion Engineer Relationship Specialty Start Date End Date Denisse Jimenez MD [address] [place] [address] PCP - General Internal Medicine 10/18/23 documented as of this encounter
== END 2024-10-20 16:29 | disposition home or self-care (01) ==
LOC: HO.HUSH 15:55
PROVIDERS: PCP Nurse Practitioner Family; Visit Provider Nurse Practitioner Family
DX: N52.9 Male erectile dysfunction, unspecified (principal); R31.0 Gross hematuria; N20.0 Calculus of kidney; Z13.9 Encounter for screening, unspecified
CPT/HCPCS: 99213; G2211

== ENCOUNTER → 2024-10-20 15:55 | Outpatient (BNVA) | payer OTHER, SELFPAY | PROVIDERS: PCP Nurse Practitioner Family; Visit Provider Nurse Practitioner Family | DX: Z71.2 Person consulting for explanation of examination or test findings (principal); N20.0 Calculus of kidney; R31.0 Gross hematuria; N52.9 Male erectile dysfunction, unspecified | CPT/HCPCS: 81003; 99212 ==

== ENCOUNTER 2024-12-10 15:40 | Outpatient (AMB) | payer OTHER, SELFPAY ==
--- NOTE | 2024-12-10 15:44 | A.OFFVIS_ITS ---
Vital Signs 12/10/24 15:48 Height 5 ft 5 in Weight 177 lb BMI 29.5 BP 148/81 H Blood Pressure Location Lt brachial Position Sitting Pulse 85 Intake Visit Reasons: [place] screening Intake Note: Patient new patient for 2nd pre Colonoscopy screening. Patient cc: abdominal discomfort, acid reflux, some constipation, patient went to the hospital due abdominal pain and he saw rectal bleeding. Clinical Document Improvement Educator Required: No Clinical Document Improvement Educator Services: Clinical Document Improvement Educator Offered & Declined Accompanied by: Self / Same As Patient Allergies No Known Allergies Allergy (Verified 12/10/24 15:48) Medication List - Last Reconciled 12/10/24 by Angela Guillen CNP acetaminophen 500 mg PO Q6H PRN amlodipine 10 mg PO DAILY aspirin 81 mg PO DAILY atorvastatin 40 mg PO BEDTIME metoprolol succinate ER 25 mg PO DAILY tadalafil (Cialis) 5 mg PO DAILY 90 days HPI HPI [place] screening: Details: Patient is a 59-year-old male with PMH of hypertension . Referred by PCP for further evaluation of GERD. Pt reports onset of symptoms approx 6 months ago including recurrent right lower quadrant abdominal pain, persistent but not worsened by food/drink or BM, often severe enough to require rest, and sometimes radiating to groin/testicles. Pain occurs daily and prompted ED visit with hospitalization in August for cardiac workup. Pt endorses frequent heartburn and reflux nearly every other day, occasionally with regurgitation of food or liquid, and variable appetite suppression related to heartburn. Stool pattern fluctuates between constipation with straining (type 5) and occasional loose (type 6), at times requiring multiple BMs/day, sometimes nocturnally, but overall maintains daily BM. Pt was previously treated for presumed diverticulitis infection with 2-wk abx course; PPI not yet initiated. Recent imaging (CT 09/2023) noted hepatic steatosis. Reports prior cholesterol, BP issues, and pre-diabetes. No recent N/V, wt loss, GI bleeding except one episode following GI infection/hospitalization in August. No dysphagia. PMH includes elevated LFTs and family hx of Crohn's dx in brother and nephew. Also reports episodes of dizziness and near-syncope possibly pain-related, and chronic intermittent leg pain. Patient denies: fever/chills, n/v, appetite changes, dysphasia, unintentional wt loss. Social hx: Diet: High in processed carbs (bagels, cream cheese, white bread/pasta), frequent fruits (fruit cups), vegetables daily, beans/nuts/seeds as tolerated. High soda, transitioning to water and electrolyte beverages (e.g., Gatorade). Alcohol: Occasional beer, rare liquor. 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 . [facility] Medical History (Updated 12/11/24 @ 07:53 by Angela Guillen CNP) Right lower quadrant abdominal pain Acid reflux Testicular pain Elevated LFTs Change in stool Colon cancer screening Diverticulitis HTN (hypertension) Surgical History Hx of splenectomy H/O exploratory laparotomy Family History (Updated 12/10/24 @ 15:52 by Vianey Ortiz) Father Stroke Brother No problems noted. 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 Review of Systems Const Reports as per HPI ENT Reports as per HPI Card Reports as per HPI Resp Reports as per HPI GI Reports as per HPI Reports as per HPI Physical Exam Vital Signs: Last Vital Signs Pulse 85 12/10/24 15:48 BP 148/81 H 12/10/24 15:48 BMI result Body Mass Index 29.5 Const General: healthy appearing, no acute distress and well developed Nutritional Appearance: average body habitus Orientation/consciousness: patient oriented x3 HEENT Head: Yes normal to inspection, Yes normocephalic and Yes atraumatic Face and sinus: Yes normal facial exam Eyes General: appearance normal, both eyes and all related structures Neck Neck: Yes normal visual inspection Resp Effort & Inspection: normal respiratory effort, able to speak in complete sentences, no tracheal deviation and symmetric chest movement Auscultation: clear to auscultation bilaterally Cardio Jugular venous distension: no JVD Rate: regular rate Rhythm: regular rhythm Heart sounds: S1 normal heart sound present, S2 normal heart sound present, no gallops and no murmurs GI Inspection: Yes normal to inspection and No distended Palpation (GI): Soft to palpation, not firm, Tenderness to palpation present (GI) in the epigastrum and in the RLQ; with no rebound tenderness and No hepatosplenomegaly present Auscultation: normal bowel sounds Penis: normal penis and uncircumcised Scrotum: scrotum normal, no ecchymosis, not edematous, no inguinal hernias, no scrotal swelling and no ulcerations Testes: Testes normal and other (tender to palp) Neuro General: patient oriented x3 Gait exam (Neuro): Normal gait present Psych Appearance: grossly normal Mental Status: mental status grossly normal Speech and movement: Normal speech and movement present Affect: normal affect Attitude: cooperative Thought process: Normal thought process present Thought content: Normal thought content present Insight: Good insight present (Psych) Judgement: Good judgement present (Psych) Assessment & Plan Assessment & Plan (1) Colon cancer screening: Comment: 01/02/12 colonoscopy ( Dr. Chavarria) complete with adequate prep-normal colon mucosa Code(s): Z12.11 - Encounter for screening for malignant neoplasm of colon Category: Medical Plan: Due for age standard screening. Medications: -prescriptions for laxative tablets and MiraLax sent to pharmacy; instructions for Gatorade purchase and clear liquid diet given. We will review prep instructions in detail at follow up (2) Abdominal pain: Code(s): R10.9 - Unspecified abdominal pain Category: Medical Qualifiers: Abdominal location: right lower quadrant Qualified Code(s): R10.31 - Right lower quadrant pain Plan: Ongoing daily pain with RLQ and groin/testicular focus, variable with BM but not classically IBS or IBD based on history and imaging to date, hx of diverticulitis Additional Testing: -Repeat labs: liver panel (prior elevated), inflammatory markers -Stool studies: H. pylori, fecal calprotectin/lactoferrin (IBD screen), Celiac serology -repeat CT ab/pelvis, prior imaging during hospitalizations did not include abdomen -colonoscopy as above Medication Mgmt:None specific until pending workup Lifestyle:Encourage dietary fiber (vegetables, beans, nuts, whole grains), maintain hydration, trial OTC fiber supplement (start with 1 tab QD x2wks, then 2 tabs QD as tolerated) F/U:8 wk GI f/u, sooner PRN for worsening sx (3) Elevated LFTs: Code(s): R79.89 - Other specified abnormal findings of blood chemistry Category: Medical Plan: Hepatic Steatosis noted on imaging, elevated LFTs, metabolic risk factors (pre- diabetes, hyperlipidemia, BMI increase) Additional Testing: -Repeat LFTs (fasting) -hepatitis serologies already negative -celiac screen -autoimmune markers Medication Mgmt:Maintain statin Lifestyle: Weight loss advice, optimize diet, continue physical activity, minimize etoh F/U:Review at 8 week GI f/u (4) Acid reflux: Code(s): K21.9 - Gastro-esophageal reflux disease without esophagitis Category: Medical Qualifiers: Esophagitis presence: esophagitis presence not specified Qualified Code(s): K21.9 - Gastro-esophageal reflux disease without esophagitis Plan: Chronic heartburn, regurgitation, impact on appetite; responsive to acid suppression OTC but not consistently medicated Additional Testing:R/o H. pylori with stool Ag test before PPI re-initiation Medication Mgmt:Start omeprazole daily on empty stomach after completion of stool test Lifestyle:Gradually reduce/avoid soda and trigger foods, increase water F/U:8 wk GI F/U to review response, readdress as needed (5) Testicular pain: Code(s): N50.819 - Testicular pain, unspecified Category: Medical Qualifiers: Laterality: bilateral Qualified Code(s): N50.811 - Right testicular pain; N50.812 - Left testicular pain Plan: bilateral, ongoing. Previous negative ultrasound. Additional Testing:STI urine screen, Trich negative 05/2024 Follow up: Futher workup deferred to PCP Plan Follow-up in 8 weeks or sooner as needed Time: I spent a total of 60 minutes on the date of encounter which includes: Preparing to see the patient (reviewed previous documentation, test results and medical history) Performing a medically appropriate exam and/or evaluation Ordering medications, tests, and procedures Documenting clinical information in the health record Orders: Orders Calprotectin, Fecal 12/10/24 R19.5 - Other fecal abnormalities Ferritin Today R19.5 - Other fecal abnormalities Comprehensive [place]. Panel Fast Today R10.31 - Right lower quadrant pain Mitochondrial Antibody Today R79.89 - Other specified abnormal findings of blood chemistry SAMMY Reflex Titer and Pattern Today R79.89 - Other specified abnormal findings of blood chemistry H pylori Ag Stool 12/10/24 R10.9 - Unspecified abdominal pain Transglutaminase IgA Today R79.89 - Other specified abnormal findings of blood chemistry Smooth Muscle Antibody Today R79.89 - Other specified abnormal findings of blood chemistry C Reactive Protein Today R19.5 - Other fecal abnormalities Lipase Today R79.89 - Other specified abnormal findings of blood chemistry CT NG by PCR Urine Today N50.819 - Testicular pain, unspecified CT abdomen pelvis w IV con 12/10/24 R10.31 - Right lower quadrant pain Referrals GI Procedure Notification K21.9 - Gastro-esophageal reflux disease without esophagitis, Z12.11 - Encounter for screening for malignant neoplasm of colon Medications: New omeprazole Take one tablet daily. Best taken on an empty, 30 minutes before eating. 20 mg PO DAILY 90 caps 1RF bisacodyl Take per colonoscopy instructions 5 mg PO ONCE 4 tabs 0RF polyethylene glycol 3350 (Miralax) per colonoscopy prep instructions 238 grams PO ONCE 238 grams 0RF methylcellulose (laxative) (Fiber Laxative (methylcellulose)) Take 1 daily X 2 weeks, increase to two tablets daily thereafter 500 mg PO DAILY 180 tabs 3RF Coding Level of Care Code New Pt New Pt Level 5 (79786) Patient Type New Diagnoses Colon cancer screening Z12.11 Right lower quadrant abdominal pain R10.31 Abdominal location: right lower quadrant Elevated LFTs R79.89 Gastroesophageal reflux disease, unspecified whether esophagitis present K21.9 Esophagitis presence: esophagitis presence not specified Pain in both testicles N50.811; N50.812 Laterality: bilateral
[2024-12-10 15:48] VITALS: BP 148/81; PULSE 85; BMI 29.5
--- OUTSIDE RECORDS SUMMARY | 2024-12-10 16:55 | XMS_ITS | Encounter Summary ---
Author Organization [employer] Address [address] [facility] [address] [place] [address] Care Team Providers Care Educational Paraprofessional Name Role Phone Denisse Jimenez MD Primary Care Provider + Reason for Visit * Reason Comments Pre-visit Planning SDOH screening compl eted on 05/27/2024 Encounter Details Date Type Department Care Team ([facility] st Contact Info) Description 12/08/2024 Patient Outreach [facility] [address] [place], [place] [phone] Denisse Jimenez MD [address] [place], [place] [phone] Pre-visit Planning (SDOH screening completed on 05/27/2024) Social History Tobacco Use Types Packs/Day Years Used Date Smoking Tobacco: Former Cigarettes 2 12 - 2008 Passive Smoke Exposure: Past Smokeless Tobacco: Never Comments:Quit [id number] Alcohol Use Standard Drinks/Week Comments Yes 12 (1 standard drink = 0.6 oz pu re alcohol) on weekends Depression Answer Date Recorded Patient Health Questionnaire-9 Score 0 12/09/2023 Patient Health Questionnaire-9 Score 0 12/09/2023 Last PHQ-9: Questionnaire Data Not on file 0 12/09/2023 Housing Stability Answer Date Recorded What is your housing situation today? I have victoria serene 11/19/[address] you li [...] as of this encounter Progress Notes * Antoinette Tate - 12/08/2024 11:55 AM EDT CC Antoinette placed successful outbound call to patient for pre-visit planning. Patient name and confirmed. Patient confirms appt date and time, and has transportation. Biggest concern for appointment at this time is none Patient advised to bring to appointment a photo id and insurance card. Appropriate screenings completed in anticipation of appointment. documented in this encounter Plan of Treatment Upcoming Encounters Date Type Department Care Team (Late st Contact Info) Description 12/16/2024 10:15 AM EDT Office Visit [facility] [address] [place] [address] Denisse Jimenez MD [address] [place] [address] documented as of this encounter Visit Diagnoses Not on filedocumented in this encounter Additional Health Concerns Assessment Noted Time PHQ-9 Depression Total Score: 0 12/09/19 10:49 AM EDT documented as of this encounter Care Teams Educational Paraprofessional Relationship Specialty Start Date End Date Denisse Jimenez MD [address] [place] [id number] PCP - General Internal Medicine 10/18/23 documented as of this encounter
--- OUTSIDE RECORDS SUMMARY | 2024-12-10 16:55 | XMS_ITS | Encounter Summary ---
Author Organization [employer] Address [address] [facility] [address] [place] [address] Care Team Providers Care Branch Store Manager Name Role Phone Denisse Jimenez MD Primary Care Provider + Encounter Details Date Type Department Care Team (Late st Contact Info) Description 10/12/2024 Results Follow-Up [facility] [address] [place], [place] [phone] Denisse Jimenez MD [address] [place], [place] [phone] POCT COVID-19 Ag [place] ID NOW, Hepatic Function Panel, CBC auto differential, Gamma Glutamyl Transferase (GGT) Social History Tobacco Use Types Packs/Day Years Used Date Smoking Tobacco: Former Cigarettes 2 12 - 2008 Passive Smoke Exposure: Past Smokeless Tobacco: Never Comments:Quit [id number] Alcohol Use Standard Drinks/Week Comments Yes 12 (1 standard drink = 0.6 oz pu re alcohol) on weekends Depression Answer Date Recorded Patient Health Questionnaire-9 Score 0 12/09/2023 Patient Health Questionnaire-9 Score 0 12/09/2023 Last PHQ-9: Questionnaire Data Not on file 0 12/09/2023 Housing Stability Answer Date Recorded What is your housing situation today? I have victoira cast 11/19/[address] you [...] Description 12/16/2024 10:15 AM EDT Office Visit [facility] [address] [place] [address] Denisse Jimenez MD [address] [place] [address] documented as of this encounter Visit Diagnoses Not on filedocumented in this encounter Additional Health Concerns Assessment Noted Time PHQ-9 Depression Total Score: 0 12/09/19 10:49 AM EDT documented as of this encounter Care Teams Branch Store Manager Relationship Specialty Start Date End Date Denisse Jimenez MD [address] [place] [address] PCP - General Internal Medicine 10/18/23 documented as of this encounter
--- OUTSIDE RECORDS SUMMARY | 2024-12-10 16:56 | XMS_ITS | Clinical Summary ---
Author Organization [employer] Address [address] [place] [address] Care Team Providers Care Paperhanger Pipe Name Role Phone Denisse Jimenez MD Primary Care Provider + Allergies No known active allergies Medications Blood Pressure Monitoring (Blood Pressure Cuff) misc Use daily as prescribed 1 each 4 Active atorvastatin (Lipitor) 40 MG tablet Take 1 tablet (40 mg) by mouth at bedtime. 30 tablet 4 01/14/20 25 Active amLODIPine-jeniffer zepril (Lotrel) 5-10 MG capsule Take 1 capsule by mouth Once per day. 30 capsule 4 02/03/20 25 Active loratadine (Claritin) 10 MG tablet Take 1 tablet (10 mg) by mouth Once per day. 30 tablet 5 04/02/19 26 Active fluticasone (Flonase) 50 MCG/ACT nasal spray Administer 2 sprays into each nostril Once per day. Shake gently. Before first use, prime pump. After use, clean tip and replace cap. 16 g 5 04/02/19 26 Active sodium chloride ([place] Nasal Salkum) 0.65 % nasal spray Administer 2 sprays into each nostril if needed for congestion. 30 mL 5 04/02/19 26 Active aspirin 81 MG EC tablet Take 1 tablet (81 mg) by mouth Once per day. 30 tablet 5 09/04/19 26 Active metoprolol succinate XL (Toprol XL) 25 MG 24 hr tablet Take 1 tablet (25 mg) by mouth Once per day. Do not crush or chew. 30 tablet 5 09/04/19 26 Active pantoprazole (Protonix) 40 MG EC tablet Take 1 tablet (40 mg) by mouth before breakfast and before evening meal. Do not crush, chew, or split. 60 tablet 5 Active Active Problems Problem Noted Date Diagnosed Date Gastroesophageal reflux disease 10/12/2024 Assessment & Plan (10/12/2024 12:44 PM EDT): Persistent, needs to start pantoprazole, patient instructed to pick it up today Advised importance of avoiding alcohol, will refer to GI due to concomitant fatty liver. Start sucralfate for 1 or 2 weeks as needed to improve abdominal pain and p.o. tolerance. Gastroenteritis 10/12/2024 Assessment & Plan (10/12/2024 12:44 PM EDT): Partially resolved, advised regarding sucralfate today and start with clear fluid diet only. May advance to PARISH diet then to soft diet as tolerated within the next 2 days. Exertional chest pain 08/31/2024 Assessment & Plan (09/03/2024 3:49 PM EDT): Apparently longstanding symptoms for at least 5 years,? Stable angina? Optimize BP control, start metoprolol. Refer to cardiology Start aspirin 81 mg, continue atorvastatin at night. Advised to go to ED if he develops any type of chest pain that does not improve with rest or is associated to SOB, lightheadedness, or numbness. Assessment & Plan (08/31/2024 5:34 PM EDT): It is apparently a longstanding symptom,? Stable angina? . He used to go to cardiology (? [facility] cardiology?) more than 5 years ago. Order labs and follow-up with me next week Advised to go to ED if he developed nonexertional chest pain, chest pain gets worse or does not improve with rest. Erectile dysfunction 06/03/2024 Assessment & Plan (08/31/2024 5:35 PM EDT): Doing better with Cialis, tolerates med fairly well. Follow-up with urology Advised regarding importance of tight control of hypertension and lipids Assessment & Plan (06/03/2024 10:53 AM EDT): [...] influenza IZ Apnea 02/03/2024 Assessment & Plan (09/03/2024 3:48 PM EDT): Sleep study apparently done last year, will request sleep study. Assessment & Plan (02/03/2024 4:17 PM EST): Witnessed episodes by partner during sleep, ro NANDINI Order sleep study and will do titration if needed. FU w me in 4m Hydrocele 12/09/2023 Fatty liver 12/09/2023 Assessment & Plan (10/12/2024 12:45 PM EDT): Reorder labs. Counseled regarding importance of avoiding alcohol use Refer to GI Assessment & Plan (06/03/2024 10:25 AM EDT): [...] fat diet, f/u lipids in 2-3 months Gross hematuria 10/18/2023 Assessment & Plan (02/03/2024 3:38 PM EST): CT Urogram on 09/2023 was Normal. Seen by [facility] urology Assessment & Plan (12/09/2023 11:40 AM EDT): - resolved, pt has upcoming urology appointment next month Assessment & Plan (10/18/2023 5:13 PM EDT): Possible MANDI , referral to urology Sprain of anterior talofibular ligament of left ankle 10/18/2023 Assessment & Plan (10/18/2023 5:13 PM EDT): Dispensed aircast from [employer] [place]. X-ray ordered, Note given for work, activity as tolerated Primary hypertension 10/18/2023 Assessment & Plan (09/03/2024 3:54 PM EDT): Reportedly not controlled at home, will start metoprolol XL 25 mg nightly Continue Lotrel same dose and follow-up BP with RN in 2 to 3 weeks Follow up with the Nurse for blood pressure check in 3 weeks. Continue with a low sodium diet and regular exercise as tolerated. For BP < or = to 139/89 (or 129/79 for diabetic patients) continue current medication regimen and follow up with PCP in 8 weeks. For BP > or = to 140/90 (or 130/80 for diabetic patients) increase Metoprolol Succinate to 50 mg once a day if heart rate above 68 bpm. Will try Lotrel to 5/20 mg once a day if metoprolol cannot be increased Follow up with PCP in 8 weeks from now Assessment & Plan (08/31/2024 5:33 PM EDT): Unclear if it is uncontrolled today due to low back pain. He will continue Lotrel same dose and follow-up with me next week with BP readings Counseled regarding low-salt diet and check BP at home twice per week or as needed symptoms. He is aware that he should go immediately to ED if he is to develop headache, weakness, paresthesias or any other neurological symptoms. Assessment & Plan (02/03/2024 4:18 PM EST): [...] 5 mg, call for any side effects Resolved Problems Problem Noted Date Diagnosed Date Resolved Date Lower urinary tract symptoms (LUTS) 06/03/2024 08/31/2024 Assessment & Plan (06/03/2024 10:54 AM EDT): Post micturition dribbling could be related either to UTI versus BPH. Order labs and treat accordingly, otherwise follow-up in 6 weeks Diverticulitis 12/06/2023 08/31/2024 Injury of left knee 10/18/2023 09/01/19 Assessment & Plan (12/09/2023 11:41 AM EDT): - take Tylenol PRN - information about orthopedics appointment provided to the pt Assessment & Plan (10/18/2023 5:13 PM EDT): Referral to ortho suspect meniscal injury Encounters Date Type Department Care Team Description 12/08/2024 Patient Outreach [facility] [address] [place] [phone] Denisse Jimenez MD Pre-visit Planning (SDOH screening completed on 05/27/2024) 10/12/2024 9:40 AM EDT Office Visit [facility] [address] [place] [phone] Denisse Jimenez MD Chills (Primary Dx); Gastroesophageal reflux disease, unspecified whether esophagitis present; Fatty liver; Gastroenteritis 10/12/2024 Results Follow-Up [facility] [address] [place] [phone] Denisse Jimenez MD POCT COVID-19 Ag [place] ID NOW, Hepatic Function Panel, CBC auto differential, Gamma Glutamyl Transferase (GGT) 10/12/2024 Travel 09/28/2024 Orders Only [facility] External Provider, [facility] 09/24/[address] [address] Denisse Jimenez MD November09/22/2024 3:30 PM EDT Clinical Support [address] [address] Vandana Nice RN Primary hypertension [I10] 09/22/[address] [address] Denisse Jimenez MD 09/22/2024 Travel from Last 3 Months Immunizations Immunization Administration Dates Next Due Influenza, IIV3, injectable 12/09/2013 Influenza, Split (incl. purified surface antigen ) 11/19/2011 Influenza, seasonal, injectable, preservative fr ee 02/03/2024,12/09/2023 Pneumococcal Polysaccharide PPSV23 11/29/2013 Social History Tobacco Use Types Packs/Day Years Used Date Smoking Tobacco: Former Cigarettes 2 12 1 7 - 2008 Passive Smoke Exposure: Past Smokeless Tobacco: Never Tobacco Cessation:Counseling Given: Not Answered Comments:Quit Alcohol Use Standard Drinks/Week Comments Yes 12 [...] Sign Reading Time Taken Comments Blood Pressure 160/94 10/12/2024 9:04 AM EDT Pulse 86 10/12/2024 9:04 AM EDT Temperature 37.2 C (98.9 F) 10/12/2024 9:04 AM EDT Respiratory Rate 17 10/12/2024 9:04 AM EDT Oxygen Saturation 98% 10/12/2024 9:04 AM EDT Inhaled Oxygen Concentration - - Weight 77.3 kg (170 lb 6.4 oz) 10/12/2024 9:04 A M EDT Height 172.7 cm (5' 8 ) 10/12/2024 9:04 AM EDT Body Mass Index 25.91 10/12/2024 9:04 AM EDT Plan of Treatment Upcoming Encounters Date Type Department Care Team (Late st Contact Info) Description 12/16/2024 10:15 AM EDT Office Visit [facility] [address] [place], [place] [phone] Denisse Jimenez MD [address] [place] [address] Health Maintenance Due Date Last Done Comments CT Colonography 1965 Colonoscopy 1966 Colorectal Cancer Screening 1965 FIT DNA/Cologuard 1966 FIT 1965 FOBT 1965 Sigmoidoscopy 1965 Disability Screening 1966 Alcohol/Substance Use Screening 1978 DTaP/Tdap/Td Vaccines [...] X-Ray: Bitewings 03/31/2023 03/30/2022 COVID-19 Vaccine ( - season) 2024 05/29/2021, 08/16/2020, 07/19/2020 Influenza Vaccine (#1) 2024 , 12/09/2023, 12/09/2013, Additional history exists Depression Screening 12/08/2024 12/09/2023, 12/09/19 24 Dental X-Ray: Full Mouth 03/31/2025 03/30/2022 SDOH Screening 05/27/2025 05/27/2024 Diabetes: Hemoglobin A1C 06/03/2025 06/03/2024, 12/24 Tobacco Screening 10/12/2025 10/12/2024 Lipid Panel 09/01/2029 09/01/2024, 12/24, 10/21/2023 RSV Patients and Patients Aged 60 years or older (1 - 1-dose 75+ series) 2041 HIV Screening Completed 01/14/2024 Hepatitis C Screening Completed 05/27/2024, 024 HIB Vaccines Aged Out No longer eligi ble based on patient's age to complete this topic HPV Vaccines Aged Out No longer eligi ble based on patient's age to complete this topic IPV Vaccines Aged Out No longer eligi ble based on patient's age to complete this topic Meningococcal B Vaccine Aged Out No l onger eligible based on patient's age to complete [...] Procedure Name Priority Date/Time Associated Diagnosis Comments CBC WITH AUTO DIFFERENTIAL Routine 10/12/2024 10:08 AM EDT Gastroesophageal reflux disease, unspecified whether esophagitis present Fatty liver GGT Routine 10/12/2024 10:03 AM EDT Fatty liver HEPATIC FUNCTION PANEL Routine 10/12/2024 10:03 AM EDT Fatty liver POCT COVID-19 AG CARTAGENA ID NOW Routine 10/12/2024 9:41 AM EDT Chills US RENAL BI Routine 09/28/2024 3:05 PM EDT LIPID PANEL WITH REFLEX TO DIRECT LDL Routine 09/01/2024 8:05 AM EDT Primary hypertension HEMOGLOBIN A1C Routine 06/03/2024 10:03 AM EDT Erectile dysfunction, unspecified erectile dysfunction type HEPATITIS PANEL, GENERAL Routine 05/27/2024 8:04 AM EST Hyperlipidemia LDL goal <100 HIV 1/2 ANTIGEN/ANTIBODY, FOURTH GENERATION W/RFL Routine 01/14/2024 8:36 AM EDT Fatty liver PROPHYLAXIS - ADULT Routine 03/30/2022 2 :00 PM EST Periodontal disease INTRAORAL - COMPLETE SERIES OF RADIOGRAPHIC IMAGES Routine 03/30/2022 2:00 PM EST Periodontal disease COMPREHENSIVE ORAL EVALUATION - NEW OR ESTABLISHED PATIENT Routine 03/30/2022 2:00 PM EST Periodontal disease from Last 3 Months or Most Recently Relevant to Health Maintenance Results * (ABNORMAL) CBC auto differential (10/12/2024 10:08 AM EDT) White Blood Count 11.2(H) 4.8 - 10.8 X10*3/uL [facility] Red Blood Count 5.18 4.60 - 5.80 X10*6/uL [facility] Hemoglobin 14.7 14.0 - 18.0 g/dl [facility] Hematocrit 45.0 42.0 - 52.0 % [facility] Mean Corpuscular Volume 86.9 80.0 - 98.0 fL [facility] Mean Corpuscular Hemoglobin 28.4 27.0 - 33.0 pg [facility] Mean Corpuscular HGB Conc 32.7 31.0 - 36.0 g/dl [facility] Red Cell Distribution Width 12.8 11.0 - 16.0 % [facility] Platelet Count 130(L) 160 - 400 X10*3/uL [facility] Mean Platelet Volume 12.9(H) 9.4 - 12.4 fL [facility] Neutrophils Percent Auto 76.3(H) 45 - 73 % [facility] Imm Gran Pct Auto 0.4 0.0 - 0.4 % [facility] Lymphocytes Percent Auto 12.1(L) 20 - 40 % [facility] Monocytes Percent Auto 10.7 2 - 11 % [facility] Eosinophils Percent Auto 0.1 0 - 4 % [facility] Basophils Percent Auto 0.4 0 - 2 % [facility] NRBC Pct Auto 0.0 0.0 - 0.2 /100WBC [facility] Neutrophils Absolute Auto 8.5(H) 2.0 - 8.3 x10*3/uL [facility] Imm Gran Abs Auto 0.05(H) 0.00 - 0.03 X10*3/uL [facility] Lymphocytes Absolute Auto 1.4 1.2 - 4.9 X10*3/uL [facility] Monocytes Absolute Auto 1.2 0.1 - 1.2 X10*3/uL [facility] Eosinophils Absolute Auto 0.0 0.0 - 0.4 X10*3/uL [facility] Basophils Absolute Auto 0.0 0.0 - 0.2 X10*3/uL [facility] NRBC Abs Auto 0.000 0.0 - 0.012 X10*3/uL [facility] Blood Venous blood specimen / Unknown 10/12/2024 10:08 AM EDT 10/12/2024 11:12 AM EDT Denisse Jimenez MD LAB BLOOD ORDERABLES Fin al Result [facility] [address] [place] [phone] * (ABNORMAL) Gamma Glutamyl Transferase (GGT) (10/12/2024 10:03 AM EDT) Gamma Glutamyl Transpeptidase 70(H) 11 - 51 U/L [facility] Blood Venous blood specimen / Unknown 10/12/2024 10:03 AM EDT 10/12/2024 11:12 AM EDT Denisse Jimenez MD LAB BLOOD ORDERABLES Fin al Result Performing Organization Address [facility] Co de Phone Number [facility] [address] [place] [phone] * (ABNORMAL) Hepatic Function Panel (10/12/2024 10:03 AM EDT) Pathologist [facility] Bilirubin, Total 1.0 0.0 - 1.0 mg/dL [facility] Bilirubin, Direct 0.4 0.0 - 0.5 mg/dL [facility] Aspartate Amino Transferase 38(H) 5 - 37 U/L [facility] Comment:Slight Hemolysis.Int erpret result with caution. Alanine Aminotransferase 30 0 - 40 U/L [facility] Total Protein 8.3(H) 6.5 - 8.0 g/dL [facility] Albumin Level 4.7 3.5 - 5.0 g/dL [facility] Alkaline Phosphatase 66 39 - 117 U/L [facility] Blood Venous blood specimen / Unknown 10/12/2024 10:03 AM EDT 10/12/2024 11:12 AM EDT Denisse Jimenez MD LAB BLOOD ORDERABLES Fin al Result Performing Organization Address [facility] Co de Phone Number [facility] [address] [place] [phone] * POCT COVID-19 Ag [place] ID NOW (10/12/2024 9:41 AM EDT) [facility] Coronavirus Antigen PCR Negative Negative, Indeterminate, None Detected, Invalid, Specimen unsatisfactory for evaluation, Weakly Positive, 2+ Swab 10/12/2024 9:41 AM EDT Denisse Jimenez MD POINT OF CARE TEST ENTER /EDIT ORDERABLES Final Result * US RENAL BI (09/28/2024 3:05 PM EDT) Anatomical Region Laterality Modality Abdomen Ultrasound 09/28/2024 3:05 PM EDT Narrative 09/28/2024 3:26 PM EDT [address] [address] Ultrasound Report Signed Patient: Niels Villavicencio MR#: [id number] : 1965 Acct:[id number] Age/Sex: 59 / M ADM Date: 09/28/24 Loc: HO.US Attending Dr: Lavinia BILLS Ordering Physician: Lavinia Cleveland Date of Service: 09/28/24 Procedure(s): US renal BI Accession Number(s): [id number] cc: Denisse Jimenez MD; Lavinia Cleveland EXAMINATION: US KIDNEY BILATERAL HISTORY: N20.0 - Calculus of kidney TECHNIQUE: Real-time grayscale ultrasound imaging of the kidneys was performed and images were reviewed. COMPARISON: Correlation is made with a CT of the abdomen without contrast dated 10/05/2023. FINDINGS: Right kidney: The right kidney measures 10.0 x 5.8 x 5.3 cm. Renal parenchymal echotexture and thickness are normal. There are no masses. There is no hydronephrosis or renal calculi. Left Kidney: The left kidney measures 10.0 x 6.7 x 5.8 cm. Renal parenchymal echotexture and thickness are normal. There are no masses. There is no hydronephrosis or renal calculi. US/US renal BI IMPRESSION: Unremarkable renal ultrasound. Electronically signed by: Elias Muller MD 09/28/2024 03:23 PM EDT Dictated By: Elias Muller MD Signed By: <Electronically signed by Elias Muller MD in OV> 09/28/24 1523 DD/ 1505 TD/TT: 09/28/24 1509 Dispenser Operator: Procedure Note Donotuseinterpreter, Image - 09/28/[address] [address] Ultrasound Report Signed Patient: Niels Villavicencio RMR#: [id number] : 1965Acct:[id number] Age/Sex: 59 / MADM Date: 09/28/24 Loc: HO.US Attending Dr: Lavinia BILLS Ordering Physician: Lavinia Cleveland Date of Service: 09/28/24 Procedure(s): US renal BI Accession Number(s): [id number] cc: Denisse Jimenez MD; Lavinia Cleveland EXAMINATION: US KIDNEY BILATERAL HISTORY: N20.0 - Calculus of kidney TECHNIQUE: Real-time grayscale ultrasound imaging of the kidneys was performed and images were reviewed. COMPARISON: Correlation is made with a CT of the abdomen without contrast dated 10/05/2023. FINDINGS: Right kidney: The right kidney measures 10.0 x 5.8 x 5.3 cm. Renal parenchymal echotexture and thickness are normal. There are no masses. There is no hydronephrosis or renal calculi. Left Kidney: The left kidney measures 10.0 x 6.7 x 5.8 cm. Renal parenchymal echotexture and thickness are normal. There are no masses. There is no hydronephrosis or renal calculi. US/US renal BI IMPRESSION: Unremarkable renal ultrasound. Electronically signed by: Elias Muller MD 09/28/2024 03:23 PM EDT Dictated By: Elias Muller MD Signed By: <Electronically signed by Elias Muller MD in OV> 09/28/24 1523 DD/ 1505 TD/TT: 09/28/24 1509 Dispenser Operator: us [facility] External Provider IMG US PROCEDURES Final Result * (ABNORMAL) Lipid Panel with Reflex to Direct LDL (09/01/2024 8:05 AM EDT) Triglycerides 117 <150 mg/dL [facility] Comment:Desirable Triglyceri de: less than 150 mg/dLBorderline High Triglyceride 150-199 mg/dLHigh Triglyceride: 200-499 mg/dLVery High Triglyceride: greater than or equal to 5OO mg/dL Cholesterol 150 <200 mg/dL [facility] Comment:Desirable Cholestero l: less than 200 mg/dLBorderline High Cholesterol: 200-239 mg/dLHigh Cholesterol: greater than 239 mg/dL LDL Cholesterol Calculated 88 <100 mg/dL [facility] Comment:Desirable LDL: less than 100 mg/dLNear Optimal/Above Optimal LDL: 110- 129 mg/dLBorderline High LDL: 130-159 mg/dLHigh LDL: 160-189 mg/dLVery High LDL: greater than or equal to 190 mg/dL HDL Cholesterol 39(L) >40 mg/dL [facility] Comment:Desirable HDL: great er than 40 mg/dL Note: This HDL assay may give artificially low results in patients with liver disease. Blood 09/01/2024 8:05 AM EDT 09/01/2024 11:19 AM EDT us eDnisse Jimenez MD LAB BLOOD ORDERABLES Fin al Result [facility] [address] [place] [phone] * (ABNORMAL) Hemoglobin A1c (06/03/2024 10:03 AM EDT) Hemoglobin A1c 6.1(H) <6.0 % [facility] Comment:Hemoglobin A1C Refer ence Range Adults: 4.8 - 6.0 % Non diabetic: < 6.0 % Goal: < 7.0 %Additional Action Suggested: > 8.0 %Note: Hemoglobin A1c results are invalid for patients with abnormal amounts of HbF. Blood transfusions may impact the HbA1c concentration in the patient sample. Estimated Average Glucose 128 mg/dL [facility] Comment:eAG = Estimated ave rage glucose which is %A1C expressed asaverage glucose, using the formula of the X9V-ChxeklfHxhzoeh Glucose study (ADAG), Diabetes Care, Vol.31,#8,Oct. 2007 Blood Venous blood specimen / Unknown 06/03/2024 10:03 AM EDT 06/03/2024 11:45 AM EDT us Denisse Jimenez MD LAB BLOOD ORDERABLES Fin al Result Performing Organization Address [facility] Co de Phone Number [facility] [address] [place] [phone] * Hepatitis Panel, General (05/27/2024 8:04 AM EST) Hepatitis A IgM Nonreactive Nonreactive [facility] Comment:IgM antibodies to VALLEJO V not detected; does not exclude earlyacute or recovered HAV infection. ~Hepatitis B Surface Antibody REACTIVE Nonreactive [facility] Comment:REACTIVE: > 11.99 mI U/mL Hepatitis B Core Antibody Nonreactive Nonreactive [facility] Hepatitis C Antibody Nonreactive Nonreactive [facility] Comment:Antibodies to HCV no t detected; does not exclude early acuteHCV infection. Hepatitis B Surface Ag Negative Negative [facility] Blood 05/27/2024 8:04 AM EST 05/27/2024 11:43 AM EST Denisse Jimenez MD LAB BLOOD ORDERABLES Fin al Result Performing Organization Address [facility] Co de Phone Number [facility] [address] [place] [phone] * HIV-1/2 Antigen and Antibodies, Fourth Generation, with Reflexes (01/14/2024 8:36 AM EDT) Pathologist [facility] HIV AB/AG Nonreactive Nonreactive [facility] Comment:HIV-1 p24 Ag and/or HIV-1/HIV-2 Ab not detected.A test result that is nonreactive does not exclude thepossibility of exposure to or infection with HIV-1 and/orHIV-2. Nonreactive results in this assay for individualswith prior exposure to HIV-1 and/or HIV-2 may be due toantigen and antibody levels that are below the limit ofdetection of this assay.The [place] HIV Ag/Ab Combo assay result andsupplemental assay results should be interpreted inconjunction with the patient's clinical presentation,history and other laboratory results. If the results areinconsistent with clinical evidence, additional testing issuggested to confirm the result. Blood Venous blood specimen / Unknown 01/14/2024 8:36 AM EDT 01/14/2024 8:37 AM EDT Denisse Jimenez MD LAB BLOOD ORDERABLES Fin al Result [facility] [address] [place] [phone] from Last 3 Months or Most Recently Relevant to Health Maintenance [place] [address] [place] [address] [address] [place] [phone] [facility] MEDICAID STAND ADULT Care Teams Paperhanger Pipe Relationship Specialty Start Date End Date Denisse Jimenez MD [address] [place] [phone] PCP - General Internal Medicine 10/18/23
== END 2024-12-10 16:44 | disposition home or self-care (01) ==
LOC: HO.HGI 15:41
PROVIDERS: PCP Internal Medicine; Visit Provider Nurse Practitioner Family
DX: Z01.818 Encounter for other preprocedural examination (principal); Z12.11 Encounter for screening for malignant neoplasm of colon; R10.31 Right lower quadrant pain; R74.01 Elevation of levels of liver transaminase levels; K21.9 Gastro-esophageal reflux disease without esophagitis; N50.811 Right testicular pain; N50.812 Left testicular pain
CPT/HCPCS: 99205

== ENCOUNTER → 2024-12-10 15:40 | Outpatient (BNVA) | payer OTHER, SELFPAY | PROVIDERS: PCP Internal Medicine; Visit Provider Nurse Practitioner Family | DX: Z12.11 Encounter for screening for malignant neoplasm of colon (principal); K21.9 Gastro-esophageal reflux disease without esophagitis; R19.5 Other fecal abnormalities; R10.31 Right lower quadrant pain; R79.89 Other specified abnormal findings of blood chemistry; N50.812 Left testicular pain; N50.811 Right testicular pain | CPT/HCPCS: 99202 ==

== ENCOUNTER 2024-12-11 07:31 | Outpatient (REF) | payer OTHER, SELFPAY ==
--- OUTSIDE RECORDS SUMMARY | 2024-12-11 07:36 | XMS_ITS | Encounter Summary ---
Author Organization [employer] Address [address] [place] [address] Care Team Providers Care Arboriculture Instructor Name Role Phone Denisse Jimenez MD Primary Care Provider + Encounter Details Date Type Department Care Team (Late st Contact Info) Description 10/12/2024 Results Follow-Up [facility] [address] [place], [place] [phone] Denisse Jimenez MD [address] [place], [place] [phone] POCT COVID-19 Ag [place] ID NOW, Hepatic Function Panel, CBC auto differential, Gamma Glutamyl Transferase (GGT) Social History Tobacco Use Types Packs/Day Years Used Date Smoking Tobacco: Former Cigarettes 2 12 - 2008 Passive Smoke Exposure: Past Smokeless Tobacco: Never Comments:Quit [phone] Alcohol Use Standard Drinks/Week Comments Yes 12 [...] Description 12/16/2024 10:15 AM EDT Office Visit [facility] [address] [place] [phone] Denisse Jimenez MD [address] [place] [address] documented as of this encounter Visit Diagnoses Not on filedocumented in this encounter Additional Health Concerns Assessment Noted Time PHQ-9 Depression Total Score: 0 12/09/19 10:49 AM EDT documented as of this encounter Care Teams Arboriculture Instructor Relationship Specialty Start Date End Date Denisse Jimenez MD [address] [place] [address] PCP - General Internal Medicine 10/18/23 documented as of this encounter
--- OUTSIDE RECORDS SUMMARY | 2024-12-11 07:36 | XMS_ITS | Clinical Summary ---
Author Organization [employer] Address [address] [facility] 7t [place] [address] Care Team Providers Care Silk Conditioner Name Role Phone Denisse Jimenez MD Primary [...] g 5 04/02/19 26 Active sodium chloride ([place] Nasal [place]) 0.65 % nasal spray Administer 2 sprays [...] He used to go to cardiology (? [facility] cardiology?) more than 5 years ago. Order [...] Urogram on 09/2023 was Normal. Seen by [facility] urology Assessment & Plan (12/09/2023 11:40 AM EDT): - resolved, pt has upcoming urology appointment next month Assessment & Plan (10/18/2023 5:13 PM EDT): Possible MANDI , referral to urology Sprain of anterior talofibular ligament of left ankle 10/18/2023 Assessment & Plan (10/18/2023 5:13 PM EDT): Dispensed aircast from [employer]. X-ray ordered, Note given for work, activity [...] Department Care Team Description 12/08/2024 Patient Outreach [facility] MED[facility]INE [address] [place] [phone] Denisse Jimenez MD Pre-visit Planning (SDOH screening completed on 05/27/2024) 10/12/2024 9:40 AM EDT Office Visit [facility] WALK[facility]IN C[facility] [address] [place] [phone] Denisse Jimenez MD Chills (Primary Dx); Gastroesophageal reflux disease, unspecified whether esophagitis present; Fatty liver; Gastroenteritis 10/12/2024 Results Follow-Up [facility] [address] [place] [phone] Denisse Jimenez MD POCT COVID-19 Ag [place] ID NOW, Hepatic Function Panel, CBC auto differential, Gamma Glutamyl Transferase (GGT) 10/12/2024 Travel 09/28/2024 Orders Only [facility] External Provider, [facility] 09/24/[address] [address] Denisse Jimenez MD November09/22/2024 3:30 PM EDT Clinical Support [address] [address] Vandana Nice RN Primary hypertension [I10] 09/22/[address] [address] Denisse Jimenez MD 09/22/2024 Travel from Last [...] Description 12/16/2024 10:15 AM EDT Office Visit [facility] MEDICINE [address] [place], [place] [phone] Denisse Jimenez MD [address] [place] [address] Health Maintenance Due Date Last Done Comments [...] Blood Count 11.2(H) 4.8 - 10.8 X10*3/uL [facility] Red Blood Count 5.18 4.60 - 5.80 X10*6/uL [facility] Hemoglobin 14.7 14.0 - 18.0 g/dl [facility] Hematocrit 45.0 42.0 - 52.0 % [facility] Mean Corpuscular Volume 86.9 80.0 - 98.0 fL [facility] Mean Corpuscular Hemoglobin 28.4 27.0 - 33.0 pg [facility] Mean Corpuscular HGB Conc 32.7 31.0 - 36.0 g/dl [facility] Red Cell Distribution Width 12.8 11.0 - 16.0 % [facility] Platelet Count 130(L) 160 - 400 X10*3/uL [facility] Mean Platelet Volume 12.9(H) 9.4 - 12.4 fL [facility] Neutrophils Percent Auto 76.3(H) 45 - 73 % [facility] Imm Gran Pct Auto 0.4 0.0 - 0.4 % [facility] Lymphocytes Percent Auto 12.1(L) 20 - 40 % [facility] Monocytes Percent Auto 10.7 2 - 11 % [facility] Eosinophils Percent Auto 0.1 0 - 4 % [facility] Basophils Percent Auto 0.4 0 - 2 % [facility] NRBC Pct Auto 0.0 0.0 - 0.2 /100WBC [facility] Neutrophils Absolute Auto 8.5(H) 2.0 - 8.3 x10*3/uL [facility] Imm Gran Abs Auto 0.05(H) 0.00 - 0.03 X10*3/uL [facility] Lymphocytes Absolute Auto 1.4 1.2 - 4.9 X10*3/uL [facility] Monocytes Absolute Auto 1.2 0.1 - 1.2 X10*3/uL [facility] Eosinophils Absolute Auto 0.0 0.0 - 0.4 X10*3/uL [facility] Basophils Absolute Auto 0.0 0.0 - 0.2 X10*3/uL [facility] NRBC Abs Auto 0.000 0.0 - 0.012 X10*3/uL [facility] Blood Venous blood specimen / Unknown 10/12/2024 10:08 AM EDT 10/12/2024 11:12 AM EDT Denisse Jimenez MD LAB BLOOD ORDERABLES Fin al Result [facility] [address] [place] [phone] * (ABNORMAL) Gamma Glutamyl Transferase (GGT) (10/12/2024 10:03 AM EDT) Gamma Glutamyl Transpeptidase 70(H) 11 - 51 U/L [facility] Blood Venous blood specimen / Unknown 10/12/2024 10:03 AM EDT 10/12/2024 11:12 AM EDT Denisse Jimenez MD LAB BLOOD ORDERABLES Fin al Result Performing Organization Address [facility] Co de Phone Number [facility] [address] [place] [phone] * (ABNORMAL) Hepatic Function Panel (10/12/2024 10:03 AM EDT) Pathologist [facility] Bilirubin, Total 1.0 0.0 - 1.0 mg/dL [facility] Bilirubin, Direct 0.4 0.0 - 0.5 mg/dL [facility] Aspartate Amino Transferase 38(H) 5 - 37 U/L [facility] Comment:Slight Hemolysis.Int erpret result with caution. Alanine Aminotransferase 30 0 - 40 U/L [facility] Total Protein 8.3(H) 6.5 - 8.0 g/dL [facility] Albumin Level 4.7 3.5 - 5.0 g/dL [facility] Alkaline Phosphatase 66 39 - 117 U/L [facility] Blood Venous blood specimen / Unknown 10/12/2024 10:03 AM EDT 10/12/2024 11:12 AM EDT Denisse Jimenez MD LAB BLOOD ORDERABLES Fin al Result Performing Organization Address [facility] Co de Phone Number [facility] [address] [place] [phone] * POCT COVID-19 Ag [place] ID NOW (10/12/2024 9:41 AM EDT) [facility] Coronavirus Antigen PCR Negative Negative, Indeterminate, None Detected, Invalid, Specimen unsatisfactory for evaluation, Weakly Positive, 2+ Swab 10/12/2024 9:41 AM EDT Denisse Jimenez MD POINT OF CARE TEST ENTER /EDIT ORDERABLES Final Result * US RENAL BI (09/28/2024 3:05 PM EDT) Anatomical Region Laterality Modality Abdomen Ultrasound 09/28/2024 3:05 PM EDT Narrative 09/28/2024 3:26 PM EDT [address] [address] Ultrasound Report Signed Patient: Niels Villavicencio MR#: [id number] : 1965 Acct:[id number] Age/Sex: 59 / M ADM Date: 09/28/24 Loc: HO.US Attending Dr: Lavinia BILLS Ordering Physician: Lavinia Cleveland Date of Service: 09/28/24 Procedure(s): US renal BI Accession Number(s): [id number] cc: Denisse Jimenez MD; Lavinia Cleveland EXAMINATION: [...] 09/28/24 1523 DD/ 1505 TD/TT: 09/28/24 1509 Supervisor Agricultural Education: Procedure Note Donotuseinterpreter, Image - 09/28/[address] [address] Ultrasound Report Signed Patient: Niels Villavicencio RMR#: [id number] : 1965Acct:[id number] Age/Sex: 59 / MADM Date: 09/28/24 Loc: HO.US Attending Dr: Lavinia BILLS Ordering Physician: Lavinia Cleveland Date of Service: 09/28/24 Procedure(s): US renal BI Accession Number(s): [id number] cc: Denisse Jimenez MD; Lavinia Cleveland EXAMINATION: [...] 09/28/24 1523 DD/ 1505 TD/TT: 09/28/24 1509 Supervisor Agricultural Education: us [facility] External Provider IMG US PROCEDURES Final Result * (ABNORMAL) Lipid Panel with Reflex to Direct LDL (09/01/2024 8:05 AM EDT) Triglycerides 117 <150 mg/dL [facility] Comment:Desirable Triglyceri de: less than 150 mg/dLBorderline High Triglyceride 150-199 mg/dLHigh Triglyceride: 200-499 mg/dLVery High Triglyceride: greater than or equal to 5OO mg/dL Cholesterol 150 <200 mg/dL [facility] Comment:Desirable Cholestero l: less than 200 mg/dLBorderline High Cholesterol: 200-239 mg/dLHigh Cholesterol: greater than 239 mg/dL LDL Cholesterol Calculated 88 <100 mg/dL [facility] Comment:Desirable LDL: less than 100 mg/dLNear Optimal/Above Optimal LDL: 110- 129 mg/dLBorderline High LDL: 130-159 mg/dLHigh LDL: 160-189 mg/dLVery High LDL: greater than or equal to 190 mg/dL HDL Cholesterol 39(L) >40 mg/dL [facility] Comment:Desirable HDL: great er than 40 mg/dL Note: This HDL assay may give artificially low results in patients with liver disease. Blood 09/01/2024 8:05 AM EDT 09/01/2024 11:19 AM EDT us Denisse Jimenez MD LAB BLOOD ORDERABLES Fin al Result [facility] [address] [place] [phone] * (ABNORMAL) Hemoglobin A1c (06/03/2024 10:03 AM EDT) Hemoglobin A1c 6.1(H) <6.0 % [facility] Comment:Hemoglobin A1C Refer ence Range Adults: 4.8 - 6.0 % Non diabetic: < 6.0 % Goal: < 7.0 %Additional Action Suggested: > 8.0 %Note: Hemoglobin A1c results are invalid for patients with abnormal amounts of HbF. Blood transfusions may impact the HbA1c concentration in the patient sample. Estimated Average Glucose 128 mg/dL [facility] Comment:eAG = Estimated ave rage glucose which is %A1C expressed asaverage glucose, using the formula of the M0F-YimoeymPwtlmwr Glucose study (ADAG), Diabetes Care, Vol.31,#8,Oct. 2007 Blood Venous blood specimen / Unknown 06/03/2024 10:03 AM EDT 06/03/2024 11:45 AM EDT us Denisse Jimenez MD LAB BLOOD ORDERABLES Fin al Result Performing Organization Address [facility] Co de Phone Number [facility] [address] [place] [phone] * Hepatitis Panel, General (05/27/2024 8:04 AM EST) Hepatitis A IgM Nonreactive Nonreactive [facility] Comment:IgM antibodies to VALLEJO V not detected; does not exclude earlyacute or recovered HAV infection. ~Hepatitis B Surface Antibody REACTIVE Nonreactive [facility] Comment:REACTIVE: > 11.99 mI U/mL Hepatitis B Core Antibody Nonreactive Nonreactive [facility] Hepatitis C Antibody Nonreactive Nonreactive [facility] Comment:Antibodies to HCV no t detected; does not exclude early acuteHCV infection. Hepatitis B Surface Ag Negative Negative [facility] Blood 05/27/2024 8:04 AM EST 05/27/2024 11:43 AM EST Denisse Jimenez MD LAB BLOOD ORDERABLES Fin al Result Performing Organization Address [facility] Co de Phone Number [facility] [address] [place] [phone] * HIV-1/2 Antigen and Antibodies, Fourth Generation, with Reflexes (01/14/2024 8:36 AM EDT) Pathologist [facility] HIV AB/AG Nonreactive Nonreactive [facility] Comment:HIV-1 p24 Ag and/or HIV-1/HIV-2 Ab not detected.A test result that is nonreactive does not exclude thepossibility of exposure to or infection with HIV-1 and/orHIV-2. Nonreactive results in this assay for individualswith prior exposure to HIV-1 and/or HIV-2 may be due toantigen and antibody levels that are below the limit ofdetection of this assay.The Vinobo HIV Ag/Ab Combo assay result andsupplemental assay results should be interpreted inconjunction with the patient's clinical presentation,history and other laboratory results. If the results areinconsistent with clinical evidence, additional testing issuggested to confirm the result. Blood Venous blood specimen / Unknown 01/14/2024 8:36 AM EDT 01/14/2024 8:37 AM EDT Denisse Jimenez MD LAB BLOOD ORDERABLES Fin al Result [facility] [address] [place] [phone] from Last 3 Months or Most Recently Relevant to Health Maintenance [place] [address] [place] [address] [address] [place] [phone] [facility] MEDICAID STAND ADULT Care Teams Silk Conditioner Relationship Specialty Start Date End Date Denisse Jimenez MD [address] [place] [phone] PCP - General Internal Medicine 10/18/23
--- OUTSIDE RECORDS SUMMARY | 2024-12-11 07:36 | XMS_ITS | Encounter Summary ---
Author Organization [employer] Address [address] [facility] 7[address] [place] [address] Care Team Providers Care Dean Of Girls Name Role Phone Denisse Jimenez MD Primary Care Provider + Reason for Visit * Reason Comments Pre-visit Planning SDOH screening compl eted on 05/27/2024 Encounter Details Date Type Department Care Team ([facility] st Contact Info) Description 12/08/2024 Patient Outreach [facility] [address] [place], [place] [phone] Denisse Jimenez MD [address] [place], [place] [phone] Pre-visit Planning (SDOH screening completed on 05/27/2024) Social History Tobacco Use Types Packs/Day Years Used Date Smoking Tobacco: Former Cigarettes 2 12 - 2008 Passive Smoke Exposure: Past Smokeless Tobacco: Never Comments:Quit [id number] Alcohol Use Standard Drinks/Week Comments Yes 12 [...] Description 12/16/2024 10:15 AM EDT Office Visit [facility] [address] [place] [address] Denisse Jimenez MD [address] [place] [phone] documented as of this encounter Visit Diagnoses Not on filedocumented in this encounter Additional Health Concerns Assessment Noted Time PHQ-9 Depression Total Score: 0 12/09/19 10:49 AM EDT documented as of this encounter Care Teams Dean Of Girls Relationship Specialty Start Date End Date Denisse Jimenez MD [address] [place] [phone] PCP - General Internal Medicine 10/18/23 documented as of this encounter
[2024-12-11 08:50] LABS: Alanine Aminotransferase 30 U/L (0-40); Albumin Level 4.4 g/dL (3.5-5.0); Alkaline Phosphatase 88 U/L (39-117); Anion Gap 8 (12-20); Aspartate Amino Transferase 25 U/L (5-37); Blood Urea Nitrogen 12 mg/dL (9-16); Calcium 9.0 mg/dL (8.4-10.2); Carbon Dioxide 23 mmol/L (22-29); Chloride 114 mmol/L (96-108); Estimated Glomerular Filt Rate > 60; Lipase 55 U/L (8-78); Potassium 4.0 mmol/L (3.3-5.1); Sodium 141 mmol/L (135-145); Total Protein 7.1 g/dL (6.5-8.0)
[2024-12-11 09:46] LABS: Ferritin 106 ng/mL (20-250)
[2024-12-11 10:10] LABS: CT PCR Urine NOT DETECTED (Not Detect.); NG PCR Urine NOT DETECTED (Not Detect.)
== END 2024-12-11 07:32 | disposition home or self-care (01) ==
LOC: HO.LAB 07:31
PROVIDERS: PCP Internal Medicine; Visit Provider Nurse Practitioner Family
DX: R79.89 Other specified abnormal findings of blood chemistry (principal); R19.5 Other fecal abnormalities; R10.31 Right lower quadrant pain; N50.819 Testicular pain, unspecified; Z11.3 Encounter for screening for infections with a predominantly sexual mode of transmission; Z11.8 Encounter for screening for other infectious and parasitic diseases
CPT/HCPCS: 80053; 82728; 83690; 86015; 86140; 86364; 87491; 87591

== ENCOUNTER 2024-12-12 08:47 | Outpatient (REF) | payer OTHER, SELFPAY ==
--- OUTSIDE RECORDS SUMMARY | 2024-12-12 08:49 | XMS_ITS | Encounter Summary ---
Author Organization [employer] Address [address] [facility] 7t [place] [address] Care Team Providers Care Ag Service Manager Name Role Phone Denisse Jimenez MD Primary Care Provider + Encounter Details Date Type Department Care Team (Late st Contact Info) Description 10/12/2024 Results Follow-Up [facility] MEDICINE [address] [place], [place] [phone] Denisse Jimenez MD [address] [place], [place] [phone] POCT COVID-19 Ag [place] ID NOW, Hepatic Function Panel, CBC auto differential, Gamma Glutamyl Transferase (GGT) Social History Tobacco Use Types Packs/Day Years Used Date Smoking Tobacco: Former Cigarettes 2 12 - 2008 Passive Smoke Exposure: Past Smokeless Tobacco: Never Comments:Quit [phone] Alcohol Use Standard Drinks/Week Comments Yes 12 [...] Visit [facility] MEDIC[facility] [address] [place] [address] Denisse Jimenez MD [address] [place] [phone] documented as of this encounter Visit Diagnoses Not on filedocumented in this encounter Additional Health Concerns Assessment Noted Time PHQ-9 Depression Total Score: 0 12/09/19 10:49 AM EDT documented as of this encounter Care Teams Ag Service Manager Relationship Specialty Start Date End Date Denisse Jimenez MD [address] [place] [address] PCP - General Internal Medicine 10/18/23 documented as of this encounter
--- OUTSIDE RECORDS SUMMARY | 2024-12-12 08:49 | XMS_ITS | Encounter Summary ---
Author Organization [employer] Address [address] [facility] 7t [place] [address] Care Team Providers Care Bin Worker Name Role Phone Denisse Jimenez MD Primary Care Provider + Encounter Details Date Type Department Care Team (Late st Contact Info) Description 12/11/2024 Orders Only GENERIC EXTERNAL DATA DEPARTMENT Provider, Generic External Data Social History Tobacco Use Types Packs/Day Years Used Date Smoking Tobacco: Former Cigarettes 2 12 - 2008 Passive Smoke Exposure: Past Smokeless Tobacco: Never Comments:Quit [phone] Alcohol Use Standard Drinks/Week Comments Yes 12 [...] 10:15 AM EDT Office Visit [facility] [address] [place], [place] [phone] Denisse Jimenez MD [address] [place], [place] [phone] documented as of this encounter Procedures Procedure Name Priority Date/Time Associated Diagnosis Comments COMPREHENSIVE METABOLIC PANEL, FASTING Routine 12/11/2024 7:49 AM EDT C-REACTIVE PROTEIN Routine 12/11/2024 7: 49 AM EDT LIPASE Routine 12/11/2024 7:49 AM EDT FERRITIN Routine 12/11/2024 7:49 AM EDT CHLAMYDIA/TRICHOMONAS/ NEISSERIA GONORRHOEAE, PCR, URINE Routine 12/11/2024 7:38 AM EDT documented in this encounter Results * Ferritin (12/11/2024 7:49 AM EDT) Ferritin 106 20 - 250 ng/mL [facility] 12/11/2024 7:49 AM EDT 12/11/2024 7:49 AM EDT us Generic External Data Provider LAB BLOOD ORDERAB LES Final Result [facility] [address] [place] [phone] * Lipase (12/11/2024 7:49 AM EDT) Lipase 55 8 - 78 U/L [facility] 12/11/2024 7:49 AM EDT 12/11/2024 7:49 AM EDT Generic External Data Provider LAB BLOOD ORDERAB LES Final Result Performing Organization Address City/[facility]/ZIP Co de Phone Number [facility] [address] [place] [phone] * C-reactive Protein (12/11/2024 7:49 AM EDT) Pathologist [facility] C Reactive Protein <0.04 < or = 0.50 mg/dL [facility] 12/11/2024 7:49 AM EDT 12/11/2024 7:49 AM EDT Generic External Data Provider LAB BLOOD ORDERAB LES Final Result Performing Organization Address City/[facility]/ZIP Co de Phone Number [facility] [address] [place] [phone] * (ABNORMAL) Comprehensive Metabolic Panel, Fasting (12/11/2024 7:49 AM EDT) Sodium 141 135 - 145 mmol/L [facility] Potassium 4.0 3.3 - 5.1 mmol/L [facility] Chloride 114(H) 96 - 108 mmol/L [facility] Carbon Dioxide 23 22 - 29 mmol/L [facility] Anion Gap 8(L) 12 - 20 [facility] Urea Nitrogen (BUN) 12 9 - 16 mg/dL [facility] Creatinine, Serum 0.88 0.5 - 1.4 mg/dL [facility] Estimated Glomerular Filt Rate >60 [facility] Comment:Chronic Kidney Disea se: Estimated GFR < 60 mL/min/1.03i9Cywice Kidney Disease: Estimated GFR < 15 mL/min/1.73m2 Glucose Fasting 119(H) 60 - 99 mg/dL [facility] Comment:A fasting glucose fr om 100-125 mg/dl is considered impaired(pre-diabetes). Calcium 9.0 8.4 - 10.2 mg/dL [facility] Bilirubin, Total 0.7 0.0 - 1.0 mg/dL [facility] Aspartate Amino Transferase 25 5 - 37 U/L [facility] Alanine Aminotransferase 30 0 - 40 U/L [facility] Total Protein 7.1 6.5 - 8.0 g/dL [facility] Albumin Level 4.4 3.5 - 5.0 g/dL [facility] Alkaline Phosphatase 88 39 - 117 U/L [facility] 12/11/2024 7:49 AM EDT 12/11/2024 7:49 AM EDT us Generic External Data Provider LAB BLOOD ORDERAB LES Final Result [facility] [address] [place] [phone] * Chlamydia/Trichomonas/Neisseria gonorrhoeae, PCR, Urine (12/11/2024 7:38 AM EDT) CT PCR, Urine NOT DETECTED Not Detect. [facility] Comment:A not detected test result does not exclude the possibilityof infection because test results can be affected byimproper specimen collection, concurrent antibiotic therapy,or the number of organisms in the specimen which may bebelow the sensitivity of the test. As with many diagnostictests, results from the Xpert CT/NG assay should beinterpreted in conjunction with other laboratory andclinical data available to the clinician.The Xpert CT/NG assay should not be used for the evaluationof suspected sexual abuse or for other medico-legalindications. Additional testing is recommended in anycircumstance when false positive or false negative resultscould lead to adverse medical, social or psychologicalconsequences. NG PCR, Urine NOT DETECTED Not Detect. [facility] Comment:A not detected test result does not exclude the possibilityof infection because test results can be affected byimproper specimen collection, concurrent antibiotic therapy,or the number of organisms in the specimen which may bebelow the sensitivity of the test. As with many diagnostictests, results from the Xpert CT/NG assay should beinterpreted in conjunction with other laboratory andclinical data available to the clinician.The Xpert CT/NG assay should not be used for the evaluationof suspected sexual abuse or for other medico-legalindications. Additional testing is recommended in anycircumstance when false positive or false negative resultscould lead to adverse medical, social or psychologicalconsequences. 12/11/2024 7:38 AM EDT 12/11/2024 8:08 AM EDT us Generic External Data Provider LAB URINE ORDERAB LES Final Result Performing Organization Address City/State/[facility] Co de Phone Number [facility] [address] [place] [phone] documented in this encounter Visit Diagnoses Not on filedocumented in this encounter Additional Health Concerns Assessment Noted Time PHQ-9 Depression Total Score: 0 12/09/19 10:49 AM EDT documented as of this encounter Care Teams Bin Worker Relationship Specialty Start Date End Date Denisse Jimenez MD [address] [place] [phone] PCP - General Internal Medicine 10/18/23 documented as of this encounter
--- OUTSIDE RECORDS SUMMARY | 2024-12-12 08:50 | XMS_ITS | Encounter Summary ---
Author Organization [employer] Address [address] [facility] 7t [place] [address] Care Team Providers Care Director Of Transportation Name Role Phone Denisse Jimenez MD Primary Care Provider + Reason for Visit * Reason Comments Pre-visit Planning SDOH screening compl eted on 05/27/2024 Encounter Details Date Type Department Care Team ([facility] st Contact Info) Description 12/08/2024 Patient Outreach [facility] MED[facility] [address] [place], [place] [phone] Denisse Jimenez MD [address] [place], [place] [phone] Pre-visit Planning (SDOH screening completed on 05/27/2024) Social History Tobacco Use Types Packs/Day Years Used Date Smoking Tobacco: Former Cigarettes 2 12 - 2008 Passive Smoke Exposure: Past Smokeless Tobacco: Never Comments:Quit [phone] Alcohol Use Standard Drinks/Week Comments Yes 12 [...] Description 12/16/2024 10:15 AM EDT Office Visit [facility] [address] [place] [address] Denisse Jimenez MD [address] [place] [address] documented as of this encounter Visit Diagnoses Not on filedocumented in this encounter Additional Health Concerns Assessment Noted Time PHQ-9 Depression Total Score: 0 12/09/19 10:49 AM EDT documented as of this encounter Care Teams Director Of Transportation Relationship Specialty Start Date End Date Denisse Jimenez MD [address] [place] [phone] PCP - General Internal Medicine 10/18/23 documented as of this encounter
--- OUTSIDE RECORDS SUMMARY | 2024-12-12 08:50 | XMS_ITS | Clinical Summary ---
Author Organization [employer] Address [address] [facility] [address] [place] [address] Care Team Providers Care [employer] Worker Name Role Phone Denisse Jimenez MD [...] g 5 04/02/19 26 Active sodium chloride ([place] Nasal [place]) 0.65 % nasal spray Administer 2 sprays [...] He used to go [place] cardi[place] [facility] [place] more than 5 years [...] Urogram on 09/2023 was Normal. Seen [place] [facility] [place] Assessment & Plan (12/09/2023 11:40 AM EDT): - resolved, pt has upcoming urology appointment next month Assessment & Plan (10/18/2023 5:13 PM EDT): Possible MANDI , referral to urology Sprain of anterior talofibular ligament of left ankle 10/18/2023 Assessment & Plan (10/18/2023 5:13 PM EDT): Dispensed aircast from [employer]. X-ray ordered, Note given for work, activity [...] Encounters Date Type Department Care Team Description 12/11/2024 Orders Only GENERIC EXTERNAL DATA DEPARTMENT Provider, Generic External Data 12/08/2024 Patient Outreach [address] [address] Denisse Jimenez MD Pre-visit Planning (SDOH screening completed on 05/27/2024) 10/12/2024 9:40 AM EDT Office Visit [facility] [address] [place] [phone] Denisse Jimenez MD Chills (Primary Dx); Gastroesophageal reflux disease, unspecified whether esophagitis present; Fatty liver; Gastroenteritis 10/12/2024 Results Follow-Up [address] [address] Denisse Jimenez MD POCT COVID-19 Ag [place] ID NOW, Hepatic Function Panel, CBC auto differential, Gamma Glutamyl Transferase (GGT) 10/12/2024 Travel 09/28/2024 Orders Only [facility] External Provider, [facility] 09/24/[address] [address] Denisse Jimenez MD November09/22/2024 3:30 PM EDT Clinical Support [address] [address] Vandana Nice RN Primary hypertension [I10] 09/22/[address] [address] Denisse Jimenez MD 09/22/2024 Travel from Last 3 Months Immunizations Immunization Administration Dates Next Due Influenza, IIV3, injectable 12/09/2013 Influenza, Split (incl. purified surface antigen ) 11/19/2011 Influenza, seasonal, injectable, preservative fr ee 02/03/2024,12/09/2023 Pneumococcal Polysaccharide PPSV23 11/29/2013 Social History Tobacco Use Types Packs/Day Years Used Date Smoking Tobacco: Former Cigarettes 2 12 1 2008 Passive Smoke Exposure: Past Smokeless Tobacco: [...] 10:15 AM EDT Office Visit [facility] [address], [place] [phone] Denisse Jimenez MD [address], [place] [phone] Health Maintenance Due Date Last Done Comments [...] Procedure Name Priority Date/Time Associated Diagnosis Comments FERRITIN Routine 12/11/2024 7:49 AM EDT LIPASE Routine 12/11/2024 7:49 AM EDT C-REACTIVE PROTEIN Routine 12/11/2024 7: 49 AM EDT COMPREHENSIVE METABOLIC PANEL, FASTING Routine 12/11/2024 7:49 AM EDT CHLAMYDIA/TRICHOMONAS /NEISSERIA GONORRHOEAE, PCR, URINE Routine 12/11/2024 7:38 AM EDT CBC WITH AUTO DIFFERENTIAL Routine 10/12/2024 10:08 [...] Relevant to Health Maintenance Results * (ABNORMAL) Comprehensive Metabolic Panel, Fasting (12/11/2024 7:49 AM EDT) Sodium 141 135 - 145 mmol/L [facility] Potassium 4.0 3.3 - 5.1 mmol/L [facility] Chloride 114(H) 96 - 108 mmol/L [facility] Carbon Dioxide 23 22 - 29 mmol/L [facility] Anion Gap 8(L) 12 - 20 [facility] Urea Nitrogen (BUN) 12 9 - 16 mg/dL [facility] Creatinine, Serum 0.88 0.5 - 1.4 mg/dL [facility] Estimated Glomerular Filt Rate >60 [facility] Comment:Chronic Kidney Disea se: Estimated GFR < 60 mL/min/1.26k0Lowfgt Kidney Disease: Estimated GFR < 15 mL/min/1.73m2 Glucose Fasting 119(H) 60 - 99 mg/dL [facility] Comment:A fasting glucose fr om 100-125 mg/dl is considered impaired(pre-diabetes). Calcium 9.0 8.4 - 10.2 mg/dL [facility] Bilirubin, Total 0.7 0.0 - 1.0 mg/dL [facility] Aspartate Amino Transferase 25 5 - 37 U/L [facility] Alanine Aminotransferase 30 0 - 40 U/L [facility] Total Protein 7.1 6.5 - 8.0 g/dL [facility] Albumin Level 4.4 3.5 - 5.0 g/dL [facility] Alkaline Phosphatase 88 39 - 117 U/L [facility] 12/11/2024 7:49 AM EDT 12/11/2024 7:49 AM EDT us Generic External Data Provider LAB BLOOD ORDERAB LES Final Result Performing Organization Address [facility] Co de Phone Number [facility] [address] [place] [phone] * C-reactive Protein (12/11/2024 7:49 AM EDT) C Reactive Protein <0.04 < or = 0.50 mg/dL [facility] 12/11/2024 7:49 AM EDT 12/11/2024 7:49 AM EDT Generic External Data Provider LAB BLOOD ORDERAB LES Final Result Performing Organization Address [facility] Co de Phone Number [facility] [address] [place] [phone] * Lipase (12/11/2024 7:49 AM EDT) Pathologist [facility] Lipase 55 8 - 78 U/L [facility] 12/11/2024 7:49 AM EDT 12/11/2024 7:49 AM EDT us Generic External Data Provider LAB BLOOD ORDERAB LES Final Result Performing Organization Address [facility]/ZIP Co de Phone Number [facility] [address] [place] [phone] * Ferritin (12/11/2024 7:49 AM EDT) [facility] Ferritin 106 20 - 250 ng/mL [facility] 12/11/2024 7:49 AM EDT 12/11/2024 7:49 AM EDT Generic External Data Provider LAB BLOOD ORDERAB LES Final Result Performing Organization Address [facility] Co de Phone Number [facility] [address] [place] [phone] * Chlamydia/Trichomonas/Neisseria gonorrhoeae, PCR, Urine (12/11/2024 7:38 AM EDT) [facility] CT PCR, Urine NOT DETECTED Not Detect. [facility] Comment:A not detected test result does [...] NG PCR, Urine NOT DETECTED Not Detect. [facility] Comment:A not detected test result does [...] Provider LAB URINE ORDERAB LES Final Result [facility] [address] [place] [phone] * (ABNORMAL) CBC auto differential (10/12/2024 10:08 AM EDT) White Blood Count 11.2(H) 4.8 - 10.8 X10*3/uL [facility] Red Blood Count 5.18 4.60 - 5.80 X10*6/uL [facility] Hemoglobin 14.7 14.0 - 18.0 g/dl [facility] Hematocrit 45.0 42.0 - 52.0 % [facility] Mean Corpuscular Volume 86.9 80.0 - 98.0 fL [facility] Mean Corpuscular Hemoglobin 28.4 27.0 - 33.0 pg [facility] Mean Corpuscular HGB Conc 32.7 31.0 - 36.0 g/dl [facility] Red Cell Distribution Width 12.8 11.0 - 16.0 % [facility] Platelet Count 130(L) 160 - 400 X10*3/uL [facility] Mean Platelet Volume 12.9(H) 9.4 - 12.4 fL [facility] Neutrophils Percent Auto 76.3(H) 45 - 73 % [facility] Imm Gran Pct Auto 0.4 0.0 - 0.4 % [facility] Lymphocytes Percent Auto 12.1(L) 20 - 40 % [facility] Monocytes Percent Auto 10.7 2 - 11 % [facility] Eosinophils Percent Auto 0.1 0 - 4 % [facility] Basophils Percent Auto 0.4 0 - 2 % [facility] NRBC Pct Auto 0.0 0.0 - 0.2 /100WBC [facility] Neutrophils Absolute Auto 8.5(H) 2.0 - 8.3 x10*3/uL [facility] Imm Gran Abs Auto 0.05(H) 0.00 - 0.03 X10*3/uL [facility] Lymphocytes Absolute Auto 1.4 1.2 - 4.9 X10*3/uL [facility] Monocytes Absolute Auto 1.2 0.1 - 1.2 X10*3/uL [facility] Eosinophils Absolute Auto 0.0 0.0 - 0.4 X10*3/uL [facility] Basophils Absolute Auto 0.0 0.0 - 0.2 X10*3/uL [facility] NRBC Abs Auto 0.000 0.0 - 0.012 X10*3/uL [facility] Blood Venous blood specimen / Unknown 10/12/2024 10:08 AM EDT 10/12/2024 11:12 AM EDT us Denisse Jimenez MD LAB BLOOD ORDERABLES Fin al Result [facility] [address] [place], [place] [phone] * (ABNORMAL) Gamma Glutamyl Transferase (GGT) (10/12/2024 10:03 AM EDT) Gamma Glutamyl Transpeptidase 70(H) 11 - 51 U/L [facility] Blood Venous blood specimen / Unknown 10/12/2024 10:03 AM EDT 10/12/2024 11:12 AM EDT Denisse Jimenez MD LAB BLOOD ORDERABLES Fin al Result Performing Organization Address [facility] Co de Phone Number [facility] [address] [place] [phone] * (ABNORMAL) Hepatic Function Panel (10/12/2024 10:03 AM EDT) Bilirubin, Total 1.0 0.0 - 1.0 mg/dL [facility] Bilirubin, Direct 0.4 0.0 - 0.5 mg/dL [facility] Aspartate Amino Transferase 38(H) 5 - 37 U/L [facility] Comment:Slight Hemolysis.Int erpret result with caution. Alanine Aminotransferase 30 0 - 40 U/L [facility] Total Protein 8.3(H) 6.5 - 8.0 g/dL [facility] Albumin Level 4.7 3.5 - 5.0 g/dL [facility] Alkaline Phosphatase 66 39 - 117 U/L [facility] Blood Venous blood specimen / Unknown 10/12/2024 10:03 AM EDT 10/12/2024 11:12 AM EDT Denisse Jimenez MD LAB BLOOD ORDERABLES Fin al Result Performing Organization Address [facility] Co de Phone Number [facility] [address] [place] [phone] * POCT COVID-19 Ag [place] ID NOW (10/12/2024 9:41 AM EDT) Coronavirus Antigen PCR Negative Negative, Indeterminate, None Detected, Invalid, Specimen unsatisfactory for evaluation, Weakly Positive, 2+ Swab 10/12/2024 9:41 AM EDT Denisse Jimenez MD POINT OF CARE TEST ENTER /EDIT ORDERABLES Final Result * US RENAL BI (09/28/2024 3:05 PM EDT) Anatomical Region Laterality Modality Abdomen Ultrasound 09/28/2024 3:05 PM EDT Narrative 09/28/2024 3:26 PM EDT [address] [address] Ultrasound Report Signed Patient: Niels Villavicencio MR#: [id number] : 1965 Acct:[id number] Age/Sex: 59 / M ADM Date: 09/28/24 Loc: HO.US [facility] Physician: Lavinia Cleveland Date of Service: 09/28/24 Procedure(s): US renal BI Accession Number(s): [id number] cc: Denisse Jimenez MD; Lavinia Cleveland EXAMINATION: [...] 09/28/24 1523 DD/ 1505 TD/TT: 09/28/24 1509 Bleach Plant Operator: Procedure Note Donotuseinterpreter, Image - 09/28/[address] [address] Ultrasound Report Signed Patient: Niels Villavicencio RMR#: [id number] : 1965Acct:[id number] Age/Sex: 59 / MADM Date: 09/28/24 Loc: .US Attending Dr: Lavinia BURGER Ordering Physician: Lavinia Cleveland Date of Service: 09/28/24 Procedure(s): US renal BI Accession Number(s): [id number] cc: Denisse Jimenez MD; Lavinia Cleveland EXAMINATION: [...] 09/28/24 1523 DD/ 1505 TD/TT: 09/28/24 1509 Bleach Plant Operator: [facility] External Provider IMG US PROCEDURES Final Result * (ABNORMAL) Lipid Panel with Reflex to Direct LDL (09/01/2024 8:05 AM EDT) Triglycerides 117 <150 mg/dL [facility] Comment:Desirable Triglyceri de: less than 150 mg/dLBorderline High Triglyceride 150-199 mg/dLHigh Triglyceride: 200-499 mg/dLVery High Triglyceride: greater than or equal to 5OO mg/dL Cholesterol 150 <200 mg/dL [facility] Comment:Desirable Cholestero l: less than 200 mg/dLBorderline High Cholesterol: 200-239 mg/dLHigh Cholesterol: greater than 239 mg/dL LDL Cholesterol Calculated 88 <100 mg/dL [facility] Comment:Desirable LDL: less than 100 mg/dLNear Optimal/Above Optimal LDL: 110- 129 mg/dLBorderline High LDL: 130-159 mg/dLHigh LDL: 160-189 mg/dLVery High LDL: greater than or equal to 190 mg/dL HDL Cholesterol 39(L) >40 mg/dL [facility] Comment:Desirable HDL: great er than 40 mg/dL Note: This HDL assay may give artificially low results in patients with liver disease. Blood 09/01/2024 8:05 AM EDT 09/01/2024 11:19 AM EDT Denisse Jimenez MD LAB BLOOD ORDERABLES Fin al Result [facility] [address] [place] [phone] * (ABNORMAL) Hemoglobin A1c (06/03/2024 10:03 AM EDT) Hemoglobin A1c 6.1(H) <6.0 % [facility] Comment:Hemoglobin A1C Refer ence Range Adults: 4.8 - 6.0 % Non diabetic: < 6.0 % Goal: < 7.0 %Additional Action Suggested: > 8.0 %Note: Hemoglobin A1c results are invalid for patients with abnormal amounts of HbF. Blood transfusions may impact the HbA1c concentration in the patient sample. Estimated Average Glucose 128 mg/dL [facility] Comment:eAG = Estimated ave rage glucose which is %A1C expressed asaverage glucose, using the formula of the Z0H-PrhsynuTfbubmi Glucose study (ADAG), Diabetes Care, Vol.31,#8,Oct. 2007 Blood Venous blood specimen / Unknown 06/03/2024 10:03 AM EDT 06/03/2024 11:45 AM EDT Denisse Jimenez MD LAB BLOOD ORDERABLES Fin al Result Performing Organization Address [facility]/ZIP Co de Phone Number [facility] [address] [place] [phone] * Hepatitis Panel, General (05/27/2024 8:04 AM EST) Hepatitis A IgM Nonreactive Nonreactive [facility] Comment:IgM antibodies to VALLEJO V not detected; does not exclude earlyacute or recovered HAV infection. ~Hepatitis B Surface Antibody REACTIVE Nonreactive [facility] Comment:REACTIVE: > 11.99 mI U/mL Hepatitis B Core Antibody Nonreactive Nonreactive [facility] Hepatitis C Antibody Nonreactive Nonreactive [facility] Comment:Antibodies to HCV no t detected; does not exclude early acuteHCV infection. Hepatitis B Surface Ag Negative Negative [facility] Blood 05/27/2024 8:04 AM EST 05/27/2024 11:43 AM EST Denisse Jimenez MD LAB BLOOD ORDERABLES Fin al Result Performing Organization Address [facility]/ZIP Co de Phone Number [facility] [address] [place] [phone] * HIV-1/2 Antigen and Antibodies, Fourth Generation, with Reflexes (01/14/2024 8:36 AM EDT) HIV AB/AG Nonreactive Nonreactive [facility] Comment:HIV-1 p24 Ag and/or HIV-1/HIV-2 Ab not detected.A test result that is nonreactive does not exclude thepossibility of exposure to or infection with HIV-1 and/orHIV-2. Nonreactive results in this assay for individualswith prior exposure to HIV-1 and/or HIV-2 may be due toantigen and antibody levels that are below the limit ofdetection of this assay.The [email or web address] HIV Ag/Ab Combo assay result andsupplemental assay results should be interpreted inconjunction with the patient's clinical presentation,history and other laboratory results. If the results areinconsistent with clinical evidence, additional testing issuggested to confirm the result. Blood Venous blood specimen / Unknown 01/14/2024 8:36 AM EDT 01/14/2024 8:37 AM EDT Denisse Jimenez MD LAB BLOOD ORDERABLES Fin al Result [facility] [address] [place] [phone] from Last 3 Months or Most Recently Relevant to Health Maintenance Insurance [facility] AD[facility] Care Teams [employer] Worker Relationship Specialty Start Date End Date Denisse Jimenez MD [address] [place] [phone] PCP - General Internal Medicine 10/18/23
[2024-12-23 20:23] LABS: Calprotectin, Fecal 11 mcg/g
== END 2024-12-12 08:48 | disposition home or self-care (01) ==
LOC: HO.LNP 08:47
PROVIDERS: Visit Provider Nurse Practitioner Family
DX: R19.5 Other fecal abnormalities (principal); R10.9 Unspecified abdominal pain
CPT/HCPCS: 83993; 87338

== ENCOUNTER 2024-12-31 07:36 | Outpatient (REF) | payer OTHER, SELFPAY ==
--- NOTE | ~2024-12-31 | CT_ITS ---
EXAMINATION: CT ABDOMEN AND PELVIS WITH CONTRAST CLINICAL INFORMATION: Right lower quadrant pain. Evaluate appendix, history of diverticulitis. COMPARISON: Ultrasound kidneys 09/28/2024. CT abdomen 10/05/2023. TECHNIQUE: Multidetector volumetric images were obtained from the superior aspect of the liver through the pubic symphysis following administration 85 mL of Omnipaque 350 intravenous contrast. Sagittal and coronal reformatted images were obtained on the technologist's workstation. Oral contrast: Yes This CT examination was performed using dose optimization techniques as appropriate, variously including the following: *Automated exposure control *Adjustment of mA and/or kV according to patient size (this includes techniques or standardized protocols for targeted exams where dose is matched to indication/reason for exam; i.e. extremities or head) *Use of iterative reconstruction technique FINDINGS: LUNG BASES: The visualized lung bases are unremarkable. LIVER, GALLBLADDER, AND BILIARY TREE: Low attenuation with respect to the spleen suggesting hepatic steatosis.. No focal hepatic lesion or biliary ductal dilatation is present. The gallbladder is unremarkable with no evidence of radiopaque gallstones, gallbladder wall thickening, or obvious pericholecystic inflammatory changes. PANCREAS: Unremarkable. No acute inflammatory changes. SPLEEN: Unremarkable. ADRENAL GLANDS: Unremarkable. KIDNEYS AND URETERS: Symmetric enhancement. No renal or ureteral calculi. No suspicious lesions. No hydronephrosis. No perinephric stranding. BLADDER: Unremarkable. GASTROINTESTINAL TRACT: The stomach is nondistended limiting evaluation. No evidence of mechanical bowel obstruction. There is contrast throughout the large colon extending to the level of the rectum. No evidence of colonic wall thickening or pericolonic inflammatory changes.. The appendix is unremarkable. No free fluid. No free air. ABDOMINAL WALL: No significant hernia is appreciated. LYMPH NODES: No adenopathy seen. VASCULAR: Normal caliber aorta. PELVIC VISCERA: Unremarkable. OSSEOUS STRUCTURES: No destructive bony process.. CT/CT abdomen pelvis w IV con IMPRESSION: * No acute intra-abdominal findings identified. Cause of patient's symptoms has not been determined. * Hepatic steatosis. Electronically signed by: Jb Sena MD 12/31/2024 10:49 AM EDT
[2024-12-31] MEDS: iohexoL 350 MG/ML 100 ML INFUS..BTL 85 ML IV (10:21)
[2024-12-31] MEDS: Barium Sulfate Oral (Vanilla) 450 ML ORAL.SUSP 900 ML PO (10:22)
== END 2024-12-31 07:37 | disposition home or self-care (01) ==
LOC: HO.CT 07:36
PROVIDERS: PCP Internal Medicine; Visit Provider Nurse Practitioner Family
DX: R10.31 Right lower quadrant pain (principal); R07.89 Other chest pain; I11.9 Hypertensive heart disease without heart failure
CPT/HCPCS: 74177; 93005; 99202; Q9967

== ENCOUNTER → 2024-12-31 07:38 | Outpatient (BNV) | payer OTHER, SELFPAY | PROVIDERS: PCP Internal Medicine; Visit Provider Radiology Diagnostic Ultrasound | DX: K76.0 Fatty (change of) liver, not elsewhere classified (principal) | CPT/HCPCS: 74177 ==

== ENCOUNTER 2024-12-31 14:05 | Outpatient (AMB) | payer OTHER, SELFPAY ==
--- NOTE | 2024-12-31 14:14 | A.OFFVIS_ITS ---
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 Intake Note: New patient was in [facility] [place] [place] in August stress and echo c/o sob at times Regulated Program Manager Required: No Allergies No Known Allergies Allergy (Verified 12/10/24 15:48) Medication List - Last Reconciled 12/31/24 by Robi Lamar MD acetaminophen 500 mg PO Q6H PRN amlodipine-benazepril 5-20 mg 1 cap PO DAILY aspirin 81 mg PO DAILY atorvastatin 40 mg PO BEDTIME methylcellulose (laxative) (Fiber Laxative (methylcellulose)) 500 mg PO DAILY metoprolol succinate ER 25 mg PO DAILY omeprazole 20 mg PO DAILY polyethylene glycol 3350 (Miralax) 238 grams PO ONCE tadalafil (Cialis) 5 mg PO DAILY 90 days HPI Comments Details: Niels was referred here for prior history of chest discomfort. Patient was admitted in August to [facility] with ongoing chest pain at rest which was worse with burping. Patient was given sublingual nitroglycerin in the hospital and with relief and there was concern for unstable angina. However his biomarkers were negative in his EKGs did not show any significant ischemic changes and therefore he underwent a exercise nuclear study in the hospital. He performed at very high workload with no evidence of myocardial ischemia. His echocardiogram was also done at that time which showed normal LV systolic function with no wall motion abnormality mild left ventricular hypertrophy and moderate left atrial enlargement, overall findings consistent with hypertensive heart disease. He says overall his blood pressure is well controlled on current medications however when he gets stressed out his blood pressure can often be in 160 systolic. He said he does get stressed out with his work and/or his relationships. At other times his blood pressures in the 120 range. He takes aspirin at current point time and currently also undergoing evaluation for gastritis. He denies any prolonged palpitation irregular heartbeat or skipped heartbeats. Denies any lightheadedness, syncope. Does have exertional shortness of breath although he said he exercises regularly. He denies any orthopnea, PND, leg edema. [facility] Medical History Right lower quadrant abdominal pain Acid reflux Testicular pain Elevated LFTs Change in stool Colon cancer screening Diverticulitis HTN (hypertension) Surgical History Hx of splenectomy H/O exploratory laparotomy Family History Father Stroke Brother No problems noted. 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 Review of Systems Const Denies chills, Denies daytime sleepiness, Denies fatigue, Denies fever(s), Denies frequent falls, Denies poor appetite, Denies snoring, Denies stops breath ing during sleep, Denies weakness, Denies weight gain and Denies weight loss Eyes Denies loss of vision ENT Denies dizziness and Denies hearing loss Card Denies chest pain, Denies claudication, Denies leg edema, Denies lightheadedness, Denies palpitations, Denies dyspnea, Denies dyspnea on exertion and Denies orthopnea Resp Denies cough, Denies excessive phlegm production, Denies dyspnea, Denies dyspnea on exertion, Denies snoring and Denies wheezing GI Denies abdominal pain, Denies hematochezia, Denies change in bowel habits, Denies nausea and Denies vomiting Denies dysuria and Denies urinary frequency Musc Denies arthralgias, Denies muscle weakness and Denies numbness Skin/Breast Denies nail changes and Denies rash Neuro Denies Abnormal speech present, Denies dizziness, Denies frequent falls, Denies loss of vision, Denies memory loss, Denies numbness and Denies weakness Psych Denies depression and Denies memory loss Endo Denies fatigue and Denies palpitations Leo/Lymph Reports easy bruising and Reports other (anemia) Aller/Immun Denies wheezing Physical Exam Vital Signs: Last Vital Signs Pulse 74 12/31/24 14:15 BP 120/72 12/31/24 14:15 BMI result Body Mass Index 29.7 Const General: cooperative, comfortable, no acute distress, alert, awake and Physically active Nutritional Appearance: overweight Orientation/consciousness: patient oriented x3 Limitations: no limitations HEENT Head: Yes normocephalic and Yes atraumatic Neck Neck: Yes trachea midline, Yes supple and Yes no JVD Resp Effort & Inspection: normal respiratory effort Auscultation: clear to auscultation bilaterally Cardio Jugular venous distension: no JVD Rate: regular rate Rhythm: regular rhythm Heart sounds: S1 normal heart sound present, S2 normal heart sound present, no click, no gallops, no murmurs and no rubs Bruits: no carotid bruits Peripheral pulses: Peripheral pulses 2+ throughout GI Auscultation: normal bowel sounds Skin General skin exam: no rashes or lesions noted Neuro General: patient oriented x3 and no focal motor deficits Speech: No Abnormal speech present Extrem General: Yes no clubbing, cyanosis or edema Office Procedures EKG Details: EKG shows normal sinus rhythm with occasional PVCs otherwise normal EKG 51376-[id number], Complete Assessment & Plan Assessment & Plan (1) Atypical chest pain: Code(s): R07.89 - Other chest pain Plan: Patient admitted to [facility] with symptoms of chest pain felt to be unstable angina although subsequent workup at high workload within normal limits with no evidence of myocardial ischemia. His chest pain syndrome was fairly atypical. Since then he has that no further exertional chest pain with exercise. He curre ntly maintains good level activity. Most likely cause for his chest pain appears to be gastrointestinal in his currently undergoing workup for the same. At this point time advised continued follow-up. I did suggest him to possibly consider coronary calcium score to further risk stratify and guide medical therapy although he said he currently can not pursue that due to cost issues. (2) Hypertensive heart disease: Code(s): I11.9 - Hypertensive heart disease without heart failure Category: Medical Plan: Hypertensive heart disease with mild LVH and left atrial enlargement probably related to longstanding hypertension. His blood pressure is currently well optimized. He does have episodic hypotension under stressful situations. We advised stress mitigation strategies. He understands agrees. Low-salt diet was discussed. Advised to continue current therapy with blood pressure currently well optimized. No changes in therapies has been made. I do not see currently role for aspirin therapy given his normal myocardial perfusion imaging study unless he has significant calcium buildup in his coronary calcium score testing if he ever pursue that. He is currently on high-intensity statin therapy and target goal LDL should be definitely below 100 mg/dL. Will follow up in the clinic if need be. Thank you for allowing me to partake in his care Coding Level of Care Code New Pt Level 4 (70636) Complex EM visit Add On G2211 Diagnoses Atypical chest pain R07.89 Hypertensive heart disease I11.9 CPT Codes EKG - CPT: 94768-[id number], Complete ([id number])
[2024-12-31 14:15] VITALS: BP 120/72; PULSE 74; BMI 29.7
== END 2024-12-31 14:36 | disposition home or self-care (01) ==
PROVIDERS: PCP Nurse Practitioner Family; Visit Provider Internal Medicine Cardiovascular Disease
DX: R07.89 Other chest pain (principal); I11.9 Hypertensive heart disease without heart failure
CPT/HCPCS: 93010; 99204

== ENCOUNTER 2025-02-04 15:58 | Outpatient (AMB) | payer OTHER, SELFPAY ==
--- NOTE | 2025-02-04 16:01 | A.OFFVIS_ITS ---
Vital Signs 02/04/25 16:02 Height 5 ft 5 in Weight 180 lb BMI 30.0 BP 133/83 Blood Pressure Location Lt brachial Position Sitting Pulse 73 Intake Visit Reasons: follow up labs/GERD Intake Note: Patient follow up for GERD/abd pain and labs/CT scan results Patient cc: constipation in the morning and after medication he is able to do BM. Flower Grower Required: No Accompanied by: Self / Same As Patient Allergies No Known Allergies Allergy (Verified 12/10/24 15:48) Medication List - Last Reconciled 02/04/25 by Angela Guillen CNP acetaminophen 500 mg PO Q6H PRN amlodipine-benazepril 5-20 mg 1 cap PO DAILY atorvastatin 40 mg PO BEDTIME methylcellulose (laxative) (Fiber Laxative (methylcellulose)) 500 mg PO DAILY metoprolol succinate ER 25 mg PO DAILY omeprazole 20 mg PO DAILY polyethylene glycol 3350 (Miralax) 238 grams PO ONCE tadalafil (Cialis) 5 mg PO DAILY 90 days HPI HPI follow up labs/GERD: Details: Patient is a 59-year-old male with PMH of hypertension, hyperlipidemia. FU for chronic abd pain, mixed pattern BM (constipation alternating w/loose stools), and GERD sxs. Review liver imaging and labs. Pt states abd pain is less frequent and less intense than prior visit, especially RLQ pain, though mixed stool pattern persists (morning incomplete evacuation, subsequent BMs later w/fiber/Miralax use). Reports waking at night occasionally to have BM; unsure if dietary related. Reports dietary indiscretion with late evening snacking (cookies after dinner). Tolerating fiber tabs and Miralax daily for constipation; adherent to current regimen, reports good BM evacuation with current routine. Reflux improved on omeprazole 20mg qAM, only mild sxs when consuming greasy foods. Alcohol socially (2-3 beers mostly on Sat), denies smoking. Denies new GI sxs, bleeding, or wt loss. No issues obtaining meds. No interval hospitalizations or urgent visits. [facility] Medical History Right lower quadrant abdominal pain Acid reflux Testicular pain Elevated LFTs Change in stool Colon cancer screening Diverticulitis HTN (hypertension) Surgical History Hx of splenectomy H/O exploratory laparotomy Family History Father Stroke Brother No problems noted. 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 Review of Systems Const Reports as per HPI ENT Reports as per HPI Card Reports as per HPI Resp Reports as per HPI GI Reports as per HPI Reports as per HPI Physical Exam Vital Signs: Last Vital Signs Pulse 73 02/04/25 16:02 BP 133/83 02/04/25 16:02 BMI result Body Mass Index 30.0 Const General: healthy appearing, no acute distress and well developed Nutritional Appearance: average body habitus Orientation/consciousness: patient oriented x3 HEENT Head: Yes normal to inspection, Yes normocephalic and Yes atraumatic Face and sinus: Yes normal facial exam Eyes General: appearance normal, both eyes and all related structures Neck Neck: Yes normal visual inspection Resp Effort & Inspection: normal respiratory effort, able to speak in complete sentences, no tracheal deviation and symmetric chest movement Cardio Jugular venous distension: no JVD Neuro General: patient oriented x3 Gait exam (Neuro): Normal gait present Psych Appearance: grossly normal Mental Status: mental status grossly normal Speech and movement: Normal speech and movement present Affect: normal affect Attitude: cooperative Thought process: Normal thought process present Thought content: Normal thought content present Insight: Good insight present (Psych) Judgement: Good judgement present (Psych) Assessment & Plan Assessment & Plan (1) Acid reflux: Code(s): K21.9 - Gastro-esophageal reflux disease without esophagitis Category: Medical Qualifiers: Esophagitis presence: esophagitis presence not specified Qualified Code(s): K21.9 - Gastro-esophageal reflux disease without esophagitis Plan: Improved; intermittent sxs related to dietary indiscretion; compliant w/ omeprazole. Additional Testing: EGD scheduled for further eval. Meds: Continue omeprazole 20mg qAM, 90-day supply on file w/ refill (good till May). Lifestyle Rec: - Continue to avoid high fat/greasy/fried foods, minimize late meals/snacks; avoid triggers. - Re-emphasized upright positioning after meals. Referrals: EGD scheduled. FU: Post-procedure reassessment/review of EGD. (2) Change in stool: Code(s): R19.5 - Other fecal abnormalities Category: Medical Plan: Overall improved, though some persistent nocturnal sxs; good response to daily fiber and Miralax. no red flag sxs. Awaiting further eval. Additional Testing: Pending colonoscopy. Meds: Continue fiber tabs (as tolerated) and Miralax daily; plan for separate Miralax rx for colonoscopy prep. Lifestyle Rec: - Maintain hydration; review diet for triggers (skylar late night snacks); encourage structured meal timing. - Provided bowel prep instructions in EN/ES. Referrals: GI for scoping (EGD/colonoscopy). FU: Review scoping results; re-evaluate bowel regimen after procedure. (3) Elevated LFTs: Code(s): R79.89 - Other specified abnormal findings of blood chemistry Category: Medical Plan: Stable, improved LFTs, Imaging c/w steatosis,no focal hepatic lesions, no evidence autoimmune or celiac dz. Additional Testing: None at this time Meds: No hepatic-specific rx. Continue to avoid hepatotoxins. Lifestyle Rec: - Reinforced diet low in processed foods, < saturated/trans fats, avoid late night eating/snacks; focus on real/whole foods (fruits, veg, lean protein, healthy oils). - Alcohol moderation advised. - Provided handout w/ diet recs. FU: Monitor LFTs as clinically indicated Plan Follow-up after endoscopy or sooner as needed Time: I spent a total of 20 minutes on the date of encounter which includes: Preparing to see the patient (reviewed previous documentation, test results and medical history) Performing a medically appropriate exam and/or evaluation Ordering medications, tests, and procedures Documenting clinical information in the health record Medications: Refilled polyethylene glycol 3350 (Miralax) per colonoscopy prep instructions 238 grams PO ONCE 238 grams 0RF Coding Level of Care Code Established Pt Est Pt Level 3 (46841) Patient Type Established Diagnoses Gastroesophageal reflux disease, unspecified whether esophagitis present K21.9 Esophagitis presence: esophagitis presence not specified Change in stool R19.5 Elevated LFTs R79.89
[2025-02-04 16:02] VITALS: BP 133/83; PULSE 73
--- OUTSIDE RECORDS SUMMARY | 2025-02-04 18:42 | XMS_ITS | Encounter Summary ---
Author Organization [employer] Address [address] [place] [address] Care Team Providers Care Bean Sprout Grower Name Role Phone Denisse Jimenez MD Primary Care Provider + Reason for Visit * Reason Comments Med Refill Encounter Details Date Type Department Care Team ([facility] st Contact Info) Description 02/01/2025 Refill [facility] [address], [place] [phone] Denisse Jimenez MD [address], [place] [phone] Social History Tobacco Use Types Packs/Day Years Used Date Smoking Tobacco: Former Cigarettes 2 12 - 2008 Passive Smoke Exposure: Past Smokeless Tobacco: Never Comments:Quit [id number] Alcohol Use Standard Drinks/Week Comments Yes 12 (1 standard drink = 0.6 oz pu re alcohol) on weekends Alcohol Answer Date Recorded How often do you have a drink containing alcohol ? 2 12/16/2024 How many drinks containing a lcohol do you have on a typical day when you are drinking? 0 12/16/2024 How often do you have six or more drinks on one occasion? 0 12/16/2024 Depression Answer Date Recorded Patient Health Questionnaire-9 Score 1 12/16/2024 Patient Health Questionnaire-9 Score 1 12/16/2024 Last PHQ-9: Questionnaire Data Not on file 0 12/16/2024 Housing Stability Answer Date Recorded What is [...] Date Recorded Patient Health Questionnaire-2 Score 0 12/16/2024 Internet Access Answer Date Recorded Internet Access [...] Care Team (Late st Contact Info) Description 02/25/2025 11:45 AM EST Office Visit [facility] [address] [place] [phone] Denisse Jimenez MD [address] [place] [phone] documented as of this encounter Visit Diagnoses Not on filedocumented in this encounter Additional Health Concerns Assessment Noted Time PHQ-9 Depression Total Score: 1 12/17/19 25 10:48 AM EDT documented as of this encounter Care Teams Bean Sprout Grower Relationship Specialty Start Date End Date Denisse Jimenez MD [address] [place] [phone] PCP - General Internal Medicine 10/18/23 documented as of this encounter
--- OUTSIDE RECORDS SUMMARY | 2025-02-04 18:42 | XMS_ITS | Clinical Summary ---
Author Organization [employer] Address [address] [facility] [address] [place] [address] Care Team Providers Care Assistant Professor In Family Studies Name Role Phone Denisse Jimenez MD Primary Care Provider + Allergies No known active allergies Medications Blood Pressure Monitoring (Blood Pressure Cuff) misc Use daily as prescribed 1 each 12/09/19 24 Active loratadine (Claritin) 10 MG tablet Take 1 tablet (10 mg) by mouth Once per day. 30 tablet 04/02/19 Active fluticasone (Flonase) 50 MCG/ACT nasal spray Administer 2 sprays into each nostril Once per day. Shake gently. Before first use, prime pump. After use, clean tip and replace cap. 16 g 04/02/19 Active aspirin 81 MG EC tablet Take 1 tablet (81 mg) by mouth Once per day. 30 tablet 09/04/19 Active metoprolol succinate XL (Toprol XL) 25 MG 24 hr tablet Take 1 tablet (25 mg) by mouth Once per day. Do not crush or chew. 30 tablet 09/04/19 Active pantoprazole (Protonix) 40 MG EC tablet Take 1 tablet (40 mg) by mouth before breakfast and before evening meal. Do not crush, chew, or split. 60 tablet 10/03/19 25 Active amLODIPine-elizabeth azepril (Lotrel) 5-20 MG capsule Take 1 capsule by mouth Once per day. 30 capsule 12/17/19 Active cyclobenzaprin e (Flexeril) 10 MG tablet Take 1 tablet (10 mg) by mouth at bedtime for 10 days. 10 tablet 12/17/19 Active atorvastatin (Lipitor) 40 MG tablet TAKE 1 TABLET BY MOUTH ONCE DAILY AT BEDTIME 30 tablet 11 02/05/20 25 Active atorvastatin (Lipitor) 40 MG tablet Take 1 tablet (40 mg) by mouth at bedtime. 30 tablet 11 01/14/20 24 Discontinued acetaminophen (Tylenol Extra Strength) 500 MG tablet Take 1 tablet (500 mg) by mouth every 6 (six) hours if needed for mild pain. 120 tablet 12/17/19 Diclofenac Sodium 1 % gel Apply 1 inch topically if needed in the morning and at bedtime (pain). 60 g 12/17/19 Active Problems Problem Noted Date Diagnosed Date Lumbar sprain 12/16/2024 Assessment & Plan (12/16/2024 3:37 PM EDT): There are no red flags at this time. Advised to use Tylenol and diclofenac gel twice daily x 1 week then as needed Advised to put heat to affected area and follow-up with me in 2 months or earlier as needed Gastroesophageal reflux disease 10/12/2024 Assessment & Plan [...] He used to go to cardiology (? [facility] cardiology?) more than 5 years ago. Order [...] Urogram on 09/2023 was Normal. Seen by [facility] urology Assessment & Plan (12/09/2023 11:40 AM EDT): - resolved, pt has upcoming urology appointment next month Assessment & Plan (10/18/2023 5:13 PM EDT): Possible MANDI , referral to urology Sprain of anterior talofibular ligament of left ankle 10/18/2023 Assessment & Plan (10/18/2023 5:13 PM EDT): Dispensed aircast from [employer]. X-ray ordered, Note given for work, activity as tolerated Primary hypertension 10/18/2023 Assessment & Plan (12/16/2024 3:37 PM EDT): Uncontrolled, mostly at home. Increase Lotrel to 5/20 mg, continue metoprolol 25 mg Follow up with the Nurse for blood pressure check in 4 weeks. Continue with a low sodium diet and regular exercise as tolerated. For BP < or = to 139/89 (or 129/79 for diabetic patients) continue current medication regimen and follow up with PCP in 8 weeks. For BP > or = to 140/90 (or 130/80 for diabetic patients) increase Metoprolol Succinate to 50 mg once a day Follow up with the Nurse for a second blood pressure check in 2-4 weeks if BP 140-150/90+ (or 130-150/80+ for diabetic patients). Refer to [facility] for BP >150/90+. If second Nurse visit is needed: For BP < or = to 139/89 (or 129/79 for diabetic patients) continue current medication regimen and follow up with the PCP in 4 weeks. For BP > or = to 140/90 (or 130/80 for diabetic patients) increase Lotrel to 5/40 mg once a day Follow up with the PCP in 4 weeks. Assessment & Plan (09/03/2024 3:54 PM EDT): [...] PM EST): Uncontrolled, will switch to amlodipine/benazepril 10 and fu with me in Counseled re low salt diet/increase moderate physical activity. Check home BP BIW and prn CP/VALLEJO/MERCADO Non smoking patient. Assessment & Plan (12/09/2023 11:46 AM EDT): Uncontrolled Increase Amlodipine to 10 mg and f/u with me in 6-8 weeks Counseled re low salt diet/increase moderate physical activity. Check home BP BIW and prn CP/VALLJEO/MERCADO Non smoking patient. Assessment & Plan (10/18/2023 [...] Encounters Date Type Department Care Team Description 02/01/[address] [address] Denisse Jimenez MD 01/14/2025 3:30 PM EDT Clinical Support [address] [address] Jeniffer Sanchez RN Primary hypertension 01/14/2025 Travel 12/16/2024 10:15 AM EDT Office Visit [address] [address] Denisse Jimenez MD Primary hypertension (Primary Dx); Lumbar sprain, initial encounter 12/16/2024 Travel 12/14/[address] [address] Denisse Jimenez MD Chart prep 12/11/2024 Orders Only GENERIC EXTERNAL DATA DEPARTMENT Provider, Generic External Data 12/08/2024 Patient Outreach [address] [address] Denisse Jimenez MD Pre-visit Planning (SDOH screening completed on 05/27/2024) from Last 3 Months Immunizations Immunization Administration Dates Next Due Influenza, IIV3, injectable 12/09/2013 Influenza, Split (incl. purified surface antigen ) 11/19/2011 Influenza, seasonal, injectable, preservative fr ee 02/03/2024,12/09/2023 Pneumococcal Polysaccharide PPSV23 11/29/2013 Social History Tobacco Use Types Packs/Day Years Used Date Smoking Tobacco: Former Cigarettes 2 12 1 - 2008 Passive Smoke Exposure: Past Smokeless Tobacco: Never Tobacco Cessation:Counseling Given: Not Answered Comments:Quit [id number] Alcohol Use Standard Drinks/Week Comments Yes 12 [...] Sign Reading Time Taken Comments Blood Pressure 140/90 01/14/2025 4:18 PM EDT Pulse 84 01/14/2025 4:18 PM EDT Temperature 36.2 C (97.1 F) 12/16/2024 10:32 AM EDT Respiratory Rate 22 12/16/2024 10:32 AM EDT Oxygen Saturation 98% 10/12/2024 9:04 AM EDT Inhaled Oxygen Concentration - - Weight 82.1 kg (181 lb) 12/16/2024 10:32 AM EDT Height 171 cm (5' 7.32 ) 12/16/2024 10:32 AM EDT Body Mass Index 28.08 12/16/2024 10:32 AM EDT Plan of Treatment Upcoming Encounters Date Type Department Care Team (Late st Contact Info) Description 02/25/2025 11:45 AM EST Office Visit [facility] [address] [place] [address] Denisse Jimenez MD [address] [place], [place] [phone] Health Maintenance Due Date Last Done Comments CT Colonography 1966 Colonoscopy 1966 Colorectal Cancer Screening 1966 FIT DNA/Cologuard 1966 FIT 1966 FOBT 1966 Sigmoidoscopy 1966 DTaP/Tdap/Td Vaccines (1 - Tdap) 1985 Hepatitis A Vaccines (1 of 2 - Risk 2-dose series) 1985 Hepatitis B Vaccines (1 of 3 - 19+ 3-dose series) 1985 Pneumococcal Vaccine: 50+ Years (2 of 2 - PCV) 2016 11/29/2013 RSV Patients and Patients Aged 60 years or older (1 - Risk 50-74 years 1-dose series) 2016 Zoster Vaccines (1 of 2) 2016 Dental Oral Exam 09/28/2022 03/30/2022 Dental Prophylaxis 09/28/2022 03/30/2022 Dental X-Ray: Bitewings 03/31/2023 03/30/2022 COVID-19 Vaccine ( season) 2024 05/29/2021, 08/16/2020, 07/19/2020 Influenza Vaccine (#1) 2024 , 12/09/2023, 12/09/2013, Additional history exists Dental X-Ray: Full Mouth 03/31/2025 03/30/2022 SDOH Screening 05/27/2025 05/27/2024 Diabetes: Hemoglobin A1C 06/03/2025 06/03/2024, 12/24 Alcohol/Substance Use Screening 12/16/2025 12/16/2024 Depression Screening 12/16/2025 12/16/2024, 12/17/19 25 Disability Screening 12/16/2025 12/16/2024 Tobacco Screening 12/16/2025 12/16/2024 Lipid Panel 09/01/2029 09/01/2024, 12/24, 10/21/2023 HIV Screening Completed 01/14/2024 Hepatitis C Screening [...] Procedure Name Priority Date/Time Associated Diagnosis Comments CT ABDOMEN PELVIS W CONTRAST Routine 12/31/2024 10:04 AM EDT ACTIN (SMOOTH MUSCLE) ANTIBODY (IGG) Routine 12/11/2024 7:49 AM EDT TISSUE TRANSGLUTAMINASE AB, IGA Routine 12/11/2024 7:49 AM EDT FERRITIN Routine 12/11/2024 7:49 AM EDT LIPASE Routine 12/11/2024 7:49 AM EDT C-REACTIVE PROTEIN Routine 12/11/2024 7: 49 AM EDT COMPREHENSIVE METABOLIC PANEL, FASTING Routine 12/11/2024 7:49 AM EDT CHLAMYDIA/TRICHOMONAS/NE ISSERIA GONORRHOEAE, PCR, URINE Routine 12/11/2024 7:38 AM EDT LIPID PANEL WITH REFLEX TO DIRECT LDL Routine 09/01/2024 8:05 AM EDT Primary hypertension HEMOGLOBIN A1C Routine 06/03/2024 10:03 AM EDT Erectile dysfunction, unspecified erectile dysfunction type HEPATITIS PANEL, GENERAL Routine 025 8:04 AM EST Hyperlipidemia LDL goal <100 [...] Recently Relevant to Health Maintenance Results * CT Abdomen Pelvis w/ Contrast (12/31/2024 10:04 AM EDT) Anatomical Region Laterality Modality Body, Pelvis, Abdomen Computed T omography 12/31/2024 10:0 4 AM EDT Narrative 12/31/2024 10:52 AM EDT [place] [address] CT Scan Report Signed Patient: Niels Villavicencio MR#: [id number] : 1965 Acct:[id number] Age/Sex: 59 / M ADM Date: 12/31/24 Loc: HO.CT Attending Dr: Angela Guillen CNP Ordering Physician: Angela Guillen CNP Date of Service: 12/31/24 Procedure(s): CT abdomen pelvis w IV con Accession Number(s): [id number] cc: Denisse Jimenez MD; Angela Guillen CNP Report Number: [id number]: Total DLP = 380.00 mGy-cm Reason for Exam: R10.31 - Right lower quadrant pain EXAMINATION: CT ABDOMEN AND PELVIS WITH CONTRAST CLINICAL INFORMATION: Right lower quadrant pain. Evaluate appendix, history of diverticulitis. COMPARISON: Ultrasound kidneys 09/28/2024. CT abdomen 10/05/2023. TECHNIQUE: Multidetector volumetric images were obtained from the superior aspect of the liver through the pubic symphysis following administration 85 mL of Omnipaque 350 intravenous contrast. Sagittal and coronal reformatted images were obtained on the technologist's workstation. Oral contrast: Yes This CT examination was performed using dose optimization techniques as appropriate, variously including the following: *Automated exposure control *Adjustment of mA and/or kV according to patient size (this includes techniques or standardized protocols for targeted exams where dose is matched to indication/reason for exam; i.e. extremities or head) *Use of iterative reconstruction technique FINDINGS: LUNG BASES: The visualized lung bases are unremarkable. LIVER, GALLBLADDER, AND BILIARY TREE: Low attenuation with respect to the spleen suggesting hepatic steatosis.. No focal hepatic lesion or biliary ductal dilatation is present. The gallbladder is unremarkable with no evidence of radiopaque gallstones, gallbladder wall thickening, or obvious pericholecystic inflammatory changes. PANCREAS: Unremarkable. No acute inflammatory changes. SPLEEN: Unremarkable. ADRENAL GLANDS: Unremarkable. KIDNEYS AND URETERS: Symmetric enhancement. No renal or ureteral calculi. No suspicious lesions. No hydronephrosis. No perinephric stranding. BLADDER: Unremarkable. GASTROINTESTINAL TRACT: The stomach is nondistended limiting evaluation. No evidence of mechanical bowel obstruction. There is contrast throughout the large colon extending to the level of the rectum. No evidence of colonic wall thickening or pericolonic inflammatory changes.. The appendix is unremarkable. No free fluid. No free air. ABDOMINAL WALL: No significant hernia is appreciated. LYMPH NODES: No adenopathy seen. VASCULAR: Normal caliber aorta. PELVIC VISCERA: Unremarkable. OSSEOUS STRUCTURES: No destructive bony process.. CT/CT abdomen pelvis w IV con IMPRESSION: * No acute intra-abdominal findings identified. Cause of patient's symptoms has not been determined. * Hepatic steatosis. Electronically signed by: Jb Sena MD 12/31/2024 10:49 AM EDT Dictated By: Jb Sena MD Signed By: <Electronically signed by Jb Sena MD in OV> 12/31/24 1049 DD/ 1004 TD/TT: 12/31/24 1022 Investigator Cash Shortage: LAITH Procedure Note Donotuseinterpreter, Image - 12/31/[address] [address] [address] Scan Report Signed Patient: Niels Villavicencio RMR#: [id number] : 1965Acct:[id number] Age/Sex: 59 / MADM Date: 12/31/24 Loc: HO.CT Attending Dr: Angela Guillen CNP Ordering Physician: Angela Guillen CNP Date of Service: 12/31/24 Procedure(s): CT abdomen pelvis w IV con Accession Number(s): [id number] cc: Denisse Jimenez MD; Angela Guillen CNP Report Number: [id number]: Total DLP = 380.00 mGy-cm Reason for Exam: R10.31 - Right lower quadrant pain EXAMINATION: CT ABDOMEN AND PELVIS WITH CONTRAST CLINICAL INFORMATION: Right lower quadrant pain. Evaluate appendix, history of diverticulitis. COMPARISON: Ultrasound kidneys 09/28/2024. CT abdomen 10/05/2023. TECHNIQUE: Multidetector volumetric images were obtained from the superior aspect of the liver through the pubic symphysis following administration 85 mL of Omnipaque 350 intravenous contrast. Sagittal and coronal reformatted images were obtained on the technologist's workstation. Oral contrast: Yes This CT examination was performed using dose optimization techniques as appropriate, variously including the following: *Automated exposure control *Adjustment of mA and/or kV according to patient size (this includes techniques or standardized protocols for targeted exams where dose is matched to indication/reason for exam; i.e. extremities or head) *Use of iterative reconstruction technique FINDINGS: LUNG BASES: The visualized lung bases are unremarkable. LIVER, GALLBLADDER, AND BILIARY TREE: Low attenuation with respect to the spleen suggesting hepatic steatosis.. No focal hepatic lesion or biliary ductal dilatation is present. The gallbladder is unremarkable with no evidence of radiopaque gallstones, gallbladder wall thickening, or obvious pericholecystic inflammatory changes. PANCREAS: Unremarkable. No acute inflammatory changes. SPLEEN: Unremarkable. ADRENAL GLANDS: Unremarkable. KIDNEYS AND URETERS: Symmetric enhancement. No renal or ureteral calculi. No suspicious lesions. No hydronephrosis. No perinephric stranding. BLADDER: Unremarkable. GASTROINTESTINAL TRACT: The stomach is nondistended limiting evaluation. No evidence of mechanical bowel obstruction. There is contrast throughout the large colon extending to the level of the rectum. No evidence of colonic wall thickening or pericolonic inflammatory changes.. The appendix is unremarkable. No free fluid. No free air. ABDOMINAL WALL: No significant hernia is appreciated. LYMPH NODES: No adenopathy seen. VASCULAR: Normal caliber aorta. PELVIC VISCERA: Unremarkable. OSSEOUS STRUCTURES: No destructive bony process.. CT/CT abdomen pelvis w IV con IMPRESSION: * No acute intra-abdominal findings identified. Cause of patient's symptoms has not been determined. * Hepatic steatosis. Electronically signed by: Jb Sena MD 12/31/2024 10:49 AM EDT Dictated By: Jb Sena MD Signed By: <Electronically signed by Jb Sena MD in OV> 12/31/24 1049 DD/ 1004 TD/TT: 12/31/24 1022 Investigator Cash Shortage: LAITH [facility] External Provider IMG CT PROCEDURES Final Result * (ABNORMAL) Comprehensive Metabolic Panel, Fasting (12/11/2024 7:49 AM EDT) Sodium 141 135 - 145 mmol/L [facility] Potassium 4.0 3.3 - 5.1 mmol/L [facility] Chloride 114(H) 96 - 108 mmol/L [facility] Carbon Dioxide 23 22 - 29 mmol/L [facility] Anion Gap 8(L) 12 - 20 [facility] Urea Nitrogen (BUN) 12 9 - 16 mg/dL [facility] Creatinine, Serum 0.88 0.5 - 1.4 mg/dL [facility] Estimated Glomerular Filt Rate >60 [facility] Comment:Chronic Kidney Disea se: Estimated GFR < 60 mL/min/1.60w0Doluzs Kidney Disease: Estimated GFR < 15 mL/min/1.73m2 Glucose Fasting 119(H) 60 - 99 mg/dL [facility] Comment:A fasting glucose fr om 100-125 mg/dl is considered impaired(pre-diabetes). Calcium 9.0 8.4 - 10.2 mg/dL [facility] Bilirubin, Total 0.7 0.0 - 1.0 mg/dL [facility] Aspartate Amino Transferase 25 5 - 37 U/L [facility] Alanine Aminotransferase 30 0 - 40 U/L [facility] Total Protein 7.1 6.5 - 8.0 g/dL [facility] Albumin Level 4.4 3.5 - 5.0 g/dL [facility] Alkaline Phosphatase 88 39 - 117 U/L [facility] 12/11/2024 7:49 AM EDT 12/11/2024 7:49 AM EDT us Generic External Data Provider LAB BLOOD ORDERAB LES Final Result [facility] [address] [place] [phone] * Actin (Smooth Muscle) Antibody (IgG) (12/11/2024 7:49 AM EDT) Smooth Muscle Antibody <20 <20 U [facility] Comment:Reference Range: <20 U: Negative>or=20 U: PositiveAntibodies recognizing actin are the main componentof smooth muscle antibodies associated with auto- immune liver disease. Actin antibodies are found inapproximately 75% of patients with autoimmunehepatitis (AIH) type 1, approximately 65% of patientswith autoimmune cholangitis, approximately 30% ofpatients with primary biliary cirrhosis andapproximately 2% of healthy controls. High values areclosely correlated with AIH type 1.THIS TEST WAS PERFORMED AT:[facility] [place] [id number] BARBOSA MD,PHD 12/11/2024 7:49 AM EDT 12/11/2024 7:49 AM EDT us Generic External Data Provider LAB BLOOD ORDERAB LES Final Result Performing Organization Address [facility] Co de Phone Number [facility] [address] [place] [phone] * Tissue Transglutaminase Antibody, IgA (12/11/2024 7:49 AM EDT) Transglutaminase IgA <1.0 U/mL [facility] Comment:Value Interpretation ----- <15.0 Antibody not detected> or = 15.0 Antibody detectedTHIS TEST WAS PERFORMED AT:[employer] [place] [id number] ALMEIDA MD 12/11/2024 7:49 AM EDT 12/11/2024 7:49 AM EDT Generic External Data Provider LAB BLOOD ORDERAB LES Final Result Performing Organization Address [facility] Co de Phone Number [facility] [address] [place] [phone] * C-reactive Protein (12/11/2024 7:49 AM EDT) C Reactive Protein <0.04 < or = 0.50 mg/dL [facility] 12/11/2024 7:49 AM EDT 12/11/2024 7:49 AM EDT Generic External Data Provider LAB BLOOD ORDERAB LES Final Result Performing Organization Address [facility] Co de Phone Number [facility] [address] [place] [phone] * Lipase (12/11/2024 7:49 AM EDT) Lipase 55 8 - 78 U/L [facility] 12/11/2024 7:49 AM EDT 12/11/2024 7:49 AM EDT us Generic External Data Provider LAB BLOOD ORDERAB LES Final Result Performing Organization Address City/[facility]/ZIP Co de Phone Number [facility] [address] [place] [phone] * Ferritin (12/11/2024 7:49 AM EDT) Pathologist [facility] Ferritin 106 20 - 250 ng/mL [facility] 12/11/2024 7:49 AM EDT 12/11/2024 7:49 AM EDT Generic External Data Provider LAB BLOOD ORDERAB LES Final Result Performing Organization Address [facility] de Phone Number [facility] [address] [place] [phone] * Chlamydia/Trichomonas/Neisseria gonorrhoeae, PCR, Urine (12/11/2024 7:38 AM EDT) [facility] CT PCR, Urine NOT DETECTED Not Detect. [facility] Comment:A not detected test result [...] NG PCR, Urine NOT DETECTED Not Detect. [facility] Comment:A not detected test result [...] ORDERAB LES Final Result Performing Organization Address [facility] Co de Phone Number [facility] [address] [place] [address] [phone] * (ABNORMAL) Lipid Panel with Reflex to Direct LDL (09/01/2024 8:05 AM EDT) Triglycerides 117 <150 mg/dL [facility] Comment:Desirable Triglyceri de: less than 150 mg/dLBorderline High Triglyceride 150-199 mg/dLHigh Triglyceride: 200-499 mg/dLVery High Triglyceride: greater than or equal to 5OO mg/dL Cholesterol 150 <200 mg/dL [facility] Comment:Desirable Cholestero l: less than 200 mg/dLBorderline High Cholesterol: 200-239 mg/dLHigh Cholesterol: greater than 239 mg/dL LDL Cholesterol Calculated 88 <100 mg/dL [facility] Comment:Desirable LDL: less than 100 mg/dLNear Optimal/Above Optimal LDL: 110- 129 mg/dLBorderline High LDL: 130-159 mg/dLHigh LDL: 160-189 mg/dLVery High LDL: greater than or equal to 190 mg/dL HDL Cholesterol 39(L) >40 mg/dL [facility] Comment:Desirable HDL: great er than 40 mg/dL Note: This HDL assay may give artificially low results in patients with liver disease. Blood 09/01/2024 8:05 AM EDT 09/01/2024 11:19 AM EDT us Denisse Jimenez MD LAB BLOOD ORDERABLES Fin al Result Performing Organization Address City/[facility] Co de Phone Number [facility] [address] [place] [phone] * (ABNORMAL) Hemoglobin A1c (06/03/2024 10:03 AM EDT) Hemoglobin A1c 6.1(H) <6.0 % [facility] Comment:Hemoglobin A1C Refer ence Range Adults: 4.8 - 6.0 % Non diabetic: < 6.0 % Goal: < 7.0 %Additional Action Suggested: > 8.0 %Note: Hemoglobin A1c results are invalid for patients with abnormal amounts of HbF. Blood transfusions may impact the HbA1c concentration in the patient sample. Estimated Average Glucose 128 mg/dL [facility] Comment:eAG = Estimated ave rage glucose which is %A1C expressed asaverage glucose, using the formula of the K5T-RqikhseMltgzdt Glucose study (ADAG), Diabetes Care, Vol.31,#8,2007 Blood Venous blood specimen / Unknown 06/03/2024 10:03 AM EDT 06/03/2024 11:45 AM EDT us Denisse Jimenez MD LAB BLOOD ORDERABLES Fin al Result Performing Organization Address [facility] Co de Phone Number [facility] [address] [place] [phone] * Hepatitis Panel, General (05/27/2024 8:04 AM EST) Hepatitis A IgM Nonreactive Nonreactive [facility] Comment:IgM antibodies to VALLEJO V not detected; does not exclude earlyacute or recovered HAV infection. ~Hepatitis B Surface Antibody REACTIVE Nonreactive [facility] Comment:REACTIVE: > 11.99 mI U/mL Hepatitis B Core Antibody Nonreactive Nonreactive [facility] Hepatitis C Antibody Nonreactive Nonreactive [facility] Comment:Antibodies to HCV no t detected; does not exclude early acuteHCV infection. Hepatitis B Surface Ag Negative Negative [facility] Blood 05/27/2024 8:04 AM EST 05/27/2024 11:43 AM EST us Denisse Jimenez MD LAB BLOOD ORDERABLES Fin al Result Performing Organization Address [facility] Co de Phone Number [facility] [address] [place] [phone] * HIV-1/2 Antigen and Antibodies, Fourth Generation, with Reflexes (01/14/2024 8:36 AM EDT) [facility] HIV AB/AG Nonreactive Nonreactive [facility] Comment:HIV-1 p24 Ag and/or HIV-1/HIV-2 Ab not detected.A test result that is nonreactive does not exclude thepossibility of exposure to or infection with HIV-1 and/orHIV-2. Nonreactive results in this assay for individualswith prior exposure to HIV-1 and/or HIV-2 may be due toantigen and antibody levels that are below the limit ofdetection of this assay.The [employer] HIV Ag/Ab Combo assay result andsupplemental assay results should be interpreted inconjunction with the patient's clinical presentation,history and other laboratory results. If the results areinconsistent with clinical evidence, additional testing issuggested to confirm the result. 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
== END 2025-02-04 16:58 | disposition home or self-care (01) ==
LOC: HO.HGI 15:59
PROVIDERS: PCP Internal Medicine; Visit Provider Nurse Practitioner Family
DX: K21.9 Gastro-esophageal reflux disease without esophagitis (principal); R19.5 Other fecal abnormalities; R79.89 Other specified abnormal findings of blood chemistry
CPT/HCPCS: 99213

== ENCOUNTER → 2025-02-04 15:58 | Outpatient (BNVA) | payer OTHER, SELFPAY | PROVIDERS: PCP Internal Medicine; Visit Provider Nurse Practitioner Family | DX: K21.9 Gastro-esophageal reflux disease without esophagitis (principal); R19.5 Other fecal abnormalities; R79.89 Other specified abnormal findings of blood chemistry | CPT/HCPCS: 99212 ==